=== PATIENT | female | born 1970 | race American Indian/Alaskan Native ===

== ENCOUNTER 2017-11-29 05:04 | Inpatient (IN) | payer BC, OTHER ==
[2017-11-29] MEDS ORDERED: Sodium Chloride 0.9% 1,000 ML IV ONE (05:53)
--- NOTE | 2017-11-29 06:03 | ED PDOC ---
Arrival/HPI - General Historian: Patient - History of Present Illness Time/Duration: 24 hours Symptom Onset: Gradual Symptom Course: Worsening Quality: Stabbing Severity Level: 7 Activities at Onset: Light Context: Sitting <Diogenes Arredondo - Last Filed: 11/29/17 06:59> <Shalom Trcae - Last Filed: 12/01/17 07:25> - General Chief Complaint: Anxiety Time Seen by Provider: 11/29/17 05:16 - History of Present Illness Narrative History of Present Illness (Text): 11/29/17 05:15 CC: Shortness of Breath HPI: Ms. Bello Baca is a 47 year old female with a past medical history of Rheum. arthritis, asthma, and past blood transfusions who presents with a 24 hour history of shortness of breath and chills that awoke the patient from sleep. Patient has been experiencing a cough with sputum production as well. Patient describes right sided chest pain that radiates up into shoulder. Right sided chest Pain is sharp and consistent since yesterday. Patient reports a stressful week of work in [place] which she thinks may have caused her present symptoms along with her racing heart. Patient also admits to poor oral intake and a dry mouth, and has not eaten much in past 2-3 days other than water. Patient describes a 25 pound weight loss in 2.5 months. Patient describes multiple episodes of pneumonia in the past. Patient denies recent international travel. PMHx: Rheum. arthritis, asthma, and past blood transfusions PSHx: Darcy, bilateral wrist fractures with metal placement, gastric bypass surgery All: NKDA Social: denies etoh, substance and tobacco use Fam hx: HTN on both sides Meds: Fe, oxycontin, ibuprofen, protonix, albuterol, Orencia, furosemide 40 mg BID PMD: Dr. Mcmanus Rheum: Dr. Hall ([facility] [place]) (Diogenes Arredondo) Past Medical History - Provider Review Nursing Documentation Reviewed: Yes - Travel History Have you recently traveled outside [place] w/in the past 3 mons?: No - Infectious Disease Hx of Infectious Diseases: None - Tetanus Immunization Tetanus Immunization: Unknown - Cardiac Hx Pacemaker: No - Pulmonary Hx Respiratory Disorders: No - Neurological Hx Neurological Disorder: No - HEENT Hx HEENT Disorder: No - Renal Hx Renal Disorder: No - Endocrine/Metabolic Hx Endocrine Disorders: No - Hematological/Oncological Hx Blood Transfusions: Yes Hx Blood Transfusion Reaction: No - Integumentary Hx Dermatological Disorder: No - Musculoskeletal/Rheumatological Other/Comment: B/L WRIST FX - Gastrointestinal Other/Comment: gastric bypass sx. cholesytectomy - Genitourinary/Gynecological Hx Genitourinary Disorders: No - Psychiatric Hx Emotional Abuse: No Hx Physical Abuse: No Hx Substance Use: No - Surgical History Hx Orthopedic Surgery: Yes (B/L WRIST METAL PLACEMENT) - Anesthesia Hx Anesthesia Reactions: No Hx Malignant Hyperthermia: No - Suicidal Assessment Feels Threatened In Home Enviroment: No <Diogenes Arredondo - Last Filed: 11/29/17 06:59> Family/Social History - Physician Review Nursing Documentation Reviewed: Yes Family/Social History: Unknown Family HX Smoking Status: Never Smoked Hx Alcohol Use: No Hx Substance Use: No Hx Substance Use Treatment: No <Diogenes Arredondo - Last Filed: 11/29/17 06:59> Allergies/Home Meds <Diogenes Arredondo - Last Filed: 11/29/17 06:59> <Trace Rausch DO - Last Filed: 12/01/17 07:25> Allergies/Adverse Reactions: Allergies No Known Allergies Allergy (Verified 04/11/15 19:53) Home Medications: Home Meds Medication Instructions Recorded Confirmed Cholecalciferol [Vitamin D] 50,000 iu PO QWK 11/29/17 11/29/17 Fentanyl 100 mcg TD Q72 11/29/17 11/29/17 Ibuprofen [Motrin Tab] 800 mg PO TID PRN 11/29/17 11/29/17 Omeprazole 40 mg PO DAILY 11/29/17 11/29/17 Oxycodone HCl/Acetaminophen 1 each PO Q6 PRN 11/29/17 11/29/17 [Percocet 10-325 mg Tablet] diaZEpam [Valium] 10 mg PO BID 11/29/17 11/29/17 Review of Systems - Physician Review All systems were reviewed & negative as marked: Yes - Review of Systems Constitutional: Weight Change (25 lb weight loss in 3 months) Eyes: Normal ENT: Normal Respiratory: SOB, Cough, Sputum Cardiovascular: Chest Pain (R sided), Palpitations Gastrointestinal: Normal. absent: Abdominal Pain Genitourinary Female: Normal. absent: Dysuria Musculoskeletal: Normal Skin: Normal Neurological: Headache Endocrine: Normal Hemo/Lymphatic: Normal Psychiatric: Normal, Anxiety <Diogenes Arredondo Last Filed: 11/29/17 06:59> Physical Exam Vital Signs Reviewed: Yes Temperature: Afebrile Blood Pressure: Normal Pulse: Tachycardic Respiratory Rate: Normal Appearance: Positive for: Well-Appearing, Non-Toxic, Uncomfortable (mild) Pain Distress: Mild Mental Status: Positive for: Alert and Oriented X 3 - Systems Exam Head: Present: Atraumatic, Normocephalic Pupils: Present: PERRL Extroacular Muscles: Present: EOMI Conjunctiva: Present: Normal Mouth: Present: Moist Mucous Membranes Neck: Present: Normal Range of Motion Respiratory/Chest: Present: Decreased Breath Sounds, Rhonchi (RLQ>LLQ), Tender to Palpation (R sided TTP midclavicular line T3-T4). No: Clear to Auscultation , Respiratory Distress, Accessory Muscle Use Cardiovascular: Present: Regular Rate and Rhythm, Normal S1, S2, Tachycardic Abdomen: Present: Normal Bowel Sounds. No: Tenderness, Distention, Peritoneal Signs Back: Present: Normal Inspection. No: CVA Tenderness, Midline Tenderness, Paraspinal Tenderness Upper Extremity: Present: Normal Inspection, Tenderness (radiation from R upoper chest pain into R shoulder and back into shoulder blade), Neurovascularly Intact. No: Cyanosis, Edema Lower Extremity: Present: Normal Inspection. No: Edema Neurological: Present: GCS=15, CN II-XII Intact, Speech Normal Skin: Present: Warm, Dry, Normal Color. No: Rashes Psychiatric: Present: Alert, Oriented x 3, Normal Insight, Normal Concentration <Diogenes Arredondo Last Filed: 11/29/17 06:59> Vital Signs Temp Pulse Resp BP Pulse Ox 11/29/17 09:22 98.7 F 105 H 20 98/48 L 97 11/29/17 08:03 116 H 25 H 109/37 L 96 11/29/17 07:35 99.2 F 120 H 20 80/40 L 97 11/29/17 05:23 98.2 F 122 H 18 149/88 100 Medical Decision Making <Diogenes Arredondo Last Filed: 11/29/17 06:59> <Trace Rausch DO - Last Filed: 12/01/17 07:25> ED Course and Treatment: 11/29/17 06:11 Impression: 47 year old female with hx of RA, asthma for asthma attack vs PNA vs panic attack vs arrythmia vs Plan: CBC CMP CXR UA, UDS TSH NS @ 250 mL/hr EKG, Trop POC urine preg test Toradol 30 mg IVP 11/29/17 06:34 EKG: sinus tachy @ [address] elevations or T wave changes. 11/29/17 06:44 Ca 8.3 T bili 1.5 Awaiting remainder of labs. 11/29/17 06:59 Leukocytosis 30k CXR shows RUL infiltrate, most likely pneumonia. Call made to medical sales associate for admission to hospitalist team. Started patient on antibiotics Azithromycin 500 mg IVPB. Blood cultures pending. 11/29/17 07:04 Spoke with medical sales associate and patient will be admitted under hospitalist team for pneumonia treatment. (Diogenes Arredondo) - Lab Interpretations Microbiology Results: Microbiology Results 11/29/17 07:20 Blood Blood Culture - Preliminary NO GROWTH AFTER 24 HOURS 11/29/17 06:49 Urine,Clean Catch Urine Culture - Preliminary Gram Positive Cocci Gram Negative Mitch 11/29/17 06:58 Blood Blood Culture - Preliminary NO GROWTH AFTER 24 HOURS Lab Results: 11/29/17 06:10 11/29/17 06:10 Lab Results 11/29/17 14:00: Lactic Acid 4.7 H* 11/29/17 13:20: Urine Opiates Screen Negative, Urine Methadone Screen Negative, Ur Barbiturates Screen Negative, Ur Phencyclidine Scrn Negative, Ur Amphetamines Screen Negative, U Benzodiazepines Scrn Positive H, U Oth Cocaine Metabols Negative, U Cannabinoids Screen Negative 11/29/17 13:20: Ur L.pneumophila Ag Negative 11/29/17 11:41: POC Glucose (mg/dL) 63 L 11/29/17 11:00: Lactic Acid 3.3 H 11/29/17 09:20: Procalcitonin 20.61 H 11/29/17 08:30: Blood Type A POSITIVE, Antibody Screen Negative, BBK History Checked Patient has bt 11/29/17 06:49: Beta HCG, Quant 5.48 11/29/17 06:49: Free T4 1.42, Thyroxine (T4) 5.6, Total T3 0.33 L 11/29/17 06:49: Iron 31 L, TIBC 325, % Saturation 10 L 11/29/17 06:49: Magnesium 1.6 L, Ferritin 106.0 11/29/17 06:49: Urine Color Yellow, Urine Appearance Clear, Urine pH 6.0, Ur Specific [place] 1.015, Urine Protein 30 H, Urine Glucose (UA) Negative, Urine Ketones Negative, Urine Blood Negative, Urine Nitrate Negative, Urine Bilirubin Negative, Urine Urobilinogen 0.2, Ur Leukocyte Esterase Large H, Urine RBC 1 - 3 , Urine WBC 25 - 30, Ur Epithelial Cells 6 - 8, Amorphous Sediment Few, Urine Bacteria Many, Coarse Granular Casts Trace H, Urine Other Uyeast 11/29/17 06:49: Urine Opiates Screen Positive H, Urine Methadone Screen Negative , Ur Barbiturates Screen Negative, Ur Phencyclidine Scrn Negative, Ur Amphetamines Screen Negative, U Benzodiazepines Scrn Positive H, U Oth Cocaine Metabols Negative, U Cannabinoids Screen Negative 11/29/17 06:10: TSH 3rd Generation 0.13 L 11/29/17 06:10: Sodium 140, Potassium 3.6, Chloride 107, Carbon Dioxide 20 L, Anion Gap 16, BUN 18, Creatinine 1.0, Est GFR ( Amer) > 60, Est GFR (Non- Af Amer) 59, Random Glucose 79, Calcium 8.3 L, Total Bilirubin 1.5 H, AST 37 H, ALT 14, Alkaline Phosphatase 107, Total Protein 6.9, Albumin 3.3, Globulin 3.5, Albumin/Globulin Ratio 0.9 L 11/29/17 06:10: WBC 30.3 H* D, RBC 3.51, Hgb 9.9 L, Hct 30.8 L, MCV 87.7, MCH 28.2, MCHC 32.1, RDW 16.6 H, Plt Count 308, MPV 12.3 H, Gran % 94.4 H, Lymph % ( Auto) 1.7 L, [place] % (Auto) 3.9, Eos % (Auto) 0.0 L, Baso % (Auto) 0.0, Gran # 28.61 H, Lymph # (Auto) 0.5 L, [place] # (Auto) 1.2 H, Eos # (Auto) 0.0, Baso # ( Auto) 0.01, Neutrophils % (Manual) 90 H, Band Neutrophils % 4 H, Lymphocytes % ( Manual) 4 L, Monocytes % (Manual) 1, Toxic Granulation Slight, Platelet Evaluation Normal, Plt Clumps, EDTA Present, Hypochromasia 1+, Anisocytosis ( manual) 1+ 11/29/17 05:00: Lactate Dehydrogenase 752 H, Total Creatine Kinase 46, Troponin I 0.01 - RAD Interpretation Radiology Orders: 11/29/17 05:53 CHEST PORTABLE [RAD] Stat 11/29/17 07:48 CHEST W/O CONTRAST [CT] Stat 11/29/17 14:31 ABD & PELVIS IV CONTRAST ONLY [CT] Stat ANGIO CHEST PE PROTOCOL [CT] Stat - Medication Orders Current Medication Orders: Acetaminophen (Tylenol 325mg Tab) 650 mg PO Q6H PRN PRN Reason: Fever >100.4 F OR mild pain Last Admin: 11/29/17 11:05 Dose: 650 mg MAR Pain/Vitals Document 11/29/17 11:05 RA (Rec: 11/29/17 11:05 RA [id number]) Pain Reassessment Is This A Pain ReAssessment? Yes Sleep Is patient sleeping during reassessment? No Presence of Pain Presence of Pain No Re-Assess: MAR Pain/Vitals Document 11/29/17 12:05 RA (Rec: 11/29/17 13:34 RA [id number]) Pain Reassessment Is This A Pain ReAssessment? Yes Sleep Is patient sleeping during reassessment? No Presence of Pain Presence of Pain No Albuterol Sulfate (Albuterol 0.083% Inhal Bharati (2.5 Mg/3 Ml) Ud) 2.5 mg INH [id number] PRN PRN Reason: Shortness of Breath Last Admin: 11/30/17 14:16 Dose: 2.5 mg Enoxaparin Sodium (Lovenox) 40 mg SC DAILY ANNA PRN Reason: Protocol Last Admin: 11/30/17 12:59 Dose: 40 mg Subcutaneous Administrations Document 11/30/17 12:59 JUR (Rec: 11/30/17 12:59 JUR [id number]) Injection Site MAR Injection Site Left Abdomen Charges for Administration # of Subcutaneous Administrations 1 Hydrocortisone Sodium Succinate (Solu-Cortef) 100 mg IVP Q8 [facility] Last Admin: 12/01/17 05:41 Dose: 100 mg IVP Administration Document 12/01/17 05:41 KGD (Rec: 12/01/17 05:41 KGD [facility] [id number]) Charges for Administration # of IVP Administrations 1 Vancomycin HCl (Vancomycin 1gm) 1 gm in 250 mls @ 167 mls/hr IVPB Q12H ANNA PRN Reason: Protocol Last Admin: 11/29/17 15:08 Dose: 167 mls/hr eMAR Start Stop Document 11/29/17 15:08 RA (Rec: 11/29/17 15:08 RA [id number]) Intravenous Solution Start Date 11/29/17 Start Time 15:08 End Date 11/29/17 End time 16:10 Total Infusion Time 62 Azithromycin (Zithromax 500mg In Ns) 500 mg in 250 mls @ 167 mls/hr IVPB DAILY ANNA PRN Reason: Protocol Last Admin: 11/30/17 12:59 Dose: 167 mls/hr eMAR Start Stop Document 11/30/17 12:59 JUR (Rec: 11/30/17 13:00 JUR [id number]) Intravenous Solution Start Date 11/30/17 Start Time 12:59 End Date 11/30/17 End time 14:29 Total Infusion Time 90 Meropenem (Merrem Iv 1 Gm Premix) 50 mls @ 100 mls/hr IVPB Q8 ANNA PRN Reason: Protocol Stop: 12/04/17 06:29 Last Admin: 12/01/17 05:41 Dose: 100 mls/hr eMAR Start Stop Document 12/01/17 05:41 KGD (Rec: 12/01/17 05:41 KGD [facility] [id number]) Intravenous Solution Start Date 12/01/17 Start Time 05:41 Linezolid (Zyvox 600mg/300ml D5w) 600 mg in 300 mls @ 200 mls/hr IVPB Q12 ANNA PRN Reason: Protocol Stop: 12/06/17 22:01 Last Admin: 11/30/17 21:31 Dose: 200 mls/hr eMAR Start Stop Document 11/30/17 21:31 KGD (Rec: 11/30/17 21:31 KGD [facility] [id number]) Intravenous Solution Start Date 11/30/17 Start Time 21:31 Potassium Chloride 20 meq/ (Sodium Chloride) 1,010 mls @ 200 mls/hr IV .Q5H3M ANNA Ketorolac Tromethamine (Toradol) 30 mg IVP Q6 PRN PRN Reason: Pain, severe (8-10) Last Admin: 12/01/17 03:45 Dose: 30 mg MAR Pain Assessment Document 12/01/17 03:45 KGD (Rec: 12/01/17 03:[address]) Pain Reassessment Is this a pain reassessment? No Sleep Is patient sleeping during reassessment? No Presence of Pain Presence of Pain Yes Pain Scale Used Pain Scale Used Numeric Location Pain Location Body Site Back Description Description Intermittent Intensity of Pain at present 6 IVP Administration Document 12/01/17 03:45 KGD (Rec: 12/01/17 03:[address]) Charges for Administration # of IVP Administrations 1 Lorazepam (Ativan) 1 mg IVP Q6H PRN; Protocol PRN Reason: Nausea/Emesis/Anxiety Last Admin: 11/30/17 19:00 Dose: 1 mg IVP Administration Document 11/30/17 19:00 [id number] (Rec: 11/30/17 19:00 [id number] [id number] ) Charges for Administration # of IVP Administrations 1 Behavioural Document 11/30/17 19:00 [id number] (Rec: 11/30/17 19:00 [id number] [facility] [id number] ) Maintenance Maintenance Dose No Nonmedicinal Nonmedicinal Interventions Redirect Behavior Behavior for Medication: Anxiety Re-Assess: Reassess Psych Meds Document 11/30/17 19:30 KGD (Rec: 11/30/17 20:02 KGD [facility] [id number] Reassess Psych Med Effective Midodrine (Proamatine) 10 mg PO Q8 ANNA Last Admin: 12/01/17 05:41 Dose: 10 mg Morphine Sulfate (Morphine) 1 mg IVP Q4H PRN PRN Reason: Pain, moderate (4-7) Last Admin: 12/01/17 04:02 Dose: 1 mg MAR Pain Assessment Document 12/01/17 04:02 KGD (Rec: 12/01/17 04:02 KGD [facility] [id number]) Pain Reassessment Is this a pain reassessment? No Presence of Pain Presence of Pain Yes Pain Scale Used Pain Scale Used Numeric Location Pain Location Body Site Back Description Description Intermittent Intensity of Pain at present 8 IVP Administration Document 12/01/17 04:02 KGD (Rec: 12/01/17 04:02 KGD [facility] [id number]) Charges for Administration # of IVP Administrations 1 Ondansetron HCl (Zofran Inj) 4 mg IVP Q6H PRN PRN Reason: Nausea/Vomiting Last Admin: 11/30/17 13:00 Dose: 4 mg IVP Administration Document 11/30/17 13:00 JUR (Rec: 11/30/17 13:00 JUR [id number]) Charges for Administration # of IVP Administrations 1 Pantoprazole Sodium (Protonix Ec Tab) 40 mg PO 0600 ANNA Last Admin: 12/01/17 05:41 Dose: 40 mg Discontinued Medications Acetylcysteine (Acetylcysteine 20%) 4 ml IH ONCE ONE Stop: 11/29/17 10:01 Last Admin: 11/29/17 10:58 Dose: 4 ml Albuterol/Ipratropium (Duoneb 3 Mg/0.5 Mg (3 Ml) Ud) 3 ml IH ONCE ONE Stop: 11/29/17 10:01 Last Admin: 11/29/17 10:58 Dose: 3 ml Alprazolam (Xanax) 0.25 mg PO ONCE ONE PRN Reason: Protocol Stop: 11/29/17 18:46 Last Admin: 11/29/17 18:53 Dose: 0.25 mg Behavioural Document 11/29/17 18:53 AE (Rec: 11/29/17 18:53 AE [id number]) Maintenance Maintenance Dose No Nonmedicinal Nonmedicinal Interventions See nurse's notes Behavior Behavior for Medication: Anxiety Re-Assess: Reassess Psych Meds Document 11/29/17 19:53 KGD (Rec: 11/29/17 20:51 KGD [facility] [id number]) Reassess Psych Med Effective Dextrose (Dextrose 50% Inj) 50 ml IVP STAT STA Stop: 11/29/17 11:44 Last Admin: 11/29/17 11:49 Dose: 50 ml IVP Administration Document 11/29/17 11:49 RA (Rec: 11/29/17 11:49 RA [id number]) Charges for Administration # of IVP Administrations 1 Sodium Chloride (Sodium Chloride 0.9%) 1,000 mls @ 250 mls/hr IV .Q4H ONE Stop: 11/29/17 09:52 Last Admin: 11/29/17 06:19 Dose: 250 mls/hr eMAR Start Stop Document 11/29/17 06:19 IT (Rec: 11/29/17 06:20 IT [id number]) Intravenous Solution Start Date 11/29/17 Start Time 06:19 Ceftriaxone Sodium (Rocephin 1 Gram Ivpb) 1 gm in 100 mls @ 100 mls/hr IVPB STAT STA PRN Reason: Protocol Stop: 11/29/17 07:54 Last Admin: 11/29/17 07:25 Dose: 100 mls/hr eMAR Start Stop Document 11/29/17 07:25 SRE (Rec: 11/29/17 07:30 SRE [id number]) Intravenous Solution Start Date 11/29/17 Start Time 07:25 End Date 11/29/17 End time 08:25 Total Infusion Time 60 Azithromycin (Zithromax 500mg In Ns) 500 mg in 250 mls @ 167 mls/hr IVPB STAT STA PRN Reason: Protocol Stop: 11/29/17 08:25 Last Admin: 11/29/17 08:48 Dose: 167 mls/hr eMAR Start Stop Document 11/29/17 08:48 SRE (Rec: 11/29/17 08:48 SRE [id number]) Intravenous Solution Start Date 11/29/17 Start Time 08:48 End Date 11/29/17 End time 10:20 Total Infusion Time 92 Sodium Chloride (Sodium Chloride 0.9%) 1,000 mls @ 999 mls/hr IV .Q1H1M STA Stop: 11/29/17 08:51 Last Admin: 11/29/17 08:14 Dose: 999 mls/hr eMAR Start Stop Document 11/29/17 08:14 SRE (Rec: 11/29/17 08:15 SRE [id number]) Intravenous Solution Start Date 11/29/17 Start Time 07:55 End Date 11/29/17 End time 08:55 Total Infusion Time 60 Magnesium 2 gm/50 ml NS (Magnesium Sulfate 2 Gm/50 Ml Ns) 2 gm in 50 mls @ 50 mls/hr IVPB ONCE ONE Stop: 11/29/17 09:38 Last Admin: 11/29/17 09:01 Dose: 50 mls/hr eMAR Start Stop Document 11/29/17 09:01 SRE (Rec: 11/29/17 09:02 SRE [id number]) Intravenous Solution Start Date 11/29/17 Start Time 09:00 End Date 11/29/17 End time 09:30 Total Infusion Time 30 Sodium Chloride (Sodium Chloride 0.9%) 1,000 mls @ 999 mls/hr IV .Q1H1M STA Stop: 11/29/17 09:39 Last Admin: 11/29/17 09:00 Dose: 999 mls/hr eMAR Start Stop Document 11/29/17 09:00 SRE (Rec: 11/29/17 09:01 SRE [id number]) Intravenous Solution Start Date 11/29/17 Start Time 09:00 End Date 11/29/17 End time 10:00 Total Infusion Time 60 Sodium Chloride (Sodium Chloride 0.9%) 1,000 mls @ 999 mls/hr IV .Q1H1M STA Stop: 11/29/17 11:47 Last Admin: 11/29/17 10:58 Dose: 999 mls/hr eMAR Start Stop Document 11/29/17 10:58 RA (Rec: 11/29/17 10:58 RA [id number]) Intravenous Solution Start Date 11/29/17 Start Time 10:58 End Date 11/29/17 End time 12:00 Total Infusion Time 62 Sodium Chloride (Sodium Chloride 0.9%) 1,000 mls @ 250 mls/hr IV .Q4H [facility] Last Admin: 11/29/17 14:17 Dose: 250 mls/hr eMAR Start Stop Document 11/29/17 14:17 RA (Rec: 11/29/17 14:17 RA [id number]) Intravenous Solution Start Date 11/29/17 Start Time 14:17 End Date 11/29/17 End time 18:30 Total Infusion Time 253 Sodium Chloride (Sodium Chloride 0.9%) 1,000 mls @ 999 mls/hr IV .Q1H1M STA Stop: 11/29/17 11:48 Last Admin: 11/29/17 14:14 Dose: 999 mls/hr eMAR Start Stop Document 11/29/17 14:14 RA (Rec: 11/29/17 14:15 RA [id number]) Intravenous Solution Start Date 11/29/17 Start Time 14:15 End Date 11/29/17 End time 15:15 Total Infusion Time 60 Piperacillin Sod/Tazobactam Sod (Zosyn 3.375 In Ns 100ml) 100 mls @ 200 mls/hr IVPB Q6 ANNA PRN Reason: Protocol Stop: 12/06/17 12:01 Last Admin: 11/29/17 14:10 Dose: 200 mls/hr eMAR Start Stop Document 11/29/17 14:10 RA (Rec: 11/29/17 14:10 RA [id number]) Intravenous Solution Start Date 11/29/17 Start Time 14:10 End Date 11/29/17 End time 15:10 Total Infusion Time 60 Meropenem 1,000 mg/ Sodium (Chloride) 50 mls @ 100 mls/hr IVPB Q8 ANNA PRN Reason: Protocol Stop: 12/04/17 06:29 Sodium Chloride (Sodium Chloride 0.9%) 1,000 mls @ 200 mls/hr IV .Q5H ANNA Last Admin: 11/30/17 00:38 Dose: 200 mls/hr eMAR Start Stop Document 11/30/17 00:38 KGD (Rec: 11/30/17 00:38 KGD [id number]) Intravenous Solution Start Date 11/30/17 Start Time 00:38 Potassium Chloride (Potassium Chloride 10 Meq/100 Ml) 10 meq in 100 mls @ 50 mls/hr IVPB Q2H ANNA Stop: 11/30/17 08:14 Last Admin: 11/30/17 10:26 Dose: 50 mls/hr eMAR Start Stop Document 11/30/17 10:26 JUR (Rec: 11/30/17 10:26 JUR [id number]) Intravenous Solution Start Date 11/30/17 Start Time 10:26 End Date 11/30/17 End time 12:26 Total Infusion Time 120 Potassium Chloride (Potassium Chloride 10 Meq/100 Ml) 10 meq in 100 mls @ 50 mls/hr IVPB Q2H ANNA Stop: 11/30/17 14:14 Last Admin: 11/30/17 14:16 Dose: 50 mls/hr eMAR Start Stop Document 11/30/17 14:16 JUR (Rec: 11/30/17 14:17 JUR [id number]) Intravenous Solution Start Date 11/30/17 Start Time 14:17 End Date 11/30/17 End time 16:17 Total Infusion Time 120 Ketorolac Tromethamine (Toradol) 30 mg IVP STAT STA Stop: 11/29/17 05:56 Last Admin: 11/29/17 06:49 Dose: 30 mg MAR Pain Assessment Document 11/29/17 06:49 IT (Rec: 11/29/17 06:49 IT [id number]) Pain Reassessment Is this a pain reassessment? No Sleep Is patient sleeping during reassessment? No Presence of Pain Presence of Pain Yes Pain Scale Used Pain Scale Used Numeric IVP Administration Document 11/29/17 06:49 IT (Rec: 11/29/17 06:49 IT [id number]) Charges for Administration # of IVP Administrations 1 Re-Assess: MAR Pain Assessment Document 11/29/17 07:49 SRE (Rec: 11/29/17 08:15 SRE [id number]) Pain Reassessment Is this a pain reassessment? 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 / has examined the patient and agrees with the treatment plan. <Trace Rausch DO - Last Filed: 12/01/17 07:25> Disposition/Present on Arrival - Present on Arrival Any Indicators Present on Arrival: No History of DVT/PE: No History of Uncontrolled Diabetes: No Urinary Catheter: No History of Decub. Ulcer: No History Surgical Site Infection Following: None - Disposition Have Diagnosis and Disposition been Completed?: Yes Disposition Time: 07:00 Patient Plan: Admission <Diogenes Arredondo - Last Filed: 11/29/17 06:59> <Trace Rausch DO - Last Filed: 12/01/17 07:25> - Disposition Diagnosis: Pneumonia Disposition: HOSPITALIZED Patient Problems: Current Active Problems Problem Status Onset Pneumonia Acute Condition: FAIR
[2017-11-29 06:35] LABS: CALCIUM 8.3 mg/dL (8.4-10.5); GFR NON-AFRICAN AMERICAN 59
[2017-11-29 06:38] LABS: BASO # 0.01 K/mm3 (0.0-2.0); GRAN # 28.61 (1.4-6.5); GRAN % 94.4 % (50.0-68.0); HEMOGLOBIN 9.9 g/dL (12.0-16.0); LYMPH # 0.5 (1.2-3.4); LYMPH % 1.7 % (22.0-35.0); MEAN CELL VOLUME 87.7 fl (80.0-105.0); MEAN CORPUSCULAR HEMOGLOBIN 28.2 pg (25.0-35.0); MEAN CORPUSCULAR HGB CONC 32.1 g/dl (31.0-37.0); MEAN PLATELET VOLUME 12.3 fl (7.0-11.0); MONO # 1.2 (0.1-0.6); MONO % 3.9 % (1.0-6.0); PLATELET COUNT 308 10^3/uL (120.0-450.0); RBC 3.51 10^6/uL (3.5-6.1); RED CELL DISTRIBUTION WIDTH 16.6 % (11.5-14.5)
[2017-11-29 06:44] LABS: ALB/GLOB RATIO 0.9 (1.1-1.8); ALBUMIN 3.3 g/dL (3.0-4.8); ALT/SGPT 14 U/L (7-56); AST/SGOT 37 U/L (14-36); BLOOD UREA NITROGEN 18 mg/dL (7-21)
[2017-11-29 06:52] LABS: WHITE BLOOD COUNT 30.3 10^3/ul (4.5-11.0)
[2017-11-29] MEDS ORDERED: cefTRIAXone 1 gm 1 GM/100 ML BAG IVPB STA (06:55)
[2017-11-29] MEDS ORDERED: Azithromycin 500MG/NS 250ml 500 MG/250 ML BAG IVPB STA (06:56)
[2017-11-29 07:20] LABS: URINE BILIRUBIN NEGATIVE (NEGATIVE); URINE BLOOD NEGATIVE (NEGATIVE); URINE GLUCOSE (UA) NEGATIVE (NEGATIVE); URINE LEUKOCYTE ESTERASE LARGE Leu/uL (NEGATIVE); URINE PROTEIN 30 mg/dL (<30 mg/dL); URINE UROBILINOGEN 0.2 E.U./dL (<1 E.U./dL)
[2017-11-29 07:24] LABS: URINE APPEARANCE CLEAR (CLEAR); URINE COLOR YELLOW (YELLOW)
[2017-11-29 07:34] LABS: URINE BACTERIA MANY (NEG); URINE WBC 25 - 30 /hpf (0-6)
[2017-11-29 07:35] LABS: URINE AMORPHOUS SEDIMENT FEW; URINE COARSE GRANULAR CAST TRACE /hpf (0-2)
[2017-11-29 07:38] LABS: BARBITURATES, UR NEGATIVE (NEGATIVE); BENZODIAZEPINES, UR POSITIVE (NEGATIVE); OPIATES, UR POSITIVE (NEGATIVE); PHENCYCLIDINE, UR NEGATIVE (NEGATIVE)
[2017-11-29 07:44] LABS: NEUTROPHIL 90 % (50.0-70.0)
[2017-11-29 07:45] LABS: ANISOCYTOSIS 1+; BAND 4 % (0-2); HYPOCHROMIA 1+; LYMPHOCYTE 4 % (22.0-35.0); MONOCYTE 1 % (1.0-6.0); PLATELET CLUMPS PRESENT; PLATELET ESTIMATE NORMAL (NORMAL); TOXIC GRANULATION SLIGHT
[2017-11-29] MEDS ORDERED: Sodium Chloride 0.9% 1,000 ML IV STA ×4 (07:51→10:48)
[2017-11-29] MEDS ORDERED: Sodium Chloride 0.9% 1,000 ML IV SCH ×2 (08:00→11:00)
[2017-11-29 08:17] LABS: IRON 31 ug/dL (45-180)
[2017-11-29 08:26] LABS: TOTAL IRON BINDING CAPACITY 325 ug/dL (265-497)
[2017-11-29 08:31] LABS: % IRON SATURATION 10 % (20-55)
[2017-11-29 08:34] LABS: FREE T4 1.42 ng/dL (0.78-2.19); T4 5.6 ug/dL (5.5-11.0)
[2017-11-29] MEDS ORDERED: Magnesium 2 gm/50 ml NS 2 GM/50 ML BAG IVPB ONE (08:39)
[2017-11-29 08:47] LABS: T3 0.33 ng/mL (0.97-1.69)
[2017-11-29] MEDS: Pantoprazole 20 mg EC Tab PO SCH ×2 (08:48→16:53)
[2017-11-29] MEDS ORDERED: Acetylcysteine 20% Inhal Soln (4ml) IH ONE (10:00)
[2017-11-29] MEDS ORDERED: Albuterol-Ipratrop 3 mg / 0.5 (3 ml) UD IH ONE (10:00)
--- NOTE | 2017-11-29 10:31 | RAD ---
Date of service: 11/29/2017 HISTORY: r/o infiltrate COMPARISON: Chest radiographs 04/11/2015 FINDINGS: LUNGS: Interval right upper lobe pneumonia. Remaining lung [place] clear. PLEURA: No significant pleural effusion identified, no pneumothorax apparent. CARDIOVASCULAR: Normal. OSSEOUS STRUCTURES: No significant abnormalities. VISUALIZED UPPER ABDOMEN: Normal. OTHER FINDINGS: None. IMPRESSION: Interval right upper lobe pneumonia.
--- NOTE | 2017-11-29 10:42 | CT ---
Date of service: 11/29/2017 PROCEDURE: CT Chest without contrast HISTORY: shortness of breath, assess for PNA COMPARISON: Chest CT with contrast 04/11/2015. TECHNIQUE: Contiguous axial images were obtained through the chest without intravenous contrast enhancement. Sagittal and coronal reconstructions were performed. Radiation dose (DLP): 626.80 mGy-cm. This CT exam was performed using one or more of the following dose reduction techniques: Automated exposure control, adjustment of the mA and/or kV according to patient size, and/or use of iterative reconstruction technique. FINDINGS: LUNGS: Dense infiltrate right upper lobe with patchy infiltrate right lower lobe and borderline infiltrate left lower lobe versus left lower lobe basilar atelectasis. Central airways appear clear with no mass identified in well aerated segments. MEDIASTINUM: Unremarkable thoracic aorta. No aneurysm. Normal sized heart. Main pulmonary artery unremarkable. No vascular congestion. No lymphadenopathy. PLEURA: No pleural fluid. No pneumothorax. BONES: No fracture. No destructive lesion. UPPER ABDOMEN: Prior gastric surgery and cholecystectomy reiterated. OTHER FINDINGS: None. IMPRESSION: Dense right upper lobe infiltrate with patchy infiltrate right lower lobe, borderline at the left lower lobe.
--- NOTE | 2017-11-29 11:04 | CP.PCM.HP ---
<Josias Nance - Last Filed: 11/29/17 16:14> History of Present Illness - History of Present Illness History of Present Illness: Hospitalist H&P Josias Nance, PGY-3 IM CC: Shortness of Breath This is a 47 yo F with PMH of RA (on monoclonal antibody tx), asthma, SBO 2/2 intra-abdominal scar tissue, and chronic iron-deficiency anemia on monthly IV iron treatments who [place] [facility] with worsening shortness of breath, right chest wall pain, chills, and malaise x24 hours. Pt reports awaking from sleep yesterday with the shortness of breath and R chest pain, thought it was her asthma, used her rescue inhaler and received some relief. Remained at home through the day and reports fatigue/malaise throughout the day, mostly sleeping through the day. Minimal PO intake for last 2-3 days due to stress, but drinking water every day, tolerating well. This AM, awoke short of breath again , no relief from multiple doses of rescue inhaler over 90 minutes, so had family call EMS. Chest pain is right-sided, radiates through to back, worse with coughing and deep breathing, is reproducible on palpation, described as soreness. Has dry cough, feels like she has sputum to bring up but has been unable to. Describes shortness of breath as feeling like she can't catch her breath, but not actively gasping for air, not frankly tachypnic. Denies emesis, diarrhea, melena, dysuria, hematuria. Does have mild abdominal pain (again described as soreness), reports dry mouth and infrequent urination despite regularly drinking water daily. Reports compliance with all home medications. No focal weakness, no exacerbation with mobilization at home. Does report 25lb weight loss over last 2-3 months, but also reports caring for sick family member then, increased stress and irregular/decreased meal intake during this time (reports eating 1-2 meals a day during that time). Reports subjective fevers and chills. All other ROS in 12-system review negative. In the ED, patient obtained a CXR, concerning for R upper/middle lobe infiltrate , and UA concerning for UTI. Labs were concerning for Leukocytosis > 30, and vitals were concerning for tachycardia up to 120's, and SBP 80's-90's. However , patient remained fully awake, alert, and neurologically intact throughout interview and exam, and clinically appears dry. Also reports PRN Lasix use for seasonal LE swelling, last used in September 2017, but denies routine use for fluid overload, never told she needs a diuretic for her heart. Later after admission to floor, patient continued to be hypotensive and tachycardic. Lactate was obtained, found to be 3.3, code sepsis called at 1132 (please see code sepsis note for further details). PMH: as above PSH: Darcy, bilateral wrist fractures with metal placement, gastric bypass surgery, intra-abdominal scar tissue lysis (no resection as per pt) SocHx: denies etoh, substance and tobacco use FamHx: HTN (both parents) Meds: Fe, oxycontin, ibuprofen, protonix, albuterol, Orencia (last in August), furosemide 40 mg daily PRN PMD: Dr. Mcmanus Rheum: [place] [place] Present on Admission - Present on Admission Any Indicators Present on Admission: No History of DVT/PE: No History of Uncontrolled Diabetes: No Urinary Catheter: No Review of Systems - Review of Systems All systems: reviewed and no additional remarkable complaints except (as per HPI ) Past Patient History - Infectious Disease Hx of Infectious Diseases: None - Tetanus Immunizations Tetanus Immunization: Unknown - Past Social History Smoking Status: Never Smoked - CARDIAC Hx Pacemaker: No - PULMONARY Hx Respiratory Disorders: No - NEUROLOGICAL Hx Neurological Disorder: No - HEENT Hx HEENT Problems: No - RENAL Hx Chronic Kidney Disease: No - ENDOCRINE/METABOLIC Hx Endocrine Disorders: No - HEMATOLOGICAL/ONCOLOGICAL Hx Blood Transfusions: Yes Hx Blood Transfusion Reaction: No - INTEGUMENTARY Hx Dermatological Problems: No - MUSCULOSKELETAL/RHEUMATOLOGICAL Other/Comment: B/L WRIST FX - GASTROINTESTINAL Other/Comment: gastric bypass sx. cholesytectomy - GENITOURINARY/GYNECOLOGICAL Hx Genitourinary Disorders: No - PSYCHIATRIC Hx Emotional Abuse: No Hx Physical Abuse: No Hx Substance Use: No - SURGICAL HISTORY Hx Orthopedic Surgery: Yes (B/L WRIST METAL PLACEMENT) - ANESTHESIA Hx Anesthesia Reactions: No Hx Malignant Hyperthermia: No Meds Allergies/Adverse Reactions: Allergies Allergy/AdvReac Type Severity Reaction Status Date / Time No Known Allergies Allergy Verified 04/11/15 19:53 Physical Exam - Constitutional Additional comments: Ill-appearing/fatigued but not acutely in distress, not toxic in appearance Awake and alert throughout entire interview, exam, and on re-examinations x2 - Head Exam Head Exam: ATRAUMATIC, NORMAL INSPECTION, NORMOCEPHALIC - Eye Exam Eye Exam: EOMI, Normal appearance, PERRL. absent: Conjunctival injection, Scleral icterus Pupil Exam: PERRL. absent: Fixed, Irregular - ENT Exam ENT Exam: Mucous Membranes Dry. absent: Mucous Membranes Moist - Neck Exam Neck exam: Positive for: Full Rom, Normal Inspection. Negative for: Lymphadenopathy, Tenderness, Thyromegaly - Respiratory Exam Respiratory Exam: Chest Wall Tenderness (right chest wall, statically sore but worse with palpation or with deep breathing for auscultation, soreness in corresponding position in patient's back), Decreased Breath Sounds (heavily decreased breath sounds in R upper and middle regions, mildly decreased breath sounds in R base, normal breath sounds on L side), NORMAL BREATHING PATTERN ( not frankly tachypnic, not dyspnic with speech). absent: Accessory Muscle Use, Clear to Auscultation Bilateral, Prolonged Expiratory Phase, Rales, Wheezes, Respiratory Distress, Stridor Additional comments: mild ronchi at R upper/middle regions, but primarily only heavily decreased breath sounds in region - Cardiovascular Exam Cardiovascular Exam: Tachycardia, REGULAR RHYTHM, +S1, +S2. absent: Bradycardia , Diastolic murmur, Irregular Rhythm, JVD, RRR, Systolic Murmur Additional comments: Tachy to 120's on initial exam, improved to 110's after first 1L NS bolus, remained at 110's since despite additional boluses - GI/Abdominal Exam GI & Abdominal Exam: Normal Bowel Sounds, Soft, Tenderness (mild diffuse abdominal tenderness to palpation, most prominent at bilateral lower quadrants and at suprapubic region). absent: Diminished Bowel Sounds, Distended, Firm, Hyperactive Bowel Sounds, Hypoactive Bowel Sounds, Rigid - Extremities Exam Extremities exam: Positive for: normal capillary refill, normal inspection, pedal pulses present. Negative for: calf tenderness, pedal edema, tenderness - Back Exam Back exam: absent: CVA tenderness (L), CVA tenderness (R) Additional comments: tenderness in R upper back in region that corresponds to region where R chest wall pain is (thoracic region, T3-T7 region) - Neurological Exam Additional comments: awake and alert on initial and 2x repeat exams, oriented x4 on re-exam (self, location, time, president), neurologically grossly intact, moving all extremities spontaneously and on command, following all commands appropriately, motor and sensory grossly intact and equal bilaterally - Psychiatric Exam Psychiatric exam: Normal Affect, Normal Mood - Skin Skin Exam: Dry, Intact, Normal Color, Warm Results - Vital Signs Recent Vital Signs: Last Vital Signs Temp 98.7 F 11/29/17 09:26 Pulse 105 H 11/29/17 09:26 Resp 20 11/29/17 09:26 BP 94/48 L 11/29/17 09:26 Pulse Ox 97 11/29/17 09:26 - Labs Result Diagrams: 11/29/17 06:10 11/29/17 06:10 Labs: Laboratory Results - last 24 hr 11/29/17 08:30 Blood Type A POSITIVE Antibody Screen Negative BBK History Checked Patient has bt Assessment & Plan - Assessment and Plan (Free Text) Assessment: This is a 47 yo F with PMH of RA (on monoclonal antibody tx), asthma, SBO 2/2 intra-abdominal scar tissue, and chronic iron-deficiency anemia on monthly IV iron treatments who [place] [facility] [place] worsening shortness of breath, right chest wall pain, chills, and malaise x24 hours. She was admitted for PNA vs UTI, likely sepsis. Unfortunately, patient has remained hypotensive and tachycardic despite aggressive fluid resuscitation, suggestive of septic shock. She is being started on stress dose steroids, is on IV abx as per ID, is undergoing TB workup given recent TNF-a inhibitor use, and is pending stress-dose steroids and possible Central Access and Pressors. Family at bedside/in ICU waiting room updated regularly as patient's condition continued to develop, aware and understand the severity of current condition, understand reasoning for transfer to ICU and possible need for Central Access and Pressor support. Plan: 1) Shortness of breath + malaise -ddx: sepsis (PNA vs UTI) vs asthma exacerbation vs PE -CXR in ED highly suspicious for right upper and/or middle lobe PNA; CT chest ordered, read as dense RUL infiltrate -UA notable for large leuk esterase, 25-30 WBCs, many bacteria; but Epi cells 6- 8, so borderline dirty catch -WBCs 30.3, afebrile in ED but tachycardic to 120's, SBP 80's-90's, but awake and alert, appropriate mentation Code sepsis not initially called as patient clinically dry, and HR improved to 110's after initial 1L NS bolus; remains tachy to 110's and SBP 80's s/p 6L NS Strict I's and O's, ordered coker be placed Lactate on floors after 3L NS bolused 3.3, in light of persistent Tachycardia and Hypotension, Code Sepsis then called Repeat Lactate 4.7, given worsening lactate and lack of response to IV fluids , likely septic shock, Stress dose steroids started and ICU consulted -No CAD/Cardiomyopathy/CHF hx, and satting well on 2L NC, so continue aggressive fluid rehydration Currently s/p 6L NS, has already exceeded 30mL/kg goal for sepsis Continue standing NS IV at 250cc/hr -Received Rocephin and Zithromax IV x1 each in ED -Pending CTA to rule out PE given persistent Tachycardia and hypotension, CT abd /pelvis with IV contrast to assess for possible abd source, r/o abscess -ICU consulted for possible septic shock -Case discussed with ID specialist: in light of recent abatacept use and RUL infiltrate, concern for possible TB Airborne isolation precautions, AFBs x3, and Quantiferon ordered IV abx increased to Vanco, Zosyn, Zithromax Blood, Urine, and sputum cx pending Procal pending 2) Chest Pain -reproducible and worse with deep breathing, not associated with exertion, less likely cardiac in etiology -Trop x1 negative in ED, will trend q8 -EKG in ED concerning for QTc 595, repeat ordered Stat, QTc was 430's, so safe for Zithromax; repeat EKG in AM 3) Tachycardia -suspect dehydration component due to poor urine output, high thirst, and reported PO intake x2-3 days as per patient, but in setting of possible sepsis, concern for possible septic shock picture as well -initially improved with 1L NS to HR 110's, but no further improvement despite 6L NS total -avoid Beta/Calcium-channel blockers due to potential to decrease BP 4) Asthma -Duonebs x1 with mucomyst for chronic cough with sensation of needing to produce sputum without actual production -Satting well on 2L NC, so no scheduled tx needed at this time, Asthma nebs q6 prn Dispo: Remote telemetry pending transfer to ICU, likely pending TLC placement and possible Levophed support, continue IV abx as per ID, condition serious FEN: Clear liquids, NS 250cc/hr Access: Peripheral IVs, Coker, pending likely TLC Consults: ID, ICU Ppx: Protonix for GI, SCDs for DVT Code Status (confirmed with family at bedside): Full Patient seen, examined, and discussed with attending, Dr. Jaime. Decision To Admit - Pt Status Changed To: Hospital Disposition Of: Inpatient Admission - Admit Certification Admit to Inpatient:: After my assessment, the patient will require hospitalization for at least two midnights. This is because of the severity of symptoms shown, intensity of services needed, and/or the medical risk in this patient being treated as an outpatient. - . Bed Request Type: Critical Care <Miriam Jaime - Last Filed: 11/30/17 13:33> Results - Vital Signs Recent Vital Signs: Last Vital Signs Temp 97.9 F 11/30/17 00:00 Pulse 81 11/30/17 06:20 Resp 29 H 11/30/17 06:20 BP 100/59 L 11/30/17 06:00 Pulse Ox 100 11/30/17 06:20 - Labs Result Diagrams: 11/30/17 05:00 11/30/17 05:00 Labs: Laboratory Results - last 24 hr 11/29/17 11/29/17 11/29/17 16:47 16:47 23:45 WBC 35.4 H* RBC 3.09 L Hgb 8.7 L Hct 26.8 L MCV 86.7 MCH 28.2 MCHC 32.5 RDW 16.3 H Plt Count 251 MPV 11.3 H Gran % Lymph % (Auto) [place] % (Auto) Eos % (Auto) Baso % (Auto) Gran # Lymph # (Auto) [place] # (Auto) Eos # (Auto) Baso # (Auto) PT INR APTT Sodium Potassium Chloride Carbon Dioxide Anion Gap BUN Creatinine Est GFR ( Amer) Est GFR (Non-Af Amer) Random Glucose Lactic Acid Calcium Phosphorus Magnesium Total Bilirubin AST ALT Alkaline Phosphatase Troponin I < 0.01 < 0.01 Total Protein Albumin Globulin Albumin/Globulin Ratio Free T4 TSH 3rd Generation 11/29/17 11/30/17 11/30/17 23:45 00:45 05:00 WBC RBC Hgb Hct MCV MCH MCHC RDW Plt Count MPV Gran % Lymph % (Auto) [place] % (Auto) Eos % (Auto) Baso % (Auto) Gran # Lymph # (Auto) [place] # (Auto) Eos # (Auto) Baso # (Auto) PT 15.5 H INR 1.34 APTT 28.1 Sodium 141 Potassium 2.9 L* Chloride 113 H Carbon Dioxide 19 L Anion Gap 11 BUN 15 Creatinine 0.8 Est GFR ( Amer) > 60 Est GFR (Non-Af Amer) > 60 Random Glucose 122 H Lactic Acid 1.7 Calcium 8.2 L Phosphorus 2.9 Magnesium 2.2 Total Bilirubin 0.6 AST 16 ALT 18 Alkaline Phosphatase 98 Troponin I Total Protein 5.8 Albumin 2.6 L Globulin 3.2 Albumin/Globulin Ratio 0.8 L Free T4 TSH 3rd Generation 11/30/17 11/30/17 11/30/17 05:00 05:00 12:00 WBC 36.1 H* RBC 3.03 L Hgb 8.5 L Hct 26.1 L MCV 86.1 MCH 28.1 MCHC 32.6 RDW 16.4 H Plt Count 261 MPV 12.3 H Gran % 94.1 H Lymph % (Auto) 2.7 L [place] % (Auto) 3.2 Eos % (Auto) 0.0 L Baso % (Auto) 0.0 Gran # 33.96 H Lymph # (Auto) 1.0 L [place] # (Auto) 1.2 H Eos # (Auto) 0.0 Baso # (Auto) 0.01 PT INR APTT Sodium 141 Potassium 3.5 L Chloride 114 H Carbon Dioxide 20 L Anion Gap 11 BUN 16 Creatinine 0.7 Est GFR ( Amer) > 60 Est GFR (Non-Af Amer) > 60 Random Glucose 116 H Lactic Acid Calcium 8.4 Phosphorus 3.3 Magnesium 2.2 Total Bilirubin 0.5 AST 50 H D ALT 20 Alkaline Phosphatase 140 H D Troponin I Total Protein 5.8 Albumin 2.7 L Globulin 3.2 Albumin/Globulin Ratio 0.8 L Free T4 1.37 TSH 3rd Generation 0.04 L Attending/Attestation - Attestation I have personally seen and examined this patient.: Yes I have fully participated in the care of the patient.: Yes I have reviewed all pertinent clinical information: Yes Notes (Text): 11/30/17 13:29 attending note; Patient seen and examined with resident In ER. Patient's by the bedside. Patient is alert and awake. Able to give history. Patient is a 47 year-old female with PMH of rheumatoid arthritis(on monoclonal antibody tx), asthma, gastric bypass surgery,SBO 2/2 intra-abdominal scar tissue , and chronic iron-deficiency anemia on monthly IV iron treatments who [place] [facility] with worsening shortness of breath, right chest wall pain, chills, and malaise x24 hours. found to have right-sided pneumonia. Patient was tachycardic and mildly hypotensive in the ER. Responded to IV normal saline. Patient was initially admitted to telemetry floor. Found to have persistent hypotension and elevated lactic acid. code sepsis was called. patient was transferred to ICU. Initially treated with IV Rocephin and Zithromax. Started on Zyvox. ID evaluation requested. patient was put on respiratory isolation to rule out tuberculosis due to immunosuppressive therapy. Patient was evaluated by pulmonary attending Dr. reynoso. Monitor in ICU closely. Nausea or vomiting; CT abdomen and pelvis without po contrast negative for any obstruction. CT chest is negative for pulmonary embolus. Continue aggressive IV fluid /antibiotics. Monitor closely in ICU. The diagnosis and treatment option discussed with patient in detail. 11/30/17 13:30
[2017-11-29 11:19] LABS: TROPONIN I 0.01 ng/mL
[2017-11-29] MEDS ORDERED: Dextrose 50% SYRINGE Inj (50 ml) IVP STA (11:43)
[2017-11-29] MEDS ORDERED: Vancomycin 1gm in NS 250ml 1 GM/250 ML BAG IVPB SCH (11:45)
[2017-11-29] MEDS ORDERED: Piperacillin/Tazobact 3.375 gm 100 ML IVPB SCH (12:00)
--- NOTE | 2017-11-29 12:23 | CARD ---
APPROVED REPORT Date of service: 11/29/2017 EKG Measurement Heart [id number] <Conclusion> Sinus tachycardia Low voltage QRS Nonspecific T wave abnormality Abnormal ECG
--- NOTE | 2017-11-29 12:25 | CARD ---
APPROVED REPORT Date of service: 11/29/2017 EKG Measurement Heart [id number] [id number] <Conclusion> Sinus tachycardia with short [place] Low voltage QRS Borderline ECG
--- NOTE | 2017-11-29 12:54 | CP.PCM.CON ---
History of Present Illness - History of Present Illness History of Present Illness: 47 year old female with PMH of rheumatoid arthritis and has been taking anti- TNF inhibitor for the past 2 years (although intermittently), obesity with BMI 37, arthritis, asthma came in to [facility] [place] complaining of fever, chills, feeling weak and tired for the past 3 days, associated with anorexia. The patient initially had dry cough but then it became productive with yellowish sputum. She is also complaining of right sided chest pain and some shortness of breath. She denies recent travel outside of [place] in the past 3 months, denies antibiotic use in the past 3 months, no diarrhea, no abdominal pain, no dysuria, no headache or dizziness, no sore throat. She states that she was tested to TB with PPD about 4 years ago (apparently negative). In the ED, she was noted to have leukocytosis, and CT chest shows right upper lobe consolidation and right lower lobe infiltrates. Infectious diseases consult is requested to further evaluate and manage. Review of Systems - Review of Systems All systems: reviewed and no additional remarkable complaints except (as per HPI ) Past Patient History - Infectious Disease Hx of Infectious Diseases: None - Tetanus Immunizations Tetanus Immunization: Unknown - Past Social History Smoking Status: Never Smoked - CARDIAC Hx Pacemaker: No - PULMONARY Hx Respiratory Disorders: No - NEUROLOGICAL Hx Neurological Disorder: No - HEENT Hx HEENT Problems: No - RENAL Hx Chronic Kidney Disease: No - ENDOCRINE/METABOLIC Hx Endocrine Disorders: No - HEMATOLOGICAL/ONCOLOGICAL Hx Blood Transfusions: Yes Hx Blood Transfusion Reaction: No - INTEGUMENTARY Hx Dermatological Problems: No - MUSCULOSKELETAL/RHEUMATOLOGICAL Other/Comment: B/L WRIST FX - GASTROINTESTINAL Other/Comment: gastric bypass sx. cholesytectomy - GENITOURINARY/GYNECOLOGICAL Hx Genitourinary Disorders: No - PSYCHIATRIC Hx Emotional Abuse: No Hx Physical Abuse: No Hx Substance Use: No - SURGICAL HISTORY Hx Orthopedic Surgery: Yes (B/L WRIST METAL PLACEMENT) - ANESTHESIA Hx Anesthesia Reactions: No Hx Malignant Hyperthermia: No Meds Allergies/Adverse Reactions: Allergies Allergy/AdvReac Type Severity Reaction Status Date / Time No Known Allergies Allergy Verified 04/11/15 19:53 - Medications Medications: Current Medications Acetaminophen (Tylenol 325mg Tab) 650 mg PO Q6H PRN PRN Reason: Fever >100.4 F OR mild pain Last Admin: 11/29/17 11:05 Dose: 650 mg Albuterol Sulfate (Albuterol 0.083% Inhal Bharati (2.5 Mg/3 Ml) Ud) 2.5 mg INH Q2IFTSS PRN PRN Reason: Shortness of Breath Azithromycin 250 mg/ Sodium (Chloride) 250 mls @ 167 mls/hr IVPB DAILY ANNA PRN Reason: Protocol Sodium Chloride (Sodium Chloride 0.9%) 1,000 mls @ 999 mls/hr IV .Q1H1M STA Stop: 11/29/17 11:47 Last Admin: 11/29/17 10:58 Dose: 999 mls/hr Sodium Chloride (Sodium Chloride 0.9%) 1,000 mls @ 250 mls/hr IV .Q4H ANNA Sodium Chloride (Sodium Chloride 0.9%) 1,000 mls @ 999 mls/hr IV .Q1H1M STA Stop: 11/29/17 11:48 Piperacillin Sod/Tazobactam Sod (Zosyn 3.375 In Ns 100ml) 100 mls @ 200 mls/hr IVPB Q6 ANNA PRN Reason: Protocol Stop: 12/06/17 12:01 Vancomycin HCl (Vancomycin 1gm) 1 gm in 250 mls @ 167 mls/hr IVPB Q12H ANNA PRN Reason: Protocol Azithromycin (Zithromax 500mg In Ns) 500 mg in 250 mls @ 167 mls/hr IVPB DAILY ANNA PRN Reason: Protocol Pantoprazole Sodium (Protonix Ec Tab) 20 mg PO 0600,1600 ANNA Last Admin: 11/29/17 08:48 Dose: 20 mg Physical Exam - Constitutional Appears: In Acute Distress (mild), Chronically Ill - Head Exam Head Exam: NORMAL INSPECTION - Respiratory Exam Respiratory Exam: Decreased Breath Sounds - Cardiovascular Exam Cardiovascular Exam: +S1, +S2 - GI/Abdominal Exam GI & Abdominal Exam: Soft. absent: Tenderness Results - Vital Signs Recent Vital Signs: Last Vital Signs Temp 98.7 F 11/29/17 09:26 Pulse 105 H 11/29/17 09:26 Resp 20 11/29/17 09:26 BP 94/48 L 11/29/17 09:26 Pulse Ox 97 11/29/17 09:26 - Labs Result Diagrams: 11/29/17 06:10 11/29/17 06:10 Labs: Laboratory Results - last 24 hr 11/29/17 11/29/17 08:30 11:00 Lactic Acid 3.3 H Blood Type A POSITIVE Antibody Screen Negative BBK History Checked Patient has bt Assessment & Plan - Assessment and Plan (Free Text) Plan: Assessment Severe sepsis with acute hypoxic respiratory failure from severe right upper lobe, right lower lobe community-acquired pneumonia, but need to R/O TB in this patient with Rheumatoid arthritis on anti-TNF inihibitor rheumatoid arthritis and has been taking anti-TNF inhibitor for the past 2 years (although intermittently) obesity with BMI 37 arthritis asthma Plan was started on Rocephin and Zithromax - will change Rocephin to Vancomycin and Zosyn pending blood cx, sputum cx, PCT, urine Legionella Ag will check sputum AFB x 3 and Quantiferon TB test will check HIV test as well will monitor clinically discussed with medical team
--- NOTE | 2017-11-29 13:26 | CON ---
DATE: 11/29/2017 REQUESTING PHYSICIAN: Amaya Macario MD. CHIEF COMPLAINT: The patient presented with shortness of breath. HISTORY OF PRESENT ILLNESS: Ms. Bello Baca is a 47-year-old obese -[place] female with a history of rheumatoid arthritis, asthma and had a gastric bypass in the past as well. The patient states that, over the last 48 hours, she developed shortness of breath, chills and that woke up her from sleep. She had been experiencing cough and sputum as well. 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 The patient has a history of pneumonia in the past, the last time being approximately 2012 and states that she is on no continuous pulmonary medications. At this time, she is awake and alert and is comfortable on O2 via nasal cannula. The patient states that after the nebulizer treatments, her breathing is much better. She had an episode of hypotension since being admitted to the hospital and was given IV fluids where her blood pressure has corrected and is being monitored closely. It is felt that the patient was dehydrated and with the pneumonia and possible bacteremia, she got a little hypotensive. PAST MEDICAL HISTORY: As above. ALLERGIES: SHE HAS NO KNOWN ALLERGIES. CURRENT MEDICATIONS: Can be evaluated as per the nurse's intake form. SOCIAL HISTORY: No history of smoking, EtOH abuse or drug abuse. FAMILY HISTORY: Noncontributory. REVIEW OF SYSTEMS: CONSTITUTIONAL: No present fever. HEENT: Ear, nose and throat seemed to be within normal limits. CARDIOVASCULAR: The patient presented tachycardic. PULMONARY: The patient has some shortness of breath as well as cough. GASTROINTESTINAL: All negative. : All negative. MUSCULOSKELETAL: All negative. NEUROPSYCHIATRIC: All negative. HEMATOLOGIC: All negative. IMMUNOLOGIC: All negative. INTEGRITY: All negative. PHYSICAL EXAMINATION: VITAL SIGNS: Note that her temperature is 98.7, her pulse is 105, respirations of 20 and BP is 94/48. O2 saturation is 97% on room air. HEENT: Head is atraumatic, normocephalic. Eyes reactive to light. Ears, nose and throat seemed to be within normal limits. NECK: Supple. No JVD. No thyroid enlargement. No lymph nodes. HEART: Has a regular rate and rhythm. Normal S1, S2. LUNGS: Reveal mild rhonchi on the right. ABDOMEN: Soft, nontender. Normal bowel sounds. GENITALIA: Deferred. RECTAL: Deferred. MUSCULOSKELETAL: No joint deformities. EXTREMITIES: Reveal trace lower extremity edema. NEUROLOGIC: She seemed to be grossly intact. DATA: As far as her laboratories, her white count is 30.3, hemoglobin is 9.9 and some hematocrit is 30.8 with platelets with platelets of 308,000. . I have noted here her sodium is 140, potassium 3.6, chloride 107, CO2 of 20 with a BUN of 18, creatinine of 1 and a glucose of 79. The patient's CT scan of her chest reveals dense right upper lobe infiltrate with patchy infiltrate at the right lower lobe, borderline at the left lower lobe. IMPRESSION: As far as my impression, this patient has bilateral pneumonia with possible sepsis. She has hypotension and possible dehydration as well. The patient has a history of obesity, asthma, arthritis and is noted to be anemic. PLAN: As far as our plan, ID consult has been called. Note because the patient has upper lobe infiltrate and that she is being treated for her rheumatoid arthritis with certain medications, ID has recommended isolation and rule out tuberculosis. The patient is getting albuterol as a bronchodilator. She is on Protonix and getting IV fluids as well. She is on vancomycin as well as azithromycin and Zosyn. We will continue to follow along with the other consultants and the primary care doctor. Jj Flores MD
[2017-11-29 13:59] LABS: OPIATES, UR NEGATIVE (NEGATIVE)
[2017-11-29 14:11] LABS: BARBITURATES, UR NEGATIVE (NEGATIVE); BENZODIAZEPINES, UR POSITIVE (NEGATIVE); PHENCYCLIDINE, UR NEGATIVE (NEGATIVE)
[2017-11-29 14:45] VITALS: BMI 37.3
--- NOTE | 2017-11-29 15:04 | PCM.SEPTIC ---
Sepsis Progress Note - Reassessment Type Date of Evaluation: 11/29/17 Time of Evaluation: 14:25 Reassessment Type: Non-invasive reassessment - Non Invasive Reassessment Were the most recent vital sign reviewed: Yes Vital Sign (Latest): Temp Pulse Resp BP Pulse Ox 100 F H 111 H 20 85/43 L 97 11/29/17 14:21 11/29/17 14:21 11/29/17 14:21 11/29/17 14:21 11/29/17 09:26 Cardiovascular: Yes: Tachycardia Respiratory: Yes: Normal Breath Sounds. No: Respiratory Distress Capillary Refill: Normal (Less than 2 sec) Pulses: Normal Radial Skin: Normal Color - Invasive Reassessment (complete 2 of 4) Was a Central Venous Pressure Measurement obtained within 6 Hours after the presentation of septic shock: No Was a bedside cardiovascular ultrasound performed within 6 hours after the presentation of septic shock: No
[2017-11-29] MEDS: Azithromycin 500MG/NS 250ml 500 MG/250 ML BAG IVPB SCH (15:09)
[2017-11-29] MEDS ORDERED: Iodixanol 320 MG/ML 100 ML BOTTLE IV ONE (15:45)
--- NOTE | 2017-11-29 16:50 | CT ---
Date of service: 11/29/2017 PROCEDURE: CT Chest with contrast (Pulmonary Angiogram) HISTORY: r/o PE COMPARISON: Noncontrast chest CT 11/29/[address] angiogram chest 04/11/2015. TECHNIQUE: Axial computed tomography images were obtained of the chest in the pulmonary arterial phase of enhancement. Coronal and sagittal reformatted images were created and reviewed. Intravenous contrast dose: Visipaque 320, a approximately 130 cc. Initial injection failed and had to be repeated. Radiation dose: Total exam DLP = 932.48 mGy-cm. This CT exam was performed using one or more of the following dose reduction techniques: Automated exposure control, adjustment of the mA and/or kV according to patient size, and/or use of iterative reconstruction technique. FINDINGS: PULMONARY ARTERIES: Artifacts obscure the lung bases however there is no definite pulmonary embolus identified. AORTA: No acute findings. No thoracic aortic aneurysm. LUNGS: Dense right upper lobe infiltrate reiterated as well as limited right lower lobe infiltrate and atelectasis in the left lower lobe. PLEURAL SPACES: Unremarkable. No effusion or pneumothorax. HEART: Unremarkable. No cardiomegaly. No significant pericardial effusion. LYMPH NODES: No lymphadenopathy. BONES, CHEST WALL: Unremarkable. No fracture or destructive lesion OTHER FINDINGS: Prior cholecystectomy and gastric surgery reiterated. IMPRESSION: [place] pulmonary embolus grossly evident. Artifacts obscure lung bases however. Clinically correlate further. Dense right upper lobe infiltrate and limited right lower lobe infiltrate reiterated and limited left lower lobe atelectasis reiterated.
[2017-11-29 16:56] LABS: HEMOGLOBIN 8.7 g/dL (12.0-16.0); MEAN CELL VOLUME 86.7 fl (80.0-105.0); MEAN CORPUSCULAR HEMOGLOBIN 28.2 pg (25.0-35.0); MEAN CORPUSCULAR HGB CONC 32.5 g/dl (31.0-37.0); MEAN PLATELET VOLUME 11.3 fl (7.0-11.0); RBC 3.09 10^6/uL (3.5-6.1); RED CELL DISTRIBUTION WIDTH 16.3 % (11.5-14.5)
[2017-11-29 17:01] LABS: WHITE BLOOD COUNT 35.4 10^3/ul (4.5-11.0)
--- NOTE | 2017-11-29 17:18 | CT ---
Date of service: 11/29/2017 PROCEDURE: CT Abdomen and Pelvis with contrast HISTORY: increasing abd pain, hypotensive, r/o abscess COMPARISON: Noncontrast abdomen pelvis CT 04/11/2015. TECHNIQUE: Following the intravenous administration of iodinated contrast material, a CT examination of the abdomen and pelvis performed from the domes of the diaphragms to the symphysis pubis with reformatted datasets provided in axial, sagittal and coronal planes. Oral contrast was not administered as per referring physician request. Contrast dose: See chest CT 11/29/2017. Radiation dose: Total exam DLP = see chest CT 11/29/2017. This CT exam was performed using one or more of the following dose reduction techniques: Automated exposure control, adjustment of the mA and/or kV according to patient size, and/or use of iterative reconstruction technique. FINDINGS: LOWER THORAX: Right lower lobe infiltrate reiterated from prior chest CT 11/30/2015 as well as limited atelectasis left lower lobe. LIVER: Unremarkable. No gross lesion or ductal dilatation. GALLBLADDER AND BILE DUCTS: Prior cholecystectomy. PANCREAS: Unremarkable. No gross lesion or ductal dilatation. SPLEEN: Unremarkable. ADRENALS: Unremarkable. No mass. KIDNEYS AND URETERS: No hydronephrosis or perinephric reactive change. No solid parenchymal mass. Normal excretory renal function appreciated due to delays related to technical failure during contrast injection. VASCULATURE: Unremarkable. No aortic aneurysm. BOWEL: Gastric bypass operative changes are reiterated from lung base sections with distal anastomosis identified at the lower abdomen. No bowel obstruction is identified. Overall bowel appearance, particularly in the upper abdomen, is not significantly changed in the interval with no acute findings clearly demonstrated. Evaluation of the gastrointestinal tract is limited due the lack of oral contrast administration. APPENDIX: Normal appendix. PERITONEUM: Unremarkable. No free fluid. No free air. LYMPH NODES: Unremarkable. No enlarged lymph nodes. BLADDER: [place] catheter is identified within the urine in the urinary bladder which is not completely decompressed. Clinically correlate. REPRODUCTIVE: Unremarkable. BONES: No acute fracture. OTHER FINDINGS: None. IMPRESSION: Lack of oral contrast limits evaluation the gastrointestinal tract. Post gastric by pass operative changes are identified with no bowel obstruction appreciable or gross local bowel mesenteric reaction. No ascites or free air. Prior cholecystectomy.
[2017-11-29] MEDS: Sodium Chloride 0.9% 1,000 ML IV SCH (20:41)
[2017-11-29] MEDS: Meropenem IV 1 gm in NS 50 ML IVPB SCH (21:22)
[2017-11-29] MEDS: Linezolid 600 mg in D5W 300 ml 600 MG/300 ML BAG IVPB SCH (22:26)
[2017-11-30 00:09] LABS: ALB/GLOB RATIO 0.8 (1.1-1.8); ALBUMIN 2.6 g/dL (3.0-4.8); ALT/SGPT 18 U/L (7-56); AST/SGOT 16 U/L (14-36); BLOOD UREA NITROGEN 15 mg/dL (7-21); CALCIUM 8.2 mg/dL (8.4-10.5); GFR NON-AFRICAN AMERICAN > 60
[2017-11-30] MEDS ORDERED: Potassium Chloride 20 mEq ER Tab PO STA ×2 (00:10→10:09)
[2017-11-30] MEDS: Sodium Chloride 0.9% 1,000 ML IV SCH (00:38)
[2017-11-30] MEDS: Pantoprazole 20 mg EC Tab PO SCH (05:14)
[2017-11-30] MEDS: Meropenem IV 1 gm in NS 50 ML IVPB SCH ×3 (05:21→21:31)
[2017-11-30 06:14] LABS: INR 1.34; PARTIAL THROMBOPLASTIN TIME 28.1 Seconds (25.1-36.5); PROTHROMBIN TIME 15.5 SECONDS (9.4-12.5)
[2017-11-30 06:16] LABS: BASO # 0.01 K/mm3 (0.0-2.0); GRAN # 33.96 (1.4-6.5); GRAN % 94.1 % (50.0-68.0); HEMOGLOBIN 8.5 g/dL (12.0-16.0); LYMPH % 2.7 % (22.0-35.0); MEAN CELL VOLUME 86.1 fl (80.0-105.0); MEAN CORPUSCULAR HEMOGLOBIN 28.1 pg (25.0-35.0); MEAN CORPUSCULAR HGB CONC 32.6 g/dl (31.0-37.0); MEAN PLATELET VOLUME 12.3 fl (7.0-11.0); MONO # 1.2 (0.1-0.6); MONO % 3.2 % (1.0-6.0); RBC 3.03 10^6/uL (3.5-6.1); RED CELL DISTRIBUTION WIDTH 16.4 % (11.5-14.5)
[2017-11-30 06:32] LABS: WHITE BLOOD COUNT 36.1 10^3/ul (4.5-11.0)
[2017-11-30 06:50] LABS: ALB/GLOB RATIO 0.8 (1.1-1.8); ALBUMIN 2.7 g/dL (3.0-4.8); ALT/SGPT 20 U/L (7-56); AST/SGOT 50 U/L (14-36); BLOOD UREA NITROGEN 16 mg/dL (7-21); CALCIUM 8.4 mg/dL (8.4-10.5); GFR NON-AFRICAN AMERICAN > 60
--- NOTE | 2017-11-30 08:25 | PN ---
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 No complaints of increased pain. No increased shortness of breath, cough, wheezing, chest congestion. No fever, chills, nausea or vomiting this morning. Her blood pressure is stabilizing and she is continuing to get IV fluids. PHYSICAL EXAMINATION: VITAL SIGNS: Note that her temperature is 97.9, pulse is 81, respirations are 29 and her BP is 100/59. O2 saturation is 100%. HEENT: Head is atraumatic, normocephalic. Eyes are reactive to light. Ears, nose and throat seemed to be within normal limits. NECK: Supple. No JVD. No thyroid enlargement. No lymph nodes. HEART: Has regular rate and rhythm. Normal S1, S2. LUNGS: Reveal mild rhonchi on the right. ABDOMEN: Soft. Decreased bowel sounds. GENITALIA: Deferred. RECTAL: Deferred. MUSCULOSKELETAL: No joint deformities. EXTREMITIES: Reveal trace lower extremity edema. NEUROLOGICAL: She seemed to be grossly intact. DATA: As far as her laboratories are concerned, her white count is 36.1, hemoglobin is 8.5, hematocrit 26.1 with platelets of 361,000. Sodium is 141, potassium 3.5, chloride 114, CO2 of 20 with a BUN of 16, creatinine of 0.7 and a glucose of 116. Chest x-ray reveals bilateral infiltrates, that is an unofficial reading. IMPRESSION: As far as my impression, this patient has bilateral pneumonia with septic shock resulting in hypotension. She has hypotension and some possible dehydration. The patient has a history of obesity, asthma, arthritis and anemia. PLAN: As far as our plan, we will continue to follow closely with ID and continue with the albuterol for bronchodilator. The patient is on meropenem. She is on midodrine as well as Protonix and continues with the sodium chloride. She continues with azithromycin as well. We will continue to treat aggressively along with the other consultants and the primary care doctor. Jj Flores MD
--- NOTE | 2017-11-30 08:27 | RAD ---
Date of service: 11/30/2017 HISTORY: r/o fluid overload COMPARISON: Frontal tree radiographs 11/29/2017. FINDINGS: LUNGS: No interval change in dense infiltrate right upper lobe. Limited patchy density is developing at the inferior right lung zone and is minimal at the mid to inferior left lung zones. PLEURA: No significant pleural effusion identified, no pneumothorax apparent. CARDIOVASCULAR: Normal. OSSEOUS STRUCTURES: No significant abnormalities. VISUALIZED UPPER ABDOMEN: Normal. OTHER FINDINGS: None. IMPRESSION: Mild interval worsening of infiltrates at the right and left bases and mid left lung zone as well. Dense infiltrate unchanged right upper lobe.
--- NOTE | 2017-11-30 09:15 | CP.PCM.PN ---
Subjective - Date & Time of Evaluation Date of Evaluation: 11/30/17 Time of Evaluation: 08:30 - Subjective Subjective: Noted events overnight - patient continued to be hypotensive and patient was brought to the ICU - responded to fluid resuscitation. Had low grade temperatures overnight. No increased shortness of breath, still having difficulty bringing up phlegm. Objective - Vital Signs/Intake and Output Vital Signs (last 24 hours): Temp Pulse Resp BP Pulse Ox 98.7 F 105 H 20 94/48 L 97 11/29/17 09:26 11/29/17 09:26 11/29/17 09:26 11/29/17 09:26 11/29/17 09:26 - Medications Medications: Current Medications Acetaminophen (Tylenol 325mg Tab) 650 mg PO Q6H PRN PRN Reason: Fever >100.4 F OR mild pain Last Admin: 11/29/17 11:05 Dose: 650 mg Albuterol Sulfate (Albuterol 0.083% Inhal Bharati (2.5 Mg/3 Ml) Ud) 2.5 mg INH [id number] PRN PRN Reason: Shortness of Breath Sodium Chloride (Sodium Chloride 0.9%) 1,000 mls @ 250 mls/hr IV .Q4H ANNA Piperacillin Sod/Tazobactam Sod (Zosyn 3.375 In Ns 100ml) 100 mls @ 200 mls/hr IVPB Q6 ANNA PRN Reason: Protocol Stop: 12/06/17 12:01 Vancomycin HCl (Vancomycin 1gm) 1 gm in 250 mls @ 167 mls/hr IVPB Q12H ANNA PRN Reason: Protocol Azithromycin (Zithromax 500mg In Ns) 500 mg in 250 mls @ 167 mls/hr IVPB DAILY ANNA PRN Reason: Protocol Pantoprazole Sodium (Protonix Ec Tab) 20 mg PO 0600,1600 ANNA Last Admin: 11/29/17 08:48 Dose: 20 mg - Constitutional Appears: Chronically Ill, Other (mildly tachypneic) - Head Exam Head Exam: NORMAL INSPECTION - ENT Exam ENT Exam: Mucous Membranes Moist - Neck Exam Neck Exam: absent: Meningismus - Respiratory Exam Respiratory Exam: Decreased Breath Sounds - Cardiovascular Exam Cardiovascular Exam: +S1, +S2 - GI/Abdominal Exam GI & Abdominal Exam: Soft. absent: Tenderness Assessment and Plan - Assessment and Plan (Free Text) Plan: Assessment Severe sepsis with acute hypoxic respiratory failure from severe right upper lobe, right lower lobe community-acquired pneumonia, but need to R/O TB in this patient with Rheumatoid arthritis on anti-TNF inihibitor rheumatoid arthritis and has been taking anti-TNF inhibitor for the past 2 years (although intermittently) obesity with BMI 37 arthritis asthma Plan changed Vancomycin to Zyvox due to reaction and changed Zosyn to Merrem because of persistent hypotension pending blood cx, sputum cx; PCT is elevated at 20.61 - will trend; urine Legionella Ag is negative will check sputum AFB x 3 and Quantiferon TB test will check HIV test as well will continue to monitor clinically discussed with medical team
[2017-11-30] MEDS ORDERED: cefTRIAXone 1 gm 1 GM/100 ML BAG IVPB SCH (10:00)
[2017-11-30] MEDS ORDERED: Azithromycin 250 MG in Sodium Chloride 0.9% 250 ML IVPB SCH (10:00)
--- NOTE | 2017-11-30 10:11 | CP.PCM.PN ---
<Regan King - Last Filed: 11/30/17 12:03> Subjective - Date & Time of Evaluation Date of Evaluation: 11/30/17 Time of Evaluation: 08:11 - Subjective Subjective: Regan King PGY2 IM Progress Note for Dr. Jaime Patient was seen and examined at bedside in ICU. The patient is complaining of back pain and pleuritic chest pain mainly over the right chest wall. She is denying a productive cough and denying any congestion. She denies any abdominal pain, shortness of breath, leg swelling, n/v/d, fevers/chills, headache. Objective - Vital Signs/Intake and Output Vital Signs (last 24 hours): Temp Pulse Resp BP Pulse Ox 97.9 F 81 29 H 100/59 L 100 11/30/17 00:00 11/30/17 06:20 11/30/17 06:20 11/30/17 06:00 11/30/17 06:20 Intake and Output: 11/30/17 11/30/17 06:59 18:59 Intake Total 2860 Output Total 1300 Balance 1560 - Medications Medications: Current Medications Acetaminophen (Tylenol 325mg Tab) 650 mg PO Q6H PRN PRN Reason: Fever >100.4 F OR mild pain Last Admin: 11/29/17 11:05 Dose: 650 mg Albuterol Sulfate (Albuterol 0.083% Inhal Bharati (2.5 Mg/3 Ml) Ud) 2.5 mg INH [id number] PRN PRN Reason: Shortness of Breath Hydrocortisone Sodium Succinate (Solu-Cortef) 100 mg IVP Q8 SILVANO Last Admin: 11/30/17 05:14 Dose: 100 mg Vancomycin HCl (Vancomycin 1gm) 1 gm in 250 mls @ 167 mls/hr IVPB Q12H SILVANO PRN Reason: Protocol Last Admin: 11/29/17 15:08 Dose: 167 mls/hr Azithromycin (Zithromax 500mg In Ns) 500 mg in 250 mls @ 167 mls/hr IVPB DAILY SILVANO PRN Reason: Protocol Last Admin: 11/29/17 15:09 Dose: 167 mls/hr Meropenem (Merrem Iv 1 Gm Premix) 50 mls @ 100 mls/hr IVPB Q8 SILVANO PRN Reason: Protocol Stop: 12/04/17 06:29 Last Admin: 11/30/17 05:21 Dose: 100 mls/hr Sodium Chloride (Sodium Chloride 0.9%) 1,000 mls @ 200 mls/hr IV .Q5H [facility] Last Admin: 11/30/17 00:38 Dose: 200 mls/hr Linezolid (Zyvox 600mg/300ml D5w) 600 mg in 300 mls @ 200 mls/hr IVPB Q12 SILVANO PRN Reason: Protocol Stop: 12/06/17 22:01 Last Admin: 11/29/17 22:26 Dose: 200 mls/hr Potassium Chloride (Potassium Chloride 10 Meq/100 Ml) 10 meq in 100 mls @ 50 mls/hr IVPB Q2H SILVANO Stop: 11/30/17 14:14 Ketorolac Tromethamine (Toradol) 30 mg IVP Q6 PRN PRN Reason: Pain, severe (8-10) Last Admin: 11/30/17 08:50 Dose: 30 mg Midodrine (Proamatine) 10 mg PO Q8 [facility] Last Admin: 11/30/17 05:14 Dose: 10 mg Ondansetron HCl (Zofran Inj) 4 mg IVP Q6H PRN PRN Reason: Nausea/Vomiting Pantoprazole Sodium (Protonix Ec Tab) 20 mg PO 0600,1600 [facility] Last Admin: 11/30/17 05:14 Dose: 20 mg Potassium Chloride (K-Dur 20 Meq Er Tab) 20 meq PO STAT STA Stop: 11/30/17 10:10 - Labs Labs: 11/30/17 05:00 11/30/17 05:00 PT 15.5 SECONDS (9.4-12.5) H 11/30/17 05:00 INR 1.34 11/30/17 05:00 APTT 28.1 Seconds (25.1-36.5) 11/30/17 05:00 - Constitutional Appears: No Acute Distress - Head Exam Head Exam: NORMAL INSPECTION - Eye Exam Eye Exam: EOMI, Normal appearance, PERRL - ENT Exam ENT Exam: Mucous Membranes Moist - Neck Exam Neck Exam: Full ROM, Normal Inspection. absent: Lymphadenopathy, Tenderness - Respiratory Exam Respiratory Exam: Rhonchi, NORMAL BREATHING PATTERN. absent: Rales, Wheezes, Respiratory Distress Additional comments: on RA - Cardiovascular Exam Cardiovascular Exam: RRR, +S1, +S2. absent: Murmur - GI/Abdominal Exam GI & Abdominal Exam: Soft, Normal Bowel Sounds. absent: Distended, Tenderness - Extremities Exam Extremities Exam: Full ROM. 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 She is admitted for severe sepsis 2/2 pnemonia (dense RUL infiltrate w/ patchy infiltrates RLL and LLL on CT, negative for PE) and UTI (gram positive cocci and gram negative rods on urine cx). Patient was transferred to ICU due to weak response to fluid resuscitation, however, MAP has maintained above 65 and patient has not required pressors. She is improving clinically, but due to her history of monoclonal antibody rx, she is on contact precautions and requiring ID work-up to rule out opportunistic infections. Plan: 1. Severe sepsis 2/2 pneumonia and UTI - cont Meropenem, Zyvox and Zithromax - on Midodrine q8 silvano for BP maintenance, not requiring pressors at this time - cont Toradol PRN pain - cont stress-dosed steroids - cont albuterol prn sob - cont tylenol prn fevers - cont zofran prn n/v - blood cx's negative x24hrs - sputum cx pending - Quantiferon and TB cultures (x3) pending, patient is not producing sputum, respiratory therapist required to induce - cont TB airborne precautions until cleared by ID - HIV pending - Leukocytosis is worsening, on steroids, will obtain peripheral smear to be reviewed by pathologist - ID consulted, recs appreciated - maintain MAP > 65 - cont NS @ 200 2. Hx RA - hx of anti-TNF alpha rx - currently asymptomatic 3. Hypokalemia - repleting 4. Hx STEW - monitor H/H - monitor for signs of bleeding - maintain Hgb > 7 5. Possible hyperthyroidism - TSH was noted to be low, so TSH/T4 (free) will be ordered 6. PPX - PTX for GI ppx - Lovenox/SCDs for DVT ppx - diet advanced to D as tolerated Case was reviewed and discussed with attending, Dr. Jaime <Miriam Jaime - Last Filed: 11/30/17 13:39> Objective - Vital Signs/Intake and Output Vital Signs (last 24 hours): Temp Pulse Resp BP Pulse Ox 97.9 F 81 29 H 100/59 L 100 11/30/17 00:00 11/30/17 06:20 11/30/17 06:20 11/30/17 06:00 11/30/17 06:20 Intake and Output: 11/30/17 11/30/17 06:59 18:59 Intake Total 2860 Output Total 1300 Balance 1560 - Medications Medications: Current Medications Acetaminophen (Tylenol 325mg Tab) 650 mg PO Q6H PRN PRN Reason: Fever >100.4 F OR mild pain Last Admin: 11/29/17 11:05 Dose: 650 mg Albuterol Sulfate (Albuterol 0.083% Inhal Bharati (2.5 Mg/3 Ml) Ud) 2.5 mg INH [id number] PRN PRN Reason: Shortness of Breath Enoxaparin Sodium (Lovenox) 40 mg SC DAILY SILVANO PRN Reason: Protocol Last Admin: 11/30/17 12:59 Dose: 40 mg Hydrocortisone Sodium Succinate (Solu-Cortef) 100 mg IVP Q8 SILVANO Last Admin: 11/30/17 05:14 Dose: 100 mg Vancomycin HCl (Vancomycin 1gm) 1 gm in 250 mls @ 167 mls/hr IVPB Q12H SILVANO PRN Reason: Protocol Last Admin: 11/29/17 15:08 Dose: 167 mls/hr Azithromycin (Zithromax 500mg In Ns) 500 mg in 250 mls @ 167 mls/hr IVPB DAILY SILVANO PRN Reason: Protocol Last Admin: 11/30/17 12:59 Dose: 167 mls/hr Meropenem (Merrem Iv 1 Gm Premix) 50 mls @ 100 mls/hr IVPB Q8 SILVANO PRN Reason: Protocol Stop: 12/04/17 06:29 Last Admin: 11/30/17 05:21 Dose: 100 mls/hr Sodium Chloride (Sodium Chloride 0.9%) 1,000 mls @ 200 mls/hr IV .Q5H SILVANO Last Admin: 11/30/17 00:38 Dose: 200 mls/hr Linezolid (Zyvox 600mg/300ml D5w) 600 mg in 300 mls @ 200 mls/hr IVPB Q12 SILVANO PRN Reason: Protocol Stop: 12/06/17 22:01 Last Admin: 11/30/17 10:21 Dose: 200 mls/hr Potassium Chloride (Potassium Chloride 10 Meq/100 Ml) 10 meq in 100 mls @ 50 mls/hr IVPB Q2H SILVANO Stop: 11/30/17 14:14 Ketorolac Tromethamine (Toradol) 30 mg IVP Q6 PRN PRN Reason: Pain, severe (8-10) Last Admin: 11/30/17 08:50 Dose: 30 mg Midodrine (Proamatine) 10 mg PO Q8 SILVANO Last Admin: 11/30/17 05:14 Dose: 10 mg Ondansetron HCl (Zofran Inj) 4 mg IVP Q6H PRN PRN Reason: Nausea/Vomiting Last Admin: 11/30/17 13:00 Dose: 4 mg Pantoprazole Sodium (Protonix Ec Tab) 40 mg PO 0600 [facility] - Labs Labs: 11/30/17 05:00 11/30/17 05:00 PT 15.5 SECONDS (9.4-12.5) H 11/30/17 05:00 INR 1.34 11/30/17 05:00 APTT 28.1 Seconds (25.1-36.5) 11/30/17 05:00 Attending/Attestation - Attestation I have personally seen and examined this patient.: Yes I have fully participated in the care of the patient.: Yes I have reviewed all pertinent clinical information, including history, physical exam and plan: Yes Notes (Text): 11/30/17 13:34 attending note; Patient seen and examined with resident In ICU. Patient's by the bedside. Patient is alert and awake. Able to give history. complaining of mild shortness of breath. Complaining of pleuritic chest pain mostly in the right side. 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 septic shock is resolving. tachycardia resolved. lactic acidosis resolved. Hypotension Improved. On stress dose of steroids. Right-sided pnumonia; continue treatment with IV Zyvox, meropenem and azithromycin. ID evaluation appreciated. patient was put on respiratory isolation to rule out tuberculosis due to immunosuppressive therapy. patient has no sputum production. Advised to induce sputum by respiratory therapist. CT chest is negative for pulmonary embolus. Nausea or vomiting; CT abdomen and pelvis without po contrast negative for any obstruction. continue Zofran. GI evaluation requested. Continue aggressive IV fluid /antibiotics. Monitor closely in ICU. The diagnosis and treatment option discussed with patient in detail.
[2017-11-30] MEDS: Linezolid 600 mg in D5W 300 ml 600 MG/300 ML BAG IVPB SCH ×2 (10:21→21:31)
--- NOTE | 2017-11-30 12:29 | CARD ---
APPROVED REPORT Date of service: 11/30/2017 EKG Measurement Heart [id number] 170P22 [id number] <Conclusion> Normal sinus rhythm Low voltage QRS Borderline ECG
[2017-11-30 12:51] LABS: FREE T4 1.37 ng/dL (0.78-2.19)
[2017-11-30] MEDS: Enoxaparin 40 mg Syringe SC SCH (12:59)
[2017-11-30] MEDS: Azithromycin 500MG/NS 250ml 500 MG/250 ML BAG IVPB SCH (12:59)
[2017-11-30] MEDS: Albuterol 0.083% Inhal Sol (2.5 mg/3 mL) UD INH PRN (14:16)
[2017-11-30] MEDS: Sodium Chloride 3% for Inhalation 4 ML VIAL.NEB IH PRN (14:23)
[2017-11-30] MEDS: Morphine 2 mg/ml ISec IVP PRN ×2 (18:17→22:00)
[2017-11-30 19:06] LABS: ALBUMIN 2.8 g/dL (3.0-4.8); CALCIUM 8.9 mg/dL (8.4-10.5)
[2017-12-01] MEDS: Morphine 2 mg/ml ISec IVP PRN (04:02)
[2017-12-01] MEDS: Pantoprazole 40 mg EC Tab PO SCH (05:41)
[2017-12-01] MEDS: Meropenem IV 1 gm in NS 50 ML IVPB SCH ×3 (05:41→21:16)
--- NOTE | 2017-12-01 06:14 | CP.PCM.PN ---
<Myranda Enrique - Last Filed: 12/01/17 15:18> Subjective - Date & Time of Evaluation Date of Evaluation: 12/01/17 Time of Evaluation: 07:00 - Subjective Subjective: PGY-1 Myranda Enrique D.O. Medicine progress note for Dr. Shelton's service: Patient was seen and examined this morning. No events reported over night. Patient is on isolation for TB work-up. Patient denies active cough, but she is attempting to produce sputum- able to provide one sample thus far. Denies any chest pain. Complains of chronic back pain; frequently requests pain medications. Patient endorses fatigue. She is tolerating a regular diet but does not have a good appetite. She denies current SOB. Denies dysuria. She is asking if she can get out of bed to walk around. Objective - Vital Signs/Intake and Output Vital Signs (last 24 hours): Temp Pulse Resp BP Pulse Ox 98.2 F 45 L 105 H 119/60 68 L 11/30/17 16:00 11/30/17 22:00 11/30/17 17:30 11/30/17 17:00 11/30/17 17:30 Intake and Output: 11/30/17 12/01/17 18:59 06:59 Intake Total 2530 Output Total 400 Balance 2130 - Medications Medications: Current Medications Acetaminophen (Tylenol 325mg Tab) 650 mg PO Q6H PRN PRN Reason: Fever >100.4 F OR mild pain Last Admin: 11/29/17 11:05 Dose: 650 mg Albuterol Sulfate (Albuterol 0.083% Inhal Bharati (2.5 Mg/3 Ml) Ud) 2.5 mg INH [id number] PRN PRN Reason: Shortness of Breath Last Admin: 11/30/17 14:16 Dose: 2.5 mg Enoxaparin Sodium (Lovenox) 40 mg SC DAILY ANNA PRN Reason: Protocol Last Admin: 11/30/17 12:59 Dose: 40 mg Hydrocortisone Sodium Succinate (Solu-Cortef) 100 mg IVP Q8 ANNA Last Admin: 12/01/17 05:41 Dose: 100 mg Vancomycin HCl (Vancomycin 1gm) 1 gm in 250 mls @ 167 mls/hr IVPB Q12H ANNA PRN Reason: Protocol Last Admin: 11/29/17 15:08 Dose: 167 mls/hr Azithromycin (Zithromax 500mg In Ns) 500 mg in 250 mls @ 167 mls/hr IVPB DAILY [facility] PRN Reason: Protocol Last Admin: 11/30/17 12:59 Dose: 167 mls/hr Meropenem (Merrem Iv 1 Gm Premix) 50 mls @ 100 mls/hr IVPB Q8 ANNA PRN Reason: Protocol Stop: 12/04/17 06:29 Last Admin: 12/01/17 05:41 Dose: 100 mls/hr Linezolid (Zyvox 600mg/300ml D5w) 600 mg in 300 mls @ 200 mls/hr IVPB Q12 ANNA PRN Reason: Protocol Stop: 12/06/17 22:01 Last Admin: 11/30/17 21:31 Dose: 200 mls/hr Potassium Chloride 20 meq/ (Sodium Chloride) 1,010 mls @ 200 mls/hr IV .Q5H3M [facility] Ketorolac Tromethamine (Toradol) 30 mg IVP Q6 PRN PRN Reason: Pain, severe (8-10) Last Admin: 12/01/17 03:45 Dose: 30 mg Lorazepam (Ativan) 1 mg IVP Q6H PRN; Protocol PRN Reason: Nausea/Emesis/Anxiety Last Admin: 11/30/17 19:00 Dose: 1 mg Midodrine (Proamatine) 10 mg PO Q8 [facility] Last Admin: 12/01/17 05:41 Dose: 10 mg Morphine Sulfate (Morphine) 1 mg IVP Q4H PRN PRN Reason: Pain, moderate (4-7) Last Admin: 12/01/17 04:02 Dose: 1 mg Ondansetron HCl (Zofran Inj) 4 mg IVP Q6H PRN PRN Reason: Nausea/Vomiting Last Admin: 11/30/17 13:00 Dose: 4 mg Pantoprazole Sodium (Protonix Ec Tab) 40 mg PO 0600 [facility] Last Admin: 12/01/17 05:41 Dose: 40 mg - Labs Labs: 11/30/17 05:00 11/30/17 18:40 PT 15.5 SECONDS (9.4-12.5) H 11/30/17 05:00 INR 1.34 11/30/17 05:00 APTT 28.1 Seconds (25.1-36.5) 11/30/17 05:00 - Constitutional Appears: Non-toxic, No Acute Distress - Head Exam Head Exam: ATRAUMATIC, NORMAL INSPECTION, NORMOCEPHALIC - Eye Exam Eye Exam: EOMI, Normal appearance - ENT Exam ENT Exam: Mucous Membranes Moist, Normal Exam - Neck Exam Neck Exam: Normal Inspection. absent: Lymphadenopathy, Thyromegaly - Respiratory Exam Respiratory Exam: Decreased Breath Sounds (bases), NORMAL BREATHING PATTERN. absent: Wheezes - Cardiovascular Exam Cardiovascular Exam: Bradycardia (~40), REGULAR RHYTHM, +S1, +S2 - GI/Abdominal Exam GI & Abdominal Exam: Soft. absent: Tenderness - Rectal Exam Rectal Exam: Deferred - Extremities Exam Extremities Exam: Normal Capillary Refill, Normal Inspection. absent: Pedal Edema - Neurological Exam Neurological Exam: Alert, Awake, CN II-XII Intact, Oriented x3 Neuro motor strength exam: Left Upper Extremity: 5, Right Upper Extremity: 5, Left Lower Extremity: 5, Right Lower Extremity: 5 - Psychiatric Exam Psychiatric exam: Flat Affect, Normal Mood - Skin Skin Exam: Dry, Normal Color, Warm Assessment and Plan - Assessment and Plan (Free Text) Assessment: Patient is a 47 yo AA female with a history of RA on monoclonal Ab, asthma/COPD , gastric bypass with subsequent SBO, and iron deficiency anemia who presented with SOB, R chest wall pain, significant fatigue, and subjective fevers and chills. She was found to have significant leukocytosis. Imaging demonstrated RUL , RLL infiltrates and d/l atelectasis. UA is consistent with UTI. Patient was hypotensive with weak response to IVF, and was transferred to the ICU. She has not required pressors thus far. Patient was placed on isolation for concern of opportunistic infections 2/2 immunosuppression from monoclonal Ab use. Plan: Septic shock 2/2 PNA and UTI, improving- h/o asthma/COPD - CT chest: Dense right upper lobe infiltrate with patchy infiltrate right lower lobe, borderline at the left lower lobe - CTA chest: No evidence of PE - CXR 11/30: Mild interval worsening of infiltrates at the right and left bases and mid left lung zone as well. Dense infiltrate unchanged right upper lobe. - Isolation precautions (TB) - Afebrile- Tmax 100 on 11/29 - Tylenol 650 mg PO q6hrs PRN fever - Lactate 3.3 - Procalcintonin 20.61 - WBC 33.3, stable - SBP range 72-119, maintain MAP >65 - Minodrine 10 mg PO q8hrs - NS @ 200 mL/hr - Pressors if necessary- pt has not required - Blood Cx negative >48 hrs - Urine Cx- Strep anginosus (>100,000) sensitive to vanco and PCN, GNR (<10, 000), yeast - Sputum Cx, AFB x3 - Urine L. pneumophila Ag negative - HIV nonreactive - Discontinue Azithromycin due to potential of bradycardia and QTc prolongation - Meropenem 1 g IV q8hrs (started 11/29) - Linezolid 600 mg IV q12hrs (started 11/29) - Start Doxycycline 100 mg IV q12hrs (started 12/01) - Albuterol 2.5 mg INH q6hrs PRN SOB - Toradol 30 mg IV q6hrs PRN pain - Morphine 1 mg q4hrs PRN pain - Discontinue Hydrocortisone - F/u peripheral smear - F/u quantiferon - F/u LE Dopplers - ICU consulted (Mark) - ID consulted (Damián)- suspect CAP but need to r/o TB, trend procal, changed Vancomycin to Zyvox due to reaction and changed Zosyn to Merrem because of persistent hypotension Bradycardia (HR 30s-40s) - EKG 12/01: marked sinus bradycardia, low voltage QRS - F/u echo - F/u lupus panel - Cardiology consulted (Edilberto) H/o SBO s/p gastric bypass in 2001- pt had one episode of vomiting yesterday, intermittent nausea and abdominal pain - CT A/P: Post gastric by pass operative changes are identified with no bowel obstruction appreciable or gross local bowel mesenteric reaction. No ascites or free air. Prior cholecystectomy. - Zofran 4 mg IV q6hrs PRN - Ativan 1 mg IV q6hrs PRN N/V/anxiety - F/u hepatitis panel - GI consulted (Lorrie)- suspect N/V 2/2 sepsis vs medication intolerance Iron deficiency anemia- current Hgb 8.4, no signs of active bleed - Iron low (31), TIBC wnl (325), % sat low (10), ferritin wnl (106) - Monitor daily - Maintain Hgb >7, transfusion if necessary Low TSH (0.04) - Free T4 wnl (5.6) - T3 low (0.33) Hypokalemia, resolved - Repleted - Monitor daily Rheumatoid Arthritis- currently asymptomatic - Hold anti-TNF alpha - Work-up for opportunistic infections IVF: NS @ 200 GI ppx: Protonix 40 mg PO daily VTE ppx: Lovenox 40 mg SC, SCDs Diet: heart healthy Code status: full code Case was discussed with attending, Dr. Shelton. <Arelis Shelton R - Last Filed: 12/02/17 19:00> Objective - Vital Signs/Intake and Output Vital Signs (last 24 hours): Temp Pulse Resp BP Pulse Ox 98.6 F 40 L 20 108/85 100 12/02/17 18:00 12/02/17 18:00 12/02/17 18:00 12/02/17 18:00 12/02/17 18:00 Intake and Output: 12/02/17 12/02/17 06:59 18:59 Intake Total 700 850 Output Total 700 550 Balance 0 300 - Medications Medications: Current Medications Acetaminophen (Tylenol 325mg Tab) 650 mg PO Q6H PRN PRN Reason: Fever >100.4 F OR mild pain Last Admin: 12/02/17 10:51 Dose: 650 mg Albuterol Sulfate (Albuterol 0.083% Inhal Bharati (2.5 Mg/3 Ml) Ud) 2.5 mg INH [id number] PRN PRN Reason: Shortness of Breath Last Admin: 12/02/17 16:20 Dose: 2.5 mg Enoxaparin Sodium (Lovenox) 40 mg SC DAILY ANNA PRN Reason: Protocol Last Admin: 12/02/17 10:53 Dose: 40 mg Meropenem (Merrem Iv 1 Gm Premix) 50 mls @ 100 mls/hr IVPB Q8 ANNA PRN Reason: Protocol Stop: 12/04/17 06:29 Last Admin: 12/02/17 14:36 Dose: 100 mls/hr Linezolid (Zyvox 600mg/300ml D5w) 600 mg in 300 mls @ 200 mls/hr IVPB Q12 ANNA PRN Reason: Protocol Stop: 12/06/17 22:01 Last Admin: 12/02/17 10:50 Dose: 200 mls/hr Doxycycline Hyclate 100 mg/ (Sodium Chloride) 100 mls @ 100 mls/hr IVPB Q12 ANNA PRN Reason: Protocol Last Admin: 12/02/17 10:50 Dose: 100 mls/hr Lactobacillus Acidophilus (Bacid Acidophilus) 1 cap PO BID ANNA Last Admin: 12/02/17 18:14 Dose: 1 cap Midodrine (Proamatine) 5 mg PO TID ANNA Morphine Sulfate (Morphine) 1 mg IVP Q4H PRN PRN Reason: Pain, moderate (4-7) Last Admin: 12/02/17 12:59 Dose: 1 mg Ondansetron HCl (Zofran Inj) 4 mg IVP Q6H PRN PRN Reason: Nausea/Vomiting Last Admin: 11/30/17 13:00 Dose: 4 mg Pantoprazole Sodium (Protonix Ec Tab) 40 mg PO 0600 ANNA Last Admin: 12/02/17 06:28 Dose: 40 mg - Labs Labs: 12/02/17 06:10 12/02/17 06:10 PT 15.5 SECONDS (9.4-12.5) H 11/30/17 05:00 INR 1.34 11/30/17 05:00 APTT 28.1 Seconds (25.1-36.5) 11/30/17 05:00 Attending/Attestation - Attestation I have personally seen and examined this patient.: Yes I have fully participated in the care of the patient.: Yes I have reviewed all pertinent clinical information, including history, physical exam and plan: Yes Notes (Text): Patient seen and examined by me at 10:55AM on 12/01/17 with resident. Case including HPI, physical exam, and assessment and plan discussed with resident. Agree with above with following additions/corrections. 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 Patient states that she is feeling ok. States she has some nausea. Patient states she has a loss of appetite. Complains of some abdominal "soreness." Patient is having bowel movements. No fevers or chills. No headaches or dizziness. No chest pain or shortness of breath. No dysuria. Physical exam: General: Awake and alert lying in bed in no acute distress HEENT: Normocephalic atraumatic. Extraocular muscles intact. Pupils equal reactive. No scleral icterus. Oropharynx is pink and moist. No pharyngeal erythema or exudate appreciated. Neck is supple. Cardiovascular: Normal rhythm. Normal S1, S2. No murmurs, rubs, or gallops appreciated Pulmonary: Normal respiratory effort. No rhonchi, rales or wheezing appreciated. Gastrointestinal: Soft, nondistended. Positive tenderness lower abdomen and suprapubic area. Positive bowel sounds all 4 quadrants, no guarding. Musculoskeletal: Moves all extremities, no calf tenderness, no edema appreciated. Central nervous system: AAO x 3. CN 2-12 grossly intact. Dermatologic: Skin warm and dry. 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 1. Severe sepsis. Improving. Secondary to UTI and pneumonia. ID following, recommendations appreciated. Urine culture positive for streptococcus anginosus. Blood culture with no growth. Rule out TB. Quantiferon and sputum for AFB pending. Chest CT per radiologist shows dense right upper lobe infiltrate with patchy infiltrate right lower lobe, boderline at left lower lobe. CTA chest per radiologist showed no pulmonary embolus, artifacts obscure long bases however; dense right upper lobe infiltrate and limited right lower lobe infiltrate reiterated and limited left lower lobe atelectasis reiterated. Chest xray 11/30/17 per radiologist showed mild interval worsening of infiltrates at the right and left bases and mid left lung zone as well, dense infiltrate unchanged right upper lobe. Continue Zyvox, doxycycline, and meropenem. Lactic acid improved to 1.7. Procalcitonin was 20.61. Leukocytosis improved. Patient is afebrile. 2. Abdominal pain. Nausea and vomiting. Improved. CT abd/pelvis per radiologist showed post gastric bypass operative changes are identified with no bowel obstruction appreciable or gross local bowel mesenteric reaction; no ascites or free air; prior cholecystectomy. Continue Zofran. GI following, recommendations appreciated. Hepatitis panel negative. 3. Bradycardia. Unclear etiology. Cardiology following, recommendations appreciated. 2D echo pending. Lupus panel pending. Continue to monitor on telemetry. 4. Iron deficiency anemia. Patient get IV iron infusions as an outpatient. Continue to monitor CBC. 5. Abnormal TSH. Patient will need repeat thyroid studies. Free T4 within normal limits. 6. Hypokalemia. Resolved. Continue to monitor. 7. Rheumatoid Arthritis. Home medications held for now secondary to acute infection. 8. GI/DVT prophylaxis. Protonix and Lovenox. Case was discussed in detail with the patient regarding current diagnosis and treatment plan.
[2017-12-01] MEDS: Sodium Chloride 3% for Inhalation 4 ML VIAL.NEB IH PRN (06:15)
[2017-12-01 06:16] LABS: GRAN # 30.95 (1.4-6.5); HEMOGLOBIN 8.4 g/dL (12.0-16.0); LYMPH # 1.3 (1.2-3.4); MEAN CELL VOLUME 86.3 fl (80.0-105.0); MEAN CORPUSCULAR HEMOGLOBIN 28.1 pg (25.0-35.0); MEAN CORPUSCULAR HGB CONC 32.6 g/dl (31.0-37.0); MEAN PLATELET VOLUME 12.6 fl (7.0-11.0); RBC 2.99 10^6/uL (3.5-6.1); RED CELL DISTRIBUTION WIDTH 16.4 % (11.5-14.5)
[2017-12-01 06:26] LABS: WHITE BLOOD COUNT 33.3 10^3/ul (4.5-11.0)
[2017-12-01 06:40] LABS: ALB/GLOB RATIO 0.9 (1.1-1.8); ALBUMIN 2.8 g/dL (3.0-4.8); ALT/SGPT 20 U/L (7-56); AST/SGOT 22 U/L (14-36); BLOOD UREA NITROGEN 21 mg/dL (7-21); CALCIUM 8.5 mg/dL (8.4-10.5); GFR NON-AFRICAN AMERICAN > 60
[2017-12-01] MEDS: Azithromycin 500MG/NS 250ml 500 MG/250 ML BAG IVPB SCH (09:22)
[2017-12-01] MEDS: Enoxaparin 40 mg Syringe SC SCH (09:22)
[2017-12-01] MEDS: Linezolid 600 mg in D5W 300 ml 600 MG/300 ML BAG IVPB SCH ×2 (09:23→21:17)
--- NOTE | 2017-12-01 10:16 | CARD ---
APPROVED REPORT Date of service: 12/01/2017 EKG Measurement Heart [id number] <Conclusion> Marked sinus bradycardia Low voltage QRS Cannot rule out Anterior infarct, age undetermined Abnormal ECG
--- NOTE | 2017-12-01 11:52 | CP.PCM.PN ---
Subjective - Date & Time of Evaluation Date of Evaluation: 12/01/17 Time of Evaluation: 09:05 - Subjective Subjective: Comfortable in bed, no chest pain, shortness of breath is somewhat improved, no abdominal pain. Objective - Vital Signs/Intake and Output Vital Signs (last 24 hours): Temp Pulse Resp BP Pulse Ox 97.9 F 81 29 H 100/59 L 100 11/30/17 00:00 11/30/17 06:20 11/30/17 06:20 11/30/17 06:00 11/30/17 06:20 Intake and Output: 11/30/17 11/30/17 06:59 18:59 Intake Total 2860 Output Total 1300 Balance 1560 - Medications Medications: Current Medications Acetaminophen (Tylenol 325mg Tab) 650 mg PO Q6H PRN PRN Reason: Fever >100.4 F OR mild pain Last Admin: 11/29/17 11:05 Dose: 650 mg Albuterol Sulfate (Albuterol 0.083% Inhal Bharati (2.5 Mg/3 Ml) Ud) 2.5 mg INH [id number] PRN PRN Reason: Shortness of Breath Hydrocortisone Sodium Succinate (Solu-Cortef) 100 mg IVP Q8 ANNA Last Admin: 11/30/17 05:14 Dose: 100 mg Vancomycin HCl (Vancomycin 1gm) 1 gm in 250 mls @ 167 mls/hr IVPB Q12H ANNA PRN Reason: Protocol Last Admin: 11/29/17 15:08 Dose: 167 mls/hr Azithromycin (Zithromax 500mg In Ns) 500 mg in 250 mls @ 167 mls/hr IVPB DAILY ANNA PRN Reason: Protocol Last Admin: 11/29/17 15:09 Dose: 167 mls/hr Meropenem (Merrem Iv 1 Gm Premix) 50 mls @ 100 mls/hr IVPB Q8 ANNA PRN Reason: Protocol Stop: 12/04/17 06:29 Last Admin: 11/30/17 05:21 Dose: 100 mls/hr Sodium Chloride (Sodium Chloride 0.9%) 1,000 mls @ 200 mls/hr IV .Q5H ANNA Last Admin: 11/30/17 00:38 Dose: 200 mls/hr Linezolid (Zyvox 600mg/300ml D5w) 600 mg in 300 mls @ 200 mls/hr IVPB Q12 ANNA PRN Reason: Protocol Stop: 12/06/17 22:01 Last Admin: 11/29/17 22:26 Dose: 200 mls/hr Ketorolac Tromethamine (Toradol) 30 mg IVP Q6 PRN PRN Reason: Pain, severe (8-10) Last Admin: 11/30/17 08:50 Dose: 30 mg Midodrine (Proamatine) 10 mg PO Q8 ANNA Last Admin: 11/30/17 05:14 Dose: 10 mg Pantoprazole Sodium (Protonix Ec Tab) 20 mg PO 0600,1600 ANNA Last Admin: 11/30/17 05:14 Dose: 20 mg - Labs Labs: 11/30/17 05:00 11/30/17 05:00 PT 15.5 SECONDS (9.4-12.5) H 11/30/17 05:00 INR 1.34 11/30/17 05:00 APTT 28.1 Seconds (25.1-36.5) 11/30/17 05:00 - Constitutional Appears: Chronically Ill - Head Exam Head Exam: NORMAL INSPECTION - ENT Exam ENT Exam: Mucous Membranes Moist - Neck Exam Neck Exam: absent: Meningismus - Respiratory Exam Respiratory Exam: Decreased Breath Sounds, Rales (scattered) - Cardiovascular Exam Cardiovascular Exam: +S1, +S2 - GI/Abdominal Exam GI & Abdominal Exam: Soft. absent: Tenderness Assessment and Plan - Assessment and Plan (Free Text) Plan: Assessment Severe sepsis with acute hypoxic respiratory failure from severe right upper lobe, right lower lobe community-acquired pneumonia, but need to R/O TB in this patient with Rheumatoid arthritis on anti-TNF inihibitor bradycardia, etiology to be determined rheumatoid arthritis and has been taking anti-TNF inhibitor for the past 2 years (although intermittently) obesity with BMI 37 arthritis asthma Plan continue Zyvox, Merrem day 3 because of persistent hypotension and changed Zithromax to Doxycycline because of bradycardia and somewhat prolonged QT on EKGpending blood cx, sputum cx; PCT is elevated at 20.61 - will trend; urine Legionella Ag is negative will check sputum AFB x 3 and Quantiferon TB test follow up HIV test will continue to monitor clinically follow up Cardiology work up for the bradycardia
--- NOTE | 2017-12-01 12:17 | CP.CCUPN ---
<Shelton,Enrique - Last Filed: 12/01/17 12:12> CCU Subjective - Physician Review Subjective (Free Text): 12/01/17 12:12 Patient was seen and examined at bedside this morning No acute events reported overnight Patient denies any fever, chest pain, sob, cough, abd pain, n/v/d/c, urinary discomfort Remainder of 12 system ROS is negative at this time CCU Objective - Vital Signs / Intake & Output Vital Signs (Last 4 hours): Vital Signs Pulse 12/01/17 09:47 38 L Intake and Output (Last 8hrs): Intake & Output 11/30/17 12/01/17 12/01/17 22:59 06:59 14:59 Intake Total 2530 3200 Output Total 400 550 Balance 2130 2650 Intake: IV 2050 2800 Left Forearm 2050 2800 Oral 480 400 Output: Urine 400 550 Urethral ([place]) 400 550 Other: # Bowel Movements 1 - Physical Exam Head: Positive for: Atraumatic, Normocephalic Pupils: Positive for: PERRL Extroacular Muscles: Positive for: EOMI Conjunctiva: Positive for: Normal Mouth: Positive for: Moist Mucous Membranes Neck: Positive for: Normal Range of Motion Respiratory/Chest: Positive for: Decreased Breath Sounds (RUL diminished relative to other lobes ), Other (No wheezing, ronchi, crackles appreciated ). Negative for: Clear to Auscultation, Respiratory Distress, Accessory Muscle Use Cardiovascular: Positive for: Regular Rate and Rhythm, Normal S1, S2, Tachycardic Abdomen: Positive for: Normal Bowel Sounds. Negative for: Tenderness, Distention, Peritoneal Signs Back: Positive for: Normal Inspection. Negative for: CVA Tenderness, Midline Tenderness, Paraspinal Tenderness Upper Extremity: Positive for: Normal Inspection. Negative for: Cyanosis, Edema Lower Extremity: Positive for: Normal Inspection. Negative for: Edema Neurological: Positive for: GCS=15, CN II-XII Intact, Speech Normal Skin: Positive for: Warm, Dry, Normal Color. Negative for: Rashes Psychiatric: Positive for: Alert, Oriented x 3, Normal Insight, Normal Concentration - Medications Active Medications: Active Medications Generic Name Dose Route Start Last Admin Trade Name Freq PRN Reason Stop Dose Admin Acetaminophen 650 mg 11/29/17 08:12 11/29/17 11:05 Tylenol 325mg Tab PO 650 mg Q6H PRN Administration Fever >100.4 F OR mild pain Albuterol Sulfate 2.5 mg 11/29/17 08:13 11/30/17 14:16 Albuterol 0.083% Inhal Bharati (2.5 Mg/3 Ml) Ud INH 2.5 mg [id number] PRN Administration Shortness of Breath Enoxaparin Sodium 40 mg 11/30/17 11:45 12/01/17 09:22 Lovenox SC 40 mg DAILY ANNA Administration Protocol Meropenem 50 mls @ 100 mls/hr 11/29/17 16:57 12/01/17 05:41 Merrem Iv 1 Gm Premix IVPB 12/04/17 06:29 100 mls/hr Q8 ANNA Administration Protocol Linezolid 600 mg in 300 mls @ 200 mls/hr 11/29/17 22:00 12/01/17 09:23 Zyvox 600mg/300ml D5w IVPB 12/06/17 22:01 200 mls/hr Q12 ANNA Administration Protocol Doxycycline Hyclate 100 mg/ 100 mls @ 100 mls/hr 12/01/17 22:00 Sodium Chloride IVPB Q12 ANNA Protocol Ketorolac Tromethamine 30 mg 11/29/17 19:56 12/01/17 11:29 Toradol IVP 30 mg Q6 PRN Administration Pain, severe (8-10) Lorazepam 1 mg 11/30/17 17:38 11/30/17 19:00 Ativan IVP 1 mg Q6H PRN Administration Nausea/Emesis/Anxiety Protocol Midodrine 10 mg 12/01/17 14:00 Proamatine PO TID [facility] Morphine Sulfate 1 mg 11/30/17 17:38 12/01/17 04:02 Morphine IVP 1 mg Q4H PRN Administration Pain, moderate (4-7) Ondansetron HCl 4 mg 11/30/17 09:17 11/30/17 13:00 Zofran Inj IVP 4 mg Q6H PRN Administration Nausea/Vomiting Pantoprazole Sodium 40 mg 12/01/17 06:00 12/01/17 05:41 Protonix Ec Tab PO 40 mg 0600 ANNA Administration - Patient Studies Lab Studies: Microbiology Studies 11/29/17 16:30 MRSA Culture (Admit) - Final Naris MRSA NOT DETECTED Lab Studies 12/01/17 12/01/17 12/01/17 Range/Units 10:30 05:50 05:50 WBC 33.3 H* (4.5-11.0) 10^3/ul RBC 2.99 L (3.5-6.1) 10^6/uL Hgb 8.4 L (12.0-16.0) g/dL Hct 25.8 L (36.0-48.0) % MCV 86.3 (80.0-105.0) fl MCH 28.1 (25.0-35.0) pg MCHC 32.6 (31.0-37.0) g/dl RDW 16.4 H (11.5-14.5) % Plt Count 260 (120.0-450.0) 10^3/uL MPV 12.6 H (7.0-11.0) fl Gran % 93.0 H (50.0-68.0) % Lymph % (Auto) 4.0 L (22.0-35.0) % Wayne % (Auto) 3.0 (1.0-6.0) % Eos % (Auto) 0.0 L (1.5-5.0) % Baso % (Auto) 0.0 (0.0-3.0) % Gran # 30.95 H (1.4-6.5) Lymph # (Auto) 1.3 (1.2-3.4) Wayne # (Auto) 1.0 H (0.1-0.6) Eos # (Auto) 0.0 (0.0-0.7) Baso # (Auto) 0.00 (0.0-2.0) K/mm3 Sodium 144 (132-148) mmol/L Potassium 4.3 (3.6-5.0) mmol/L Chloride 119 H (98-107) mmol/L Carbon Dioxide 18 L (21-33) mmol/L Anion Gap 11 (10-20) BUN 21 (7-21) mg/dL Creatinine 0.8 (0.7-1.2) mg/dl Est GFR ( Amer) > 60 Est GFR (Non-Af Amer) > 60 Random Glucose 114 H (70-110) mg/dL Hemoglobin A1c (4.2-6.5) % Calcium 8.5 (8.4-10.5) mg/dL Phosphorus 3.5 (2.5-4.5) mg/dL Magnesium 2.4 H (1.7-2.2) mg/dL Total Bilirubin 0.4 (0.2-1.3) mg/dL AST 22 (14-36) U/L ALT 20 (7-56) U/L Alkaline Phosphatase 105 (38-126) U/L Troponin I < 0.01 ng/mL Total Protein 5.9 (5.8-8.3) g/dL Albumin 2.8 L (3.0-4.8) g/dL Globulin 3.1 gm/dL Albumin/Globulin Ratio 0.9 L (1.1-1.8) Free T4 (0.78-2.19) ng/dL TSH 3rd Generation (0.46-4.68) mIU/mL 12/01/17 11/30/17 11/30/17 Range/Units 02:10 18:40 12:00 WBC (4.5-11.0) 10^3/ul RBC (3.5-6.1) 10^6/uL Hgb (12.0-16.0) g/dL Hct (36.0-48.0) % MCV (80.0-105.0) fl MCH (25.0-35.0) pg MCHC (31.0-37.0) g/dl RDW (11.5-14.5) % Plt Count (120.0-450.0) 10^3/uL MPV (7.0-11.0) fl Gran % (50.0-68.0) % Lymph % (Auto) (22.0-35.0) % Wayne % (Auto) (1.0-6.0) % Eos % (Auto) (1.5-5.0) % Baso % (Auto) (0.0-3.0) % Gran # (1.4-6.5) Lymph # (Auto) (1.2-3.4) Wayne # (Auto) (0.1-0.6) Eos # (Auto) (0.0-0.7) Baso # (Auto) (0.0-2.0) K/mm3 Sodium (132-148) mmol/L Potassium 3.9 (3.6-5.0) mmol/L Chloride (98-107) mmol/L Carbon Dioxide (21-33) mmol/L Anion Gap (10-20) BUN (7-21) mg/dL Creatinine (0.7-1.2) mg/dl Est GFR ( Amer) Est GFR (Non-Af Amer) Random Glucose (70-110) mg/dL Hemoglobin A1c (4.2-6.5) % Calcium 8.9 (8.4-10.5) mg/dL Phosphorus 3.3 (2.5-4.5) mg/dL Magnesium 2.3 H (1.7-2.2) mg/dL Total Bilirubin (0.2-1.3) mg/dL AST (14-36) U/L ALT (7-56) U/L Alkaline Phosphatase (38-126) U/L Troponin I < 0.01 ng/mL Total Protein (5.8-8.3) g/dL Albumin 2.8 L (3.0-4.8) g/dL Globulin gm/dL Albumin/Globulin Ratio (1.1-1.8) Free T4 1.37 (0.78-2.19) ng/dL TSH 3rd Generation 0.04 L (0.46-4.68) mIU/mL 11/30/17 Range/Units 12:00 WBC (4.5-11.0) 10^3/ul RBC (3.5-6.1) 10^6/uL Hgb (12.0-16.0) g/dL Hct (36.0-48.0) % MCV (80.0-105.0) fl MCH (25.0-35.0) pg MCHC (31.0-37.0) g/dl RDW (11.5-14.5) % Plt Count (120.0-450.0) 10^3/uL MPV (7.0-11.0) fl Gran % (50.0-68.0) % Lymph % (Auto) (22.0-35.0) % Wayne % (Auto) (1.0-6.0) % Eos % (Auto) (1.5-5.0) % Baso % (Auto) (0.0-3.0) % Gran # (1.4-6.5) Lymph # (Auto) (1.2-3.4) Wayne # (Auto) (0.1-0.6) Eos # (Auto) (0.0-0.7) Baso # (Auto) (0.0-2.0) K/mm3 Sodium (132-148) mmol/L Potassium (3.6-5.0) mmol/L Chloride (98-107) mmol/L Carbon Dioxide (21-33) mmol/L Anion Gap (10-20) BUN (7-21) mg/dL Creatinine (0.7-1.2) mg/dl Est GFR ( Amer) Est GFR (Non-Af Amer) Random Glucose (70-110) mg/dL Hemoglobin A1c 4.7 (4.2-6.5) % Calcium (8.4-10.5) mg/dL Phosphorus (2.5-4.5) mg/dL Magnesium (1.7-2.2) mg/dL Total Bilirubin (0.2-1.3) mg/dL AST (14-36) U/L ALT (7-56) U/L Alkaline Phosphatase (38-126) U/L Troponin I ng/mL Total Protein (5.8-8.3) g/dL Albumin (3.0-4.8) g/dL Globulin gm/dL Albumin/Globulin Ratio (1.1-1.8) Free T4 (0.78-2.19) ng/dL TSH 3rd Generation (0.46-4.68) mIU/mL Laboratory Results - last 24 hr 11/30/17 11/30/17 11/30/17 12:00 12:00 18:40 WBC RBC Hgb Hct MCV MCH MCHC RDW Plt Count MPV Gran % Lymph % (Auto) Wayne % (Auto) Eos % (Auto) Baso % (Auto) Gran # Lymph # (Auto) Wayne # (Auto) Eos # (Auto) Baso # (Auto) Sodium Potassium 3.9 Chloride Carbon Dioxide Anion Gap BUN Creatinine Est GFR ( Amer) Est GFR (Non-Af Amer) Random Glucose Hemoglobin A1c 4.7 Calcium 8.9 Phosphorus 3.3 Magnesium 2.3 H Total Bilirubin AST ALT Alkaline Phosphatase Troponin I Total Protein Albumin 2.8 L Globulin Albumin/Globulin Ratio Free T4 1.37 TSH 3rd Generation 0.04 L 12/01/17 12/01/17 12/01/17 02:10 05:50 05:50 WBC 33.3 H* RBC 2.99 L Hgb 8.4 L Hct 25.8 L MCV 86.3 MCH 28.1 MCHC 32.6 RDW 16.4 H Plt Count 260 MPV 12.6 H Gran % 93.0 H Lymph % (Auto) 4.0 L Wayne % (Auto) 3.0 Eos % (Auto) 0.0 L Baso % (Auto) 0.0 Gran # 30.95 H Lymph # (Auto) 1.3 Wayne # (Auto) 1.0 H Eos # (Auto) 0.0 Baso # (Auto) 0.00 Sodium 144 Potassium 4.3 Chloride 119 H Carbon Dioxide 18 L Anion Gap 11 BUN 21 Creatinine 0.8 Est GFR ( Amer) > 60 Est GFR (Non-Af Amer) > 60 Random Glucose 114 H Hemoglobin A1c Calcium 8.5 Phosphorus 3.5 Magnesium 2.4 H Total Bilirubin 0.4 AST 22 ALT 20 Alkaline Phosphatase 105 Troponin I < 0.01 Total Protein 5.9 Albumin 2.8 L Globulin 3.1 Albumin/Globulin Ratio 0.9 L Free T4 TSH 3rd Generation 12/01/17 10:30 WBC RBC Hgb Hct MCV MCH MCHC RDW Plt Count MPV Gran % Lymph % (Auto) Wayne % (Auto) Eos % (Auto) Baso % (Auto) Gran # Lymph # (Auto) Wayne # (Auto) Eos # (Auto) Baso # (Auto) Sodium Potassium Chloride Carbon Dioxide Anion Gap BUN Creatinine Est GFR ( Amer) Est GFR (Non-Af Amer) Random Glucose Hemoglobin A1c Calcium Phosphorus Magnesium Total Bilirubin AST ALT Alkaline Phosphatase Troponin I < 0.01 Total Protein Albumin Globulin Albumin/Globulin Ratio Free T4 TSH 3rd Generation EKG/Cardiology Studies: Cardiology / EKG Studies 11/30/17 17:38 ELECTROCARDIOGRAM Stat Comment: Reason For Exam: interminent bradycardia to 40's, assess intervals 12/01/17 00:02 EKG [ELECTROCARDIOGRAM] Urgent Comment: Reason For Exam: bradycardia 12/01/17 10:08 EKG [ELECTROCARDIOGRAM] Stat Comment: Reason For Exam: bradycardia, junctional rythym Review of Systems - Review of Systems All systems: reviewed and no additional remarkable complaints except Review of Systems: as per HPI Critical Care Progress Note - Nutrition Nutrition: Nutrition Category Date Time Status Heart Healthy Diet [DIET] Diets 11/30/17 Lunch Active Assessment/Plan - Assessment and Plan (Free Text) Assessment: 47F admitted to ICU for sepsis 2/2 PNA vs UTI Neuro: AAO3 No FND Reorient as necessary Cardio: Initially Hypotensive + Tachycardic Still having mild hypotension overnight Will DC fluid and DC stress dose steroids C/w Midodrine 10 Q8 Monitor pressures Maintain MAP >65 Newonset Junctional rhythm yesterday r/o ischemic causes; Troponin negative on adm; repeat negative today Repeat EKG w/ no new ischemic changes Pulm: Will obtain LE Duplex r/o DVT Satting well on room air CT Chest - RUL infiltrate; no definite evidence of PE R/o TB - AFB Smear - 2/3 sputum sample sent Sputum Cx Received; results pending Satting well on room air Reports her SOB is significantly improved Hx asthma - c/w duoneb PRN GI: Moving bowels well Tolerating diet well Nephro/: BUN/Cr - 21/0.8 Good urine output Strict IO Heme: Leukocytosis -infection vs stress dose steroid Will DC steroids today; Continue to monitor H/H Stable in setting of chronic anemia No s/s of HD compromise ID: Sepsis - PNA vs UTI Currently on Merem, Zyvox, Azithromycin Sputum Cx pending sens UCx- G+ Cocci, GNR ;GNR sensitivities reported; Will deescalate ABX therapy as per ID discretion Patient was seen, examined, and discussed w/ attending physician Dr. Eda Shelotn DO PGY1 - Internal [employer] - Pager [phone] - Date & Time Date: 12/01/17 Time: 13:06 <Tu Veras - Last Filed: 12/01/17 15:30> CCU Objective - Vital Signs / Intake & Output Intake and Output (Last 8hrs): Intake & Output 12/01/17 12/01/17 12/01/17 06:59 14:59 22:59 Intake Total 3200 Output Total 550 Balance 2650 Intake: IV 2800 Left Forearm 2800 Oral 400 Output: Urine 550 Urethral ([place]) 550 Other: # Bowel Movements 1 - Medications Active Medications: Active Medications Generic Name Dose Route Start Last Admin Trade Name Freq PRN Reason Stop Dose Admin Acetaminophen 650 mg 11/29/17 08:12 11/29/17 11:05 Tylenol 325mg Tab PO 650 mg Q6H PRN Administration Fever >100.4 F OR mild pain Albuterol Sulfate 2.5 mg 11/29/17 08:13 11/30/17 14:16 Albuterol 0.083% Inhal Bharati (2.5 Mg/3 Ml) Ud INH 2.5 mg [id number] PRN Administration Shortness of Breath Enoxaparin Sodium 40 mg 11/30/17 11:45 12/01/17 09:22 Lovenox SC 40 mg DAILY ANNA Administration Protocol Meropenem 50 mls @ 100 mls/hr 11/29/17 16:57 12/01/17 13:59 Merrem Iv 1 Gm Premix IVPB 12/04/17 06:29 100 mls/hr Q8 ANNA Administration Protocol Linezolid 600 mg in 300 mls @ 200 mls/hr 11/29/17 22:00 12/01/17 09:23 Zyvox 600mg/300ml D5w IVPB 12/06/17 22:01 200 mls/hr Q12 ANNA Administration Protocol Doxycycline Hyclate 100 mg/ 100 mls @ 100 mls/hr 12/01/17 22:00 Sodium Chloride IVPB Q12 ANNA Protocol Ketorolac Tromethamine 30 mg 11/29/17 19:56 12/01/17 11:29 Toradol IVP 30 mg Q6 PRN Administration Pain, severe (8-10) Lorazepam 1 mg 11/30/17 17:38 11/30/17 19:00 Ativan IVP 1 mg Q6H PRN Administration Nausea/Emesis/Anxiety Protocol Midodrine 10 mg 12/01/17 14:00 12/01/17 14:00 Proamatine PO 10 mg TID ANNA Administration Morphine Sulfate 1 mg 11/30/17 17:38 12/01/17 04:02 Morphine IVP 1 mg Q4H PRN Administration Pain, moderate (4-7) Ondansetron HCl 4 mg 11/30/17 09:17 11/30/17 13:00 Zofran Inj IVP 4 mg Q6H PRN Administration Nausea/Vomiting Pantoprazole Sodium 40 mg 12/01/17 06:00 12/01/17 05:41 Protonix Ec Tab PO 40 mg 0600 ANNA Administration - Patient Studies Lab Studies: Microbiology Studies 11/29/17 16:30 MRSA Culture (Admit) - Final Naris MRSA NOT DETECTED Lab Studies 12/01/17 12/01/17 12/01/17 Range/Units 10:30 05:50 05:50 WBC 33.3 H* (4.5-11.0) 10^3/ul RBC 2.99 L (3.5-6.1) 10^6/uL Hgb 8.4 L (12.0-16.0) g/dL Hct 25.8 L (36.0-48.0) % MCV 86.3 (80.0-105.0) fl MCH 28.1 (25.0-35.0) pg MCHC 32.6 (31.0-37.0) g/dl RDW 16.4 H (11.5-14.5) % Plt Count 260 (120.0-450.0) 10^3/uL MPV 12.6 H (7.0-11.0) fl Gran % 93.0 H (50.0-68.0) % Lymph % (Auto) 4.0 L (22.0-35.0) % Wayne % (Auto) 3.0 (1.0-6.0) % Eos % (Auto) 0.0 L (1.5-5.0) % Baso % (Auto) 0.0 (0.0-3.0) % Gran # 30.95 H (1.4-6.5) Lymph # (Auto) 1.3 (1.2-3.4) Wayne # (Auto) 1.0 H (0.1-0.6) Eos # (Auto) 0.0 (0.0-0.7) Baso # (Auto) 0.00 (0.0-2.0) K/mm3 Sodium 144 (132-148) mmol/L Potassium 4.3 (3.6-5.0) mmol/L Chloride 119 H (98-107) mmol/L Carbon Dioxide 18 L (21-33) mmol/L Anion Gap 11 (10-20) BUN 21 (7-21) mg/dL Creatinine 0.8 (0.7-1.2) mg/dl Est GFR ( Amer) > 60 Est GFR (Non-Af Amer) > 60 Random Glucose 114 H (70-110) mg/dL Hemoglobin A1c (4.2-6.5) % Calcium 8.5 (8.4-10.5) mg/dL Phosphorus 3.5 (2.5-4.5) mg/dL Magnesium 2.4 H (1.7-2.2) mg/dL Total Bilirubin 0.4 (0.2-1.3) mg/dL AST 22 (14-36) U/L ALT 20 (7-56) U/L Alkaline Phosphatase 105 (38-126) U/L Troponin I < 0.01 ng/mL Total Protein 5.9 (5.8-8.3) g/dL Albumin 2.8 L (3.0-4.8) g/dL Globulin 3.1 gm/dL Albumin/Globulin Ratio 0.9 L (1.1-1.8) 12/01/17 11/30/17 11/30/17 Range/Units 02:10 18:40 12:00 WBC (4.5-11.0) 10^3/ul RBC (3.5-6.1) 10^6/uL Hgb (12.0-16.0) g/dL Hct (36.0-48.0) % MCV (80.0-105.0) fl MCH (25.0-35.0) pg MCHC (31.0-37.0) g/dl RDW (11.5-14.5) % Plt Count (120.0-450.0) 10^3/uL MPV (7.0-11.0) fl Gran % (50.0-68.0) % Lymph % (Auto) (22.0-35.0) % Wayne % (Auto) (1.0-6.0) % Eos % (Auto) (1.5-5.0) % Baso % (Auto) (0.0-3.0) % Gran # (1.4-6.5) Lymph # (Auto) (1.2-3.4) Wayne # (Auto) (0.1-0.6) Eos # (Auto) (0.0-0.7) Baso # (Auto) (0.0-2.0) K/mm3 Sodium (132-148) mmol/L Potassium 3.9 (3.6-5.0) mmol/L Chloride (98-107) mmol/L Carbon Dioxide (21-33) mmol/L Anion Gap (10-20) BUN (7-21) mg/dL Creatinine (0.7-1.2) mg/dl Est GFR ( Amer) Est GFR (Non-Af Amer) Random Glucose (70-110) mg/dL Hemoglobin A1c 4.7 (4.2-6.5) % Calcium 8.9 (8.4-10.5) mg/dL Phosphorus 3.3 (2.5-4.5) mg/dL Magnesium 2.3 H (1.7-2.2) mg/dL Total Bilirubin (0.2-1.3) mg/dL AST (14-36) U/L ALT (7-56) U/L Alkaline Phosphatase (38-126) U/L Troponin I < 0.01 ng/mL Total Protein (5.8-8.3) g/dL Albumin 2.8 L (3.0-4.8) g/dL Globulin gm/dL Albumin/Globulin Ratio (1.1-1.8) Laboratory Results - last 24 hr 11/30/17 11/30/17 12/01/17 12:00 18:40 02:10 WBC RBC Hgb Hct MCV MCH MCHC RDW Plt Count MPV Gran % Lymph % (Auto) Wayne % (Auto) Eos % (Auto) Baso % (Auto) Gran # Lymph # (Auto) Wayne # (Auto) Eos # (Auto) Baso # (Auto) Sodium Potassium 3.9 Chloride Carbon Dioxide Anion Gap BUN Creatinine Est GFR ( Amer) Est GFR (Non-Af Amer) Random Glucose Hemoglobin A1c 4.7 Calcium 8.9 Phosphorus 3.3 Magnesium 2.3 H Total Bilirubin AST ALT Alkaline Phosphatase Troponin I < 0.01 Total Protein Albumin 2.8 L Globulin Albumin/Globulin Ratio 12/01/17 12/01/17 12/01/17 05:50 05:50 10:30 WBC 33.3 H* RBC 2.99 L Hgb 8.4 L Hct 25.8 L MCV 86.3 MCH 28.1 MCHC 32.6 RDW 16.4 H Plt Count 260 MPV 12.6 H Gran % 93.0 H Lymph % (Auto) 4.0 L Wayne % (Auto) 3.0 Eos % (Auto) 0.0 L Baso % (Auto) 0.0 Gran # 30.95 H Lymph # (Auto) 1.3 Wayne # (Auto) 1.0 H Eos # (Auto) 0.0 Baso # (Auto) 0.00 Sodium 144 Potassium 4.3 Chloride 119 H Carbon Dioxide 18 L Anion Gap 11 BUN 21 Creatinine 0.8 Est GFR ( Amer) > 60 Est GFR (Non-Af Amer) > 60 Random Glucose 114 H Hemoglobin A1c Calcium 8.5 Phosphorus 3.5 Magnesium 2.4 H Total Bilirubin 0.4 AST 22 ALT 20 Alkaline Phosphatase 105 Troponin I < 0.01 Total Protein 5.9 Albumin 2.8 L Globulin 3.1 Albumin/Globulin Ratio 0.9 L EKG/Cardiology Studies: Cardiology / EKG Studies 12/01/17 00:02 EKG [ELECTROCARDIOGRAM] Urgent Comment: Reason For Exam: bradycardia 12/01/17 10:08 EKG [ELECTROCARDIOGRAM] Stat Comment: Reason For Exam: bradycardia, junctional rythym Critical Care Progress Note - Nutrition Nutrition: Nutrition Category Date Time Status Heart Healthy Diet [DIET] Diets 11/30/17 Lunch Active Addendum Addendum: 12/01/17 15:30 ICU Attending Addendum: Patient seen and examined. Case reviewed on round with housestaff. Agree with resident note above with the following additions/exceptions: 47 F with a hx of RA, asthma, SBO (from adhesions), chronic STEW (on IV iron q- month) admitted to the ICU with severe sepsis. CT chest shows right consolidation PNA currently on merrep, zyvox and azithro. She was on abatacept (Orencia) recently but I do not see records showing she was taking it upon admission. ID had placed her on resp isolation to r/o TB. Awaiting 3 induced sputum smears. Cont empiric abx and Cont nebs PRN for her asthma. Currently on room air. Steroids can be stopped and stress dose has been given. She is no longer hypotensive. Stop IV Fluids since she has received more than 30cc/kg. Will cont midodrine for now as we monitor her BP off fluids and steroids. If she remains normotensive, will d/c midodrine as well. Urine growing GPC and GNR, await spec of bug. trend CBC daily as WBC very elevated. She is bradycardic and unclear why. Cardio consulted. No hx of BB use. F/u TNI as well. Cont diet PO OOB to chair hep SQ for DVT ppx Dispo: cont to monitor in ICU as we observe her BP off fluids and steoids. In addition, her bradycardia warrants close monitoring for now. Rest of care as noted above. Tu Veras MD [employer] Critical Care Time: 35mins
--- NOTE | 2017-12-01 13:41 | CP.PCM.CON ---
<Danny Del Toro - Last Filed: 12/01/17 13:15> History of Present Illness - History of Present Illness History of Present Illness: GI Consult Note for Dr. Andrew's Service - [place] PGY2 Reason for Consult: Mrs. 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 GI was consulted for N/V and sepsis in the setting of history of gastric bypass surgery. Patient reports that yesterday she began to feel nauseous without any inciting cause and that this was later led to one episode of NBNB emesis. Patient reports intermittent abdominal pain associated with this episode but notes that it was only during that episode. She denies any further episodes of vomiting. She denies any recent illness, sick contacts, changes in diet, fevers, chills, headache, C/D, hematemesis, melena, hematochezia, changes in urine output, or skin changes. Of note, CT Abdomen/Pelvis was done and showed no signs of SBO or acute processes but was noted to be a limited study. PMH: As stated above PSH: Cholecystectomy, B/L Wrist Fracture repairs with metal, gastric bypass ( 2001), intra-abdominal scar tissue lysis Family History: HTN (Mother/Father) Social History: Denies any tobacco, alcohol or illicit drug use Allergies: NKDA Home Medications: As per MAY PMD: Dr. Mcmanus Rheum: Dr. Hall ([facility] [place]) Review of Systems - Review of Systems All systems: reviewed and no additional remarkable complaints except Review of Systems: As stated in HPI, otherwise negative Past Patient History - Infectious Disease Hx of Infectious Diseases: None - Tetanus Immunizations Tetanus Immunization: Unknown - Past Social History Smoking Status: Never Smoked - CARDIAC Hx Pacemaker: No - PULMONARY Hx Respiratory Disorders: No - NEUROLOGICAL Hx Neurological Disorder: No - HEENT Hx HEENT Problems: No - RENAL Hx Chronic Kidney Disease: No - ENDOCRINE/METABOLIC Hx Endocrine Disorders: No - HEMATOLOGICAL/ONCOLOGICAL Hx Blood Transfusions: Yes Hx Blood Transfusion Reaction: No - INTEGUMENTARY Hx Dermatological Problems: No - MUSCULOSKELETAL/RHEUMATOLOGICAL Other/Comment: B/L WRIST FX - GASTROINTESTINAL Other/Comment: gastric bypass sx. cholesytectomy - GENITOURINARY/GYNECOLOGICAL Hx Genitourinary Disorders: No - PSYCHIATRIC Hx Emotional Abuse: No Hx Physical Abuse: No Hx Substance Use: No - SURGICAL HISTORY Hx Orthopedic Surgery: Yes (B/L WRIST METAL PLACEMENT) - ANESTHESIA Hx Anesthesia Reactions: No Hx Malignant Hyperthermia: No Meds Allergies/Adverse Reactions: Allergies Allergy/AdvReac Type Severity Reaction Status Date / Time No Known Allergies Allergy Verified 04/11/15 19:53 - Medications Medications: Current Medications Acetaminophen (Tylenol 325mg Tab) 650 mg PO Q6H PRN PRN Reason: Fever >100.4 F OR mild pain Last Admin: 11/29/17 11:05 Dose: 650 mg Albuterol Sulfate (Albuterol 0.083% Inhal Bharati (2.5 Mg/3 Ml) Ud) 2.5 mg INH [id number] PRN PRN Reason: Shortness of Breath Last Admin: 11/30/17 14:16 Dose: 2.5 mg Enoxaparin Sodium (Lovenox) 40 mg SC DAILY ANNA PRN Reason: Protocol Last Admin: 12/01/17 09:22 Dose: 40 mg Meropenem (Merrem Iv 1 Gm Premix) 50 mls @ 100 mls/hr IVPB Q8 ANNA PRN Reason: Protocol Stop: 12/04/17 06:29 Last Admin: 12/01/17 05:41 Dose: 100 mls/hr Linezolid (Zyvox 600mg/300ml D5w) 600 mg in 300 mls @ 200 mls/hr IVPB Q12 ANNA PRN Reason: Protocol Stop: 12/06/17 22:01 Last Admin: 12/01/17 09:23 Dose: 200 mls/hr Doxycycline Hyclate 100 mg/ (Sodium Chloride) 100 mls @ 100 mls/hr IVPB Q12 ANNA PRN Reason: Protocol Ketorolac Tromethamine (Toradol) 30 mg IVP Q6 PRN PRN Reason: Pain, severe (8-10) Last Admin: 12/01/17 11:29 Dose: 30 mg Lorazepam (Ativan) 1 mg IVP Q6H PRN; Protocol PRN Reason: Nausea/Emesis/Anxiety Last Admin: 11/30/17 19:00 Dose: 1 mg Midodrine (Proamatine) 10 mg PO TID [facility] Morphine Sulfate (Morphine) 1 mg IVP Q4H PRN PRN Reason: Pain, moderate (4-7) Last Admin: 12/01/17 04:02 Dose: 1 mg Ondansetron HCl (Zofran Inj) 4 mg IVP Q6H PRN PRN Reason: Nausea/Vomiting Last Admin: 11/30/17 13:00 Dose: 4 mg Pantoprazole Sodium (Protonix Ec Tab) 40 mg PO 0600 [facility] Last Admin: 12/01/17 05:41 Dose: 40 mg Physical Exam - Constitutional Appears: Non-toxic, No Acute Distress - Head Exam Head Exam: ATRAUMATIC - Eye Exam Eye Exam: EOMI - Neck Exam Neck exam: Positive for: Full Rom - Respiratory Exam Respiratory Exam: NORMAL BREATHING PATTERN. absent: Accessory Muscle Use, Respiratory Distress - Cardiovascular Exam Cardiovascular Exam: Bradycardia, REGULAR RHYTHM, +S1, +S2 - GI/Abdominal Exam GI & Abdominal Exam: Normal Bowel Sounds, Soft. absent: Bruit, Diminished Bowel Sounds, Distended, Firm, Guarding, Hernia, Hyperactive Bowel Sounds, Hypoactive Bowel Sounds, Mass, Organomegaly, Pulsatile Mass, Rebound, Rigid, Tenderness - Rectal Exam Rectal Exam: Deferred - Extremities Exam Extremities exam: Negative for: calf tenderness - Neurological Exam Neurological exam: Alert, Oriented x3 - Psychiatric Exam Psychiatric exam: Normal Affect, Normal Mood - Skin Skin Exam: Dry, Intact, Normal Color, Warm Results - Vital Signs Recent Vital Signs: Last Vital Signs Temp 98.2 F 12/01/17 08:00 Pulse 38 L 12/01/17 09:47 Resp 105 H 11/30/17 17:30 BP 119/60 11/30/17 17:00 Pulse Ox 68 L 11/30/17 17:30 - Labs Result Diagrams: 12/01/17 05:50 12/01/17 05:50 Labs: Laboratory Results - last 24 hr 11/30/17 11/30/17 12/01/17 12:00 18:40 02:10 WBC RBC Hgb Hct MCV MCH MCHC RDW Plt Count MPV Gran % Lymph % (Auto) Russell % (Auto) Eos % (Auto) Baso % (Auto) Gran # Lymph # (Auto) Russell # (Auto) Eos # (Auto) Baso # (Auto) Sodium Potassium 3.9 Chloride Carbon Dioxide Anion Gap BUN Creatinine Est GFR ( Amer) Est GFR (Non-Af Amer) Random Glucose Hemoglobin A1c 4.7 Calcium 8.9 Phosphorus 3.3 Magnesium 2.3 H Total Bilirubin AST ALT Alkaline Phosphatase Troponin I < 0.01 Total Protein Albumin 2.8 L Globulin Albumin/Globulin Ratio 12/01/17 12/01/17 12/01/17 05:50 05:50 10:30 WBC 33.3 H* RBC 2.99 L Hgb 8.4 L Hct 25.8 L MCV 86.3 MCH 28.1 MCHC 32.6 RDW 16.4 H Plt Count 260 MPV 12.6 H Gran % 93.0 H Lymph % (Auto) 4.0 L Russell % (Auto) 3.0 Eos % (Auto) 0.0 L Baso % (Auto) 0.0 Gran # 30.95 H Lymph # (Auto) 1.3 Russell # (Auto) 1.0 H Eos # (Auto) 0.0 Baso # (Auto) 0.00 Sodium 144 Potassium 4.3 Chloride 119 H Carbon Dioxide 18 L Anion Gap 11 BUN 21 Creatinine 0.8 Est GFR ( Amer) > 60 Est GFR (Non-Af Amer) > 60 Random Glucose 114 H Hemoglobin A1c Calcium 8.5 Phosphorus 3.5 Magnesium 2.4 H Total Bilirubin 0.4 AST 22 ALT 20 Alkaline Phosphatase 105 Troponin I < 0.01 Total Protein 5.9 Albumin 2.8 L Globulin 3.1 Albumin/Globulin Ratio 0.9 L Assessment & Plan - Assessment and Plan (Free Text) Assessment: 47 year old female with a past medical history significant for RA, asthma, 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 GI was consulted for N/V and sepsis in the setting of history of gastric bypass surgery. Plan: -CT Abdomen/Pelvis reviewed and discussed with patient -No further episodes of N/V -Vomiting not due to obstruction; Likely secondary to either medication side effect or ongoing sepsis -Continue Zofran -Heart Healthy Diet -Continue PPI daily -Noted to have history of chronic anemia; Will obtain occult blood and B12/ Folate -Will also obtain hepatitis panel as patient has had elevated LFT's during this admission Patient seen and case discussed with attending, Dr. Andrew. - Date & Time Date: 12/01/17 Time: 13:15 <Brittney Andrew V - Last Filed: 12/01/17 23:22> Meds - Medications Medications: Current Medications Acetaminophen (Tylenol 325mg Tab) 650 mg PO Q6H PRN PRN Reason: Fever >100.4 F OR mild pain Last Admin: 11/29/17 11:05 Dose: 650 mg Albuterol Sulfate (Albuterol 0.083% Inhal Bharati (2.5 Mg/3 Ml) Ud) 2.5 mg INH [id number] PRN PRN Reason: Shortness of Breath Last Admin: 11/30/17 14:16 Dose: 2.5 mg Enoxaparin Sodium (Lovenox) 40 mg SC DAILY ANNA PRN Reason: Protocol Last Admin: 12/01/17 09:22 Dose: 40 mg Meropenem (Merrem Iv 1 Gm Premix) 50 mls @ 100 mls/hr IVPB Q8 ANNA PRN Reason: Protocol Stop: 12/04/17 06:29 Last Admin: 12/01/17 21:16 Dose: 100 mls/hr Linezolid (Zyvox 600mg/300ml D5w) 600 mg in 300 mls @ 200 mls/hr IVPB Q12 ANNA PRN Reason: Protocol Stop: 12/06/17 22:01 Last Admin: 12/01/17 21:17 Dose: 200 mls/hr Doxycycline Hyclate 100 mg/ (Sodium Chloride) 100 mls @ 100 mls/hr IVPB Q12 ANNA PRN Reason: Protocol Last Admin: 12/01/17 21:18 Dose: 100 mls/hr Ketorolac Tromethamine (Toradol) 30 mg IVP Q6 PRN PRN Reason: Pain, severe (8-10) Last Admin: 12/01/17 20:39 Dose: 30 mg Lorazepam (Ativan) 1 mg IVP Q6H PRN; Protocol PRN Reason: Nausea/Emesis/Anxiety Last Admin: 11/30/17 19:00 Dose: 1 mg Midodrine (Proamatine) 10 mg PO TID ANNA Last Admin: 12/01/17 14:00 Dose: 10 mg Morphine Sulfate (Morphine) 1 mg IVP Q4H PRN PRN Reason: Pain, moderate (4-7) Last Admin: 12/01/17 04:02 Dose: 1 mg Ondansetron HCl (Zofran Inj) 4 mg IVP Q6H PRN PRN Reason: Nausea/Vomiting Last Admin: 11/30/17 13:00 Dose: 4 mg Pantoprazole Sodium (Protonix Ec Tab) 40 mg PO 0600 ANNA Last Admin: 12/01/17 05:41 Dose: 40 mg Results - Vital Signs Recent Vital Signs: Last Vital Signs Temp 98.1 F 12/01/17 16:00 Pulse 63 12/01/17 17:58 Resp 21 12/01/17 16:50 BP 132/70 12/01/17 16:01 Pulse Ox 98 12/01/17 16:50 - Labs Result Diagrams: 12/01/17 05:50 12/01/17 05:50 Labs: Laboratory Results - last 24 hr 11/30/17 12/01/17 12/01/17 12:00 02:10 05:50 WBC 33.3 H* RBC 2.99 L Hgb 8.4 L Hct 25.8 L MCV 86.3 MCH 28.1 MCHC 32.6 RDW 16.4 H Plt Count 260 MPV 12.6 H Gran % 93.0 H Lymph % (Auto) 4.0 L Russell % (Auto) 3.0 Eos % (Auto) 0.0 L Baso % (Auto) 0.0 Gran # 30.95 H Lymph # (Auto) 1.3 Russell # (Auto) 1.0 H Eos # (Auto) 0.0 Baso # (Auto) 0.00 Sodium Potassium Chloride Carbon Dioxide Anion Gap BUN Creatinine Est GFR ( Amer) Est GFR (Non-Af Amer) Random Glucose Hemoglobin A1c 4.7 Calcium Phosphorus Magnesium Total Bilirubin AST ALT Alkaline Phosphatase Troponin I < 0.01 Total Protein Albumin Globulin Albumin/Globulin Ratio Vitamin B12 Folate Hepatitis A IgM Ab Hep Bs Antigen Hep B Core IgM Ab Hepatitis C Antibody 12/01/17 12/01/17 12/01/17 05:50 10:30 10:48 WBC RBC Hgb Hct MCV MCH MCHC RDW Plt Count MPV Gran % Lymph % (Auto) Russell % (Auto) Eos % (Auto) Baso % (Auto) Gran # Lymph # (Auto) Russell # (Auto) Eos # (Auto) Baso # (Auto) Sodium 144 Potassium 4.3 Chloride 119 H Carbon Dioxide 18 L Anion Gap 11 BUN 21 Creatinine 0.8 Est GFR ( Amer) > 60 Est GFR (Non-Af Amer) > 60 Random Glucose 114 H Hemoglobin A1c Calcium 8.5 Phosphorus 3.5 Magnesium 2.4 H Total Bilirubin 0.4 AST 22 ALT 20 Alkaline Phosphatase 105 Troponin I < 0.01 Total Protein 5.9 Albumin 2.8 L Globulin 3.1 Albumin/Globulin Ratio 0.9 L Vitamin B12 Folate Hepatitis A IgM Ab Negative Hep Bs Antigen Negative Hep B Core IgM Ab Negative Hepatitis C Antibody Negative 12/01/17 10:48 WBC RBC Hgb Hct MCV MCH MCHC RDW Plt Count MPV Gran % Lymph % (Auto) Russell % (Auto) Eos % (Auto) Baso % (Auto) Gran # Lymph # (Auto) Russell # (Auto) Eos # (Auto) Baso # (Auto) Sodium Potassium Chloride Carbon Dioxide Anion Gap BUN Creatinine Est GFR ( Amer) Est GFR (Non-Af Amer) Random Glucose Hemoglobin A1c Calcium Phosphorus Magnesium Total Bilirubin AST ALT Alkaline Phosphatase Troponin I Total Protein Albumin Globulin Albumin/Globulin Ratio Vitamin B12 > 1000 H Folate 4.1 Hepatitis A IgM Ab Hep Bs Antigen Hep B Core IgM Ab Hepatitis C Antibody Attending/Attestation - Attestation I have personally seen and examined this patient.: Yes I have fully participated in the care of the patient.: Yes I have reviewed all pertinent clinical information: Yes Notes (Text): This is an addendum to GI consult report dictated by the Sole Leather Cutting Machine Operator.The patient was seen and evaluated earlier. Medical records, lab studies, imagings were reviewed. Last 24 hours events reviewed. Agreed with the above treatment plan as outlined in [employer] Cutting Machine Operator 's notes with the addition of the following Patient was on Orencia before for rheumatoid arthritis History of anemia Last EGD done in 2015 was reviewed Patient mentioned that she had a colonoscopy in [facility] Status post gastric bypass Admitted with a sepsis and pneumonia Elevated LFTs On admission now improved Would request a hepatitis profile Follow-up hemoglobin GI workup electively once her respiratory Status/sepsis improves 12/01/17 23:22
[2017-12-01 17:07] LABS: HEPATITIS B SURFACE AG Negative (NEGATIVE)
[2017-12-01 17:12] LABS: HEPATITIS A IGM NEGATIVE (NEGATIVE); HEPATITIS B CORE AB NEGATIVE (NEGATIVE)
[2017-12-01 17:24] LABS: HEPATITIS C ANTIBODY NEGATIVE (NEGATIVE)
[2017-12-01 17:45] LABS: FOLATE 4.1 ng/mL
--- NOTE | 2017-12-01 18:56 | US ---
HISTORY: Lower extremity venous ultrasound PHYSICIAN(S): Edwin Brooks MD. TECHNIQUE: Duplex sonography and color-flow Doppler with graded compression were used to evaluate the deep venous systems of both lower extremities. The exam is somewhat limited by edema FINDINGS: The visualized deep venous systems of both lower extremities are sonographically normal and compressible. Normal wave forms and augmentation are seen. There is no sonographic evidence for deep venous thrombosis in the visualized segments of both lower extremities. IMPRESSION: No sonographic evidence for deep venous thrombosis in the visualized segments of both lower extremities.
--- NOTE | 2017-12-01 21:07 | CON ---
DATE: 12/01/2017 CARDIOLOGY CONSULTATION REASON FOR CONSULTATION: Shortness of breath and sinus bradycardia. HISTORY OF PRESENT ILLNESS: The patient is morbidly obese 47-year-old female who has a history of rheumatoid arthritis, history of bronchial asthma, presented because of shortness of breath and cough. 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 The patient denies any hemoptysis, night fever, or night chills. The patient was on immune suppressive agent for rheumatoid arthritis, but she was not taking it on regular basis and was placed intermittently on steroids for her rheumatoid arthritis. The patient denies any history of DVT in the past. SOCIAL HISTORY: Nonsmoker. 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 PAST MEDICAL HISTORY: Gastric bypass surgery, bilateral wrist fracture with open reduction and internal fixation according to the emergency room documentation. MEDICATIONS: The patient is on albuterol inhaler every 6 hours, Ativan 1 mg intravenously every 6 hours, doxycycline 100 mg intravenously every 12 hours, Lovenox 40 mg subcutaneously daily, meropenem at 1 g intravenously every 8 hours, morphine sulfate 1 mg intravenously every 4 hours p.r.n., ProAmatine 10 mg p.o. t.i.d., Toradol 30 mg intravenously every 6 hours p.r.n. for severe pain, Protonix 40 mg p.o. once a day, Zofran 4 mg intravenously every 6 hours p.r.n. for nausea or vomiting, Zyvox 600 intravenously every 12 hours. PHYSICAL EXAMINATION: GENERAL: The patient is a morbidly obese middle-aged female who does not appear to be in acute distress. VITAL SIGNS: Blood pressure 119/60, the most recent heart rate is 38 beats per minute, temperature 98.2, respirations 16 per minute. HEENT: Head is normocephalic. NECK: No JVD. CHEST: Diminished breath sounds over both bases with scattered bilateral rhonchi. HEART: S1 and S2 regular. ABDOMEN: Soft. EXTREMITIES: Trace pitting edema. LABORATORY DATA: Today's hemoglobin and hematocrit 8.4 and 25.8, white count 33.3, and platelet count 260,000. SMA-7 today; sodium 144, potassium 4.3, chloride 119, CO2 of 18, glucose 114, BUN 21, creatinine 0.8. Five sets of troponins are negative. On admission, PT 15.5, PTT 28.1. Urine drug screen on admission was positive for opiates and benzodiazepines which are part for the patient's home medications. Initial EKG reveals sinus tachycardia at a rate of 128 with low voltage QRS complex and today's EKG revealed sinus bradycardia at a rate of 47. Chest x-ray revealed mild worsening of the infiltrate at the right and left bases and mid left lung zone as well, dense infiltrate unchanged in the right upper lobe. Abdomen and pelvis CT scan, lack of oral contrast limits evaluation for gastrointestinal tract, post gastric bypass operative changes are identifying with no bowel obstruction appreciated or gross local mesenteric reaction, no ascites or free air, prior cholecystectomy. Chest CT angio, dense right upper lobe infiltrate and limited right lower lobe infiltrate. It looks like there is typographical error regarding the pulmonary embolus comment. ASSESSMENT: 1. Right upper lobe pneumonia. 2. Sinus bradycardia with periods of junctional escape. 3. Consider underlying sepsis. 4. Anemia. 5. Rheumatoid arthritis. RECOMMENDATIONS: Continue current IV Zyvox 600 mg every 12 hours, IV meropenem at 1 g intravenously every 8 hours, subcutaneous Lovenox at 40 mg daily, IV doxycycline at 100 mg every 12 hours, ProAmatine 10 mg t.i.d. Obtain an echocardiogram. Atropine 0.5 mg IV push for heart rate below 30. Obtain venous Doppler of the lower extremities. The case was discussed with the medical team and the official report of the CT angio of the chest will be clarified with a radiologist. Andres Casanova MD
--- NOTE | 2017-12-02 05:45 | CP.PCM.PN ---
<Myranda Enrique - Last Filed: 12/02/17 18:57> Subjective - Date & Time of Evaluation Date of Evaluation: 12/02/17 Time of Evaluation: 07:00 - Subjective Subjective: PGY-1 Myranda Enrique D.O. Medicine progress note for Dr. Shelton's service: Patient was seen and examined this morning. No events reported over night. Patient is on isolation for TB work-up. She states she is feeling better and would like to be able to walk. Explained to patient concern with bradycardia, and she understood. Her abdominal pain is resolved. She still does not have an appetite but denies N/V. She is having diarrhea. Her R back pain persists and is radiating to her lower back. She denies SOB or productive cough. Objective - Vital Signs/Intake and Output Vital Signs (last 24 hours): Temp Pulse Resp BP Pulse Ox 98.1 F 44 L 25 H 122/66 100 12/02/17 04:00 12/02/17 04:20 12/02/17 04:20 12/02/17 04:01 12/02/17 04:20 Intake and Output: 12/01/17 12/02/17 18:59 06:59 Intake Total 1400 Output Total 200 Balance 1200 - Medications Medications: Current Medications Acetaminophen (Tylenol 325mg Tab) 650 mg PO Q6H PRN PRN Reason: Fever >100.4 F OR mild pain Last Admin: 11/29/17 11:05 Dose: 650 mg Albuterol Sulfate (Albuterol 0.083% Inhal Bharati (2.5 Mg/3 Ml) Ud) 2.5 mg INH [id number] PRN PRN Reason: Shortness of Breath Last Admin: 11/30/17 14:16 Dose: 2.5 mg Enoxaparin Sodium (Lovenox) 40 mg SC DAILY ANNA PRN Reason: Protocol Last Admin: 12/01/17 09:22 Dose: 40 mg Meropenem (Merrem Iv 1 Gm Premix) 50 mls @ 100 mls/hr IVPB Q8 ANNA PRN Reason: Protocol Stop: 12/04/17 06:29 Last Admin: 12/01/17 21:16 Dose: 100 mls/hr Linezolid (Zyvox 600mg/300ml D5w) 600 mg in 300 mls @ 200 mls/hr IVPB Q12 ANNA PRN Reason: Protocol Stop: 12/06/17 22:01 Last Admin: 12/01/17 21:17 Dose: 200 mls/hr Doxycycline Hyclate 100 mg/ (Sodium Chloride) 100 mls @ 100 mls/hr IVPB Q12 ANNA PRN Reason: Protocol Last Admin: 12/01/17 21:18 Dose: 100 mls/hr Ketorolac Tromethamine (Toradol) 30 mg IVP Q6 PRN PRN Reason: Pain, severe (8-10) Last Admin: 12/01/17 20:39 Dose: 30 mg Lorazepam (Ativan) 1 mg IVP Q6H PRN; Protocol PRN Reason: Nausea/Emesis/Anxiety Last Admin: 12/02/17 00:01 Dose: 1 mg Midodrine (Proamatine) 10 mg PO TID [facility] Last Admin: 12/01/17 14:00 Dose: 10 mg Morphine Sulfate (Morphine) 1 mg IVP Q4H PRN PRN Reason: Pain, moderate (4-7) Last Admin: 12/01/17 04:02 Dose: 1 mg Ondansetron HCl (Zofran Inj) 4 mg IVP Q6H PRN PRN Reason: Nausea/Vomiting Last Admin: 11/30/17 13:00 Dose: 4 mg Pantoprazole Sodium (Protonix Ec Tab) 40 mg PO 0600 [facility] Last Admin: 12/01/17 05:41 Dose: 40 mg - Labs Labs: 12/01/17 05:50 12/01/17 05:50 PT 15.5 SECONDS (9.4-12.5) H 11/30/17 05:00 INR 1.34 11/30/17 05:00 APTT 28.1 Seconds (25.1-36.5) 11/30/17 05:00 - Constitutional Appears: Non-toxic, No Acute Distress - Head Exam Head Exam: ATRAUMATIC, NORMAL INSPECTION, NORMOCEPHALIC - Eye Exam Eye Exam: EOMI, Normal appearance, PERRL - ENT Exam ENT Exam: Mucous Membranes Moist, Normal Exam - Neck Exam Neck Exam: Normal Inspection - Respiratory Exam Respiratory Exam: Decreased Breath Sounds, Rhonchi (RUL), NORMAL BREATHING PATTERN - Cardiovascular Exam Cardiovascular Exam: REGULAR RHYTHM, +S1, +S2 - GI/Abdominal Exam GI & Abdominal Exam: Soft, Hypoactive Bowel Sounds. absent: Tenderness - Rectal Exam Rectal Exam: Deferred - Extremities Exam Extremities Exam: Normal Inspection. absent: Pedal Edema - Back Exam Back Exam: paraspinal tenderness - Neurological Exam Neurological Exam: Alert, Awake, CN II-XII Intact, Oriented x3, Reflexes Normal. absent: Motor Sensory Deficit Neuro motor strength exam: Left Upper Extremity: 5, Right Upper Extremity: 5, Left Lower Extremity: 5, Right Lower Extremity: 5 - Psychiatric Exam Psychiatric exam: Normal Affect, Normal Mood - Skin Skin Exam: Dry, Intact, Normal Color, Warm Assessment and Plan - Assessment and Plan (Free Text) Assessment: Patient is a 47 yo AA female with a history of RA on monoclonal Ab, asthma/COPD , gastric bypass with subsequent SBO, and iron deficiency anemia who presented with SOB, R chest wall pain, significant fatigue, and subjective fevers and chills. She was found to have significant leukocytosis. Imaging demonstrated RUL , RLL infiltrates and d/l atelectasis. UA is consistent with UTI. Patient was hypotensive with weak response to IVF, and was transferred to the ICU. She has not required pressors thus far. Patient was placed on isolation for concern of opportunistic infections 2/2 immunosuppression from monoclonal Ab use. Plan to transfer to telemetry. Plan: Severe sepsis 2/2 PNA and UTI, improving- h/o asthma/COPD - CT chest: Dense right upper lobe infiltrate with patchy infiltrate right lower lobe, borderline at the left lower lobe - CTA chest: No evidence of PE - CXR 11/30: Mild interval worsening of infiltrates at the right and left bases and mid left lung zone as well. Dense infiltrate unchanged right upper lobe. - Isolation precautions (TB) - Afebrile- Tmax 100 on 11/29 - Tylenol 650 mg PO q6hrs PRN fever - Lactate 3.3 - Procalcintonin 20.61 - Leukocytosis improving (WBC 30s->17.5)- steroids discontinued - SBP 120s, maintain MAP >65 - Minodrine 10 mg PO q8hrs- consider taper/stopping - IVF discontinued - Quantiferon indeterminate - Blood Cx negative >48 hrs - Urine Cx- Strep anginosus (>100,000) sensitive to vanco and PCN, GNR (<10, 000), yeast - Sputum Cx, AFB x3- 1 negative thus far - Urine L. pneumophila Ag negative - HIV nonreactive - Meropenem 1 g IV q8hrs (started 11/29) - Linezolid 600 mg IV q12hrs (started 11/29) - Doxycycline 100 mg IV q12hrs (started 12/01) - Albuterol 2.5 mg INH q6hrs PRN SOB - Toradol 30 mg IV q6hrs PRN pain - Morphine 1 mg q4hrs PRN pain - LE Dopplers: no DVT - ICU consulted (Mark) - ID consulted (Damián)- suspect CAP but need to r/o TB, trend procal, changed Vancomycin to Zyvox due to reaction and changed Zosyn to Merrem because of persistent hypotension Bradycardia (HR 30s-40s) - EKG 12/01: marked sinus bradycardia, low voltage QRS - F/u echo - F/u lupus panel - Cardiology consulted (Edilberto)- atropine 0.5 mg IV if HR <30 H/o SBO s/p gastric bypass in 2001- N/V/abd pain presently resolved - CT A/P: Post gastric by pass operative changes are identified with no bowel obstruction appreciable or gross local bowel mesenteric reaction. No ascites or free air. Prior cholecystectomy. - Zofran 4 mg IV q6hrs PRN - Hepatitis panel negative - GI consulted (Olrrie)- suspect N/V 2/2 sepsis vs medication intolerance Iron deficiency anemia- current Hgb 8.4, no signs of active bleed - Iron low (31), TIBC wnl (325), % sat low (10), ferritin wnl (106) - B12 wnl (>1000), folate wnl (4.1) - FOBT positive - Peripheral smear- RBC microcytic hypochromic, few teardrop, occasional target cells, no schistocytes - Maintain Hgb >7, transfusion if necessary Low TSH (0.04)- repeat after discharge - Free T4 wnl (5.6) - T3 low (0.33) Hypokalemia, resolved - Repleted - Monitor daily Rheumatoid Arthritis- currently asymptomatic - Hold anti-TNF alpha - Work-up for opportunistic infections IVF: not indicated GI ppx: Protonix 40 mg PO daily VTE ppx: Lovenox 40 mg SC, SCDs Diet: heart healthy Code status: full code Case was discussed with attending, Dr. Shelton. <Arelis Shelton R - Last Filed: 12/03/17 17:10> Objective - Vital Signs/Intake and Output Vital Signs (last 24 hours): Temp Pulse Resp BP Pulse Ox 98.6 F 50 L 18 122/41 L 100 12/02/17 18:00 12/03/17 11:50 12/03/17 11:50 12/03/17 11:00 12/02/17 18:00 - Medications Medications: Current Medications Acetaminophen (Tylenol 325mg Tab) 650 mg PO Q6H PRN PRN Reason: Fever >100.4 F OR mild pain Last Admin: 12/02/17 10:51 Dose: 650 mg Albuterol Sulfate (Albuterol 0.083% Inhal Bharati (2.5 Mg/3 Ml) Ud) 2.5 mg INH [id number] PRN PRN Reason: Shortness of Breath Last Admin: 12/02/17 16:20 Dose: 2.5 mg Enoxaparin Sodium (Lovenox) 40 mg SC DAILY ANNA PRN Reason: Protocol Last Admin: 12/03/17 09:39 Dose: 40 mg Meropenem (Merrem Iv 1 Gm Premix) 50 mls @ 100 mls/hr IVPB Q8 ANNA PRN Reason: Protocol Stop: 12/06/17 16:58 Last Admin: 12/03/17 14:46 Dose: 100 mls/hr Linezolid (Zyvox 600mg/300ml D5w) 600 mg in 300 mls @ 200 mls/hr IVPB Q12 ANNA PRN Reason: Protocol Stop: 12/06/17 22:01 Last Admin: 12/03/17 09:40 Dose: 200 mls/hr Doxycycline Hyclate 100 mg/ (Sodium Chloride) 100 mls @ 100 mls/hr IVPB Q12 ANNA PRN Reason: Protocol Last Admin: 12/03/17 09:01 Dose: 100 mls/hr Lactobacillus Acidophilus (Bacid Acidophilus) 1 cap PO BID ANNA Last Admin: 12/03/17 09:40 Dose: 1 cap Midodrine (Proamatine) 5 mg PO TID ANNA Last Admin: 12/03/17 14:46 Dose: 5 mg Morphine Sulfate (Morphine) 1 mg IVP Q4H PRN PRN Reason: Pain, moderate (4-7) Last Admin: 12/03/17 16:47 Dose: 1 mg Ondansetron HCl (Zofran Inj) 4 mg IVP Q6H PRN PRN Reason: Nausea/Vomiting Last Admin: 11/30/17 13:00 Dose: 4 mg Pantoprazole Sodium (Protonix Ec Tab) 40 mg PO 0600 ANNA Last Admin: 12/03/17 05:57 Dose: 40 mg - Labs Labs: 12/03/17 05:30 12/03/17 05:30 PT 15.5 SECONDS (9.4-12.5) H 11/30/17 05:00 INR 1.34 11/30/17 05:00 APTT 28.1 Seconds (25.1-36.5) 11/30/17 05:00 Attending/Attestation - Attestation I have personally seen and examined this patient.: Yes I have fully participated in the care of the patient.: Yes I have reviewed all pertinent clinical information, including history, physical exam and plan: Yes Notes (Text): Patient seen and examined by me at 09:35AM with resident 12/02/17. Case including HPI, physical exam, and assessment and plan discussed with resident. Agree with above with following additions/corrections. 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 Patient states that she is feeling better today. Nausea has improved. Appetite has also improved. Abdominal "soreness" improved. No fevers or chills. No headaches or dizziness. No chest pain or shortness of breath. No dysuria. Patient is having bowel movements. Patient is asking to get out of bed and ambulate. Physical exam: General: Awake and alert lying in bed in no acute distress HEENT: Normocephalic atraumatic. Extraocular muscles intact. Pupils equal reactive. No scleral icterus. Oropharynx is pink and moist. No pharyngeal erythema or exudate appreciated. Neck is supple. Cardiovascular: Normal rhythm. Normal S1, S2. No murmurs, rubs, or gallops appreciated Pulmonary: Normal respiratory effort. No rhonchi, rales or wheezing appreciated. Gastrointestinal: Soft, nondistended. Improved tenderness lower abdomen and suprapubic area. Positive bowel sounds all 4 quadrants, no guarding. Musculoskeletal: Moves all extremities, no calf tenderness, no edema appreciated. Central nervous system: AAO x 3. CN 2-12 grossly intact. Dermatologic: Skin warm and dry. 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 1. Severe sepsis. Resolving. Secondary to UTI and pneumonia. ID following, recommendations appreciated. Urine culture positive for streptococcus anginosus. Blood culture with no growth. Rule out TB. Quantiferon and sputum for AFB pending. Sputum culture pending. Continue Zyvox, doxycycline, and meropenem. Lactic acidosis resolved. Procalcitonin was 20.61. Leukocytosis improving. Patient remains afebrile. Chest CT per radiologist shows dense right upper lobe infiltrate with patchy infiltrate right lower lobe, boderline at left lower lobe. CTA chest per radiologist showed no pulmonary embolus, artifacts obscure long bases however; dense right upper lobe infiltrate and limited right lower lobe infiltrate reiterated and limited left lower lobe atelectasis reiterated. Chest xray 11/30/17 per radiologist showed mild interval worsening of infiltrates at the right and left bases and mid left lung zone as well, dense infiltrate unchanged right upper lobe. 2. Abdominal pain. Nausea and vomiting. Resolving. Continue Zofran. GI following , recommendations appreciated. CT abd/pelvis per radiologist showed post gastric bypass operative changes are identified with no bowel obstruction appreciable or gross local bowel mesenteric reaction; no ascites or free air; prior cholecystectomy. Hepatitis panel negative. 3. Bradycardia. Unclear etiology. Cardiology following, recommendations appreciated. 2D echo pending. Lupus panel pending. Continue to monitor on telemetry. 4. Iron deficiency anemia. Patient get IV iron infusions as an outpatient. Continue to monitor CBC. Stool for occult blood pending. 5. Abnormal TSH. Patient will need repeat thyroid studies. Free T4 within normal limits. 6. Hypokalemia. Resolved. Continue to monitor. 7. Rheumatoid Arthritis. Home medications held for now secondary to acute infection. 8. GI/DVT prophylaxis. Protonix and Lovenox. Case was discussed in detail with the patient regarding current diagnosis and treatment plan.
[2017-12-02] MEDS: Pantoprazole 40 mg EC Tab PO SCH (06:28)
[2017-12-02] MEDS: Meropenem IV 1 gm in NS 50 ML IVPB SCH ×3 (06:29→21:19)
[2017-12-02 07:12] LABS: EOS % 0.1 % (1.5-5.0); GRAN # 13.78 (1.4-6.5); GRAN % 78.5 % (50.0-68.0); HEMOGLOBIN 8.3 g/dL (12.0-16.0); LYMPH # 2.2 (1.2-3.4); LYMPH % 12.3 % (22.0-35.0); MEAN CORPUSCULAR HEMOGLOBIN 28.3 pg (25.0-35.0); MEAN CORPUSCULAR HGB CONC 32.9 g/dl (31.0-37.0); MEAN PLATELET VOLUME 12.9 fl (7.0-11.0); MONO # 1.6 (0.1-0.6); MONO % 9.1 % (1.0-6.0); RBC 2.93 10^6/uL (3.5-6.1); RED CELL DISTRIBUTION WIDTH 16.5 % (11.5-14.5); WHITE BLOOD COUNT 17.5 10^3/ul (4.5-11.0)
[2017-12-02 07:13] LABS: ALB/GLOB RATIO 0.9 (1.1-1.8); ALBUMIN 2.7 g/dL (3.0-4.8); ALT/SGPT 15 U/L (7-56); AST/SGOT 16 U/L (14-36); BLOOD UREA NITROGEN 20 mg/dL (7-21); CALCIUM 8.3 mg/dL (8.4-10.5); GFR NON-AFRICAN AMERICAN > 60
--- NOTE | 2017-12-02 09:05 | CP.PCM.PN ---
<Danny Del Toro - Last Filed: 12/02/17 10:50> Subjective - Date & Time of Evaluation Date of Evaluation: 12/02/17 Time of Evaluation: 09:04 - Subjective Subjective: GI Progress Note for Dr. Andrew's Service- Bryan, PGY2 Patient seen and assessed at bedside in ICU. No acute events overnight noted. Patient reports that her N/V from before has been resolved. She does note that she had two BM's overnight that were normal in color but looser in consistency than her normal BM but that it isn't diarrhea. Patient otherwise currently denies any fevers, chills, chest pain, SOB, abdominal pain, N/V/D/C, changes in urine output or any skin changes. Objective - Vital Signs/Intake and Output Vital Signs (last 24 hours): Temp Pulse Resp BP Pulse Ox 98.1 F 48 L 25 H 122/66 100 12/02/17 04:00 12/02/17 06:00 12/02/17 04:20 12/02/17 04:01 12/02/17 04:20 Intake and Output: 12/02/17 12/02/17 06:59 18:59 Intake Total 700 Output Total 700 Balance 0 - Medications Medications: Current Medications Acetaminophen (Tylenol 325mg Tab) 650 mg PO Q6H PRN PRN Reason: Fever >100.4 F OR mild pain Last Admin: 11/29/17 11:05 Dose: 650 mg Albuterol Sulfate (Albuterol 0.083% Inhal Bharati (2.5 Mg/3 Ml) Ud) 2.5 mg INH [id number] PRN PRN Reason: Shortness of Breath Last Admin: 11/30/17 14:16 Dose: 2.5 mg Enoxaparin Sodium (Lovenox) 40 mg SC DAILY ANNA PRN Reason: Protocol Last Admin: 12/01/17 09:22 Dose: 40 mg Meropenem (Merrem Iv 1 Gm Premix) 50 mls @ 100 mls/hr IVPB Q8 ANNA PRN Reason: Protocol Stop: 12/04/17 06:29 Last Admin: 12/02/17 06:29 Dose: 100 mls/hr Linezolid (Zyvox 600mg/300ml D5w) 600 mg in 300 mls @ 200 mls/hr IVPB Q12 ANNA PRN Reason: Protocol Stop: 12/06/17 22:01 Last Admin: 12/01/17 21:17 Dose: 200 mls/hr Doxycycline Hyclate 100 mg/ (Sodium Chloride) 100 mls @ 100 mls/hr IVPB Q12 ANNA PRN Reason: Protocol Last Admin: 12/01/17 21:18 Dose: 100 mls/hr Ketorolac Tromethamine (Toradol) 30 mg IVP Q6 PRN PRN Reason: Pain, severe (8-10) Last Admin: 12/02/17 08:32 Dose: 30 mg Lorazepam (Ativan) 1 mg IVP Q6H PRN; Protocol PRN Reason: Nausea/Emesis/Anxiety Last Admin: 12/02/17 00:01 Dose: 1 mg Midodrine (Proamatine) 10 mg PO TID [facility] Last Admin: 12/01/17 19:00 Dose: 10 mg Morphine Sulfate (Morphine) 1 mg IVP Q4H PRN PRN Reason: Pain, moderate (4-7) Last Admin: 12/01/17 04:02 Dose: 1 mg Ondansetron HCl (Zofran Inj) 4 mg IVP Q6H PRN PRN Reason: Nausea/Vomiting Last Admin: 11/30/17 13:00 Dose: 4 mg Pantoprazole Sodium (Protonix Ec Tab) 40 mg PO 0600 [facility] Last Admin: 12/02/17 06:28 Dose: 40 mg - Labs Labs: 12/02/17 06:10 12/02/17 06:10 PT 15.5 SECONDS (9.4-12.5) H 11/30/17 05:00 INR 1.34 11/30/17 05:00 APTT 28.1 Seconds (25.1-36.5) 11/30/17 05:00 - Constitutional Appears: Non-toxic, No Acute Distress - Head Exam Head Exam: ATRAUMATIC, NORMOCEPHALIC - Eye Exam Eye Exam: EOMI - ENT Exam ENT Exam: Mucous Membranes Moist - Neck Exam Neck Exam: Full ROM - Respiratory Exam Respiratory Exam: NORMAL BREATHING PATTERN. absent: Accessory Muscle Use, Respiratory Distress - Cardiovascular Exam Cardiovascular Exam: REGULAR RHYTHM, RRR, +S1, +S2 - GI/Abdominal Exam GI & Abdominal Exam: Soft, Normal Bowel Sounds. absent: Distended, Firm, Guarding, Rigid, Tenderness, Diminished Bowel Sounds, Hernia, Hyperactive Bowel Sounds, Hypoactive Bowel Sounds, Mass, Organomegaly, Pulsatile Mass, Rebound - Rectal Exam Rectal Exam: Deferred - Extremities Exam Extremities Exam: absent: Calf Tenderness, Joint Swelling, Pedal Edema, Tenderness - Neurological Exam Neurological Exam: Alert, Awake, Oriented x3 - Psychiatric Exam Psychiatric exam: Normal Affect, Normal Mood - Skin Skin Exam: Dry, Intact, Normal Color, Warm Assessment and Plan - Assessment and Plan (Free Text) Assessment: 47 year old female with a past medical history significant for RA, asthma, 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 GI was consulted for N/V and sepsis in the setting of history of gastric bypass surgery. Plan: -CT Abdomen/Pelvis reviewed and discussed with patient -Continue Zofran PRN for N/V -Heart Healthy Diet -Continue PPI daily -Noted to have history of chronic anemia; B12/Folate within normal limits; FOBT pending -Continue to monitor with serial CBC's -LFT's within normal limits; Hepatitis panel negative -Antibiotics per ID, all recommendations appreciated Patient seen and case discussed with attending, Dr. Andrew. <Brittney Andrew V - Last Filed: 12/03/17 00:32> Objective - Vital Signs/Intake and Output Vital Signs (last 24 hours): Temp Pulse Resp BP Pulse Ox 98.6 F 40 L 20 108/85 100 12/02/17 18:00 12/02/17 18:00 12/02/17 18:00 12/02/17 18:00 12/02/17 18:00 Intake and Output: 12/02/17 12/03/17 18:59 06:59 Intake Total 850 Output Total 550 Balance 300 - Medications Medications: Current Medications Acetaminophen (Tylenol 325mg Tab) 650 mg PO Q6H PRN PRN Reason: Fever >100.4 F OR mild pain Last Admin: 12/02/17 10:51 Dose: 650 mg Albuterol Sulfate (Albuterol 0.083% Inhal Bharati (2.5 Mg/3 Ml) Ud) 2.5 mg INH [id number] PRN PRN Reason: Shortness of Breath Last Admin: 12/02/17 16:20 Dose: 2.5 mg Enoxaparin Sodium (Lovenox) 40 mg SC DAILY ANNA PRN Reason: Protocol Last Admin: 12/02/17 10:53 Dose: 40 mg Meropenem (Merrem Iv 1 Gm Premix) 50 mls @ 100 mls/hr IVPB Q8 ANNA PRN Reason: Protocol Stop: 12/04/17 06:29 Last Admin: 12/02/17 21:19 Dose: 100 mls/hr Linezolid (Zyvox 600mg/300ml D5w) 600 mg in 300 mls @ 200 mls/hr IVPB Q12 ANNA PRN Reason: Protocol Stop: 12/06/17 22:01 Last Admin: 12/02/17 21:19 Dose: 200 mls/hr Doxycycline Hyclate 100 mg/ (Sodium Chloride) 100 mls @ 100 mls/hr IVPB Q12 ANNA PRN Reason: Protocol Last Admin: 12/02/17 21:43 Dose: 100 mls/hr Lactobacillus Acidophilus (Bacid Acidophilus) 1 cap PO BID [facility] Last Admin: 12/02/17 18:14 Dose: 1 cap Midodrine (Proamatine) 5 mg PO TID [facility] Morphine Sulfate (Morphine) 1 mg IVP Q4H PRN PRN Reason: Pain, moderate (4-7) Last Admin: 12/02/17 23:58 Dose: 1 mg Ondansetron HCl (Zofran Inj) 4 mg IVP Q6H PRN PRN Reason: Nausea/Vomiting Last Admin: 11/30/17 13:00 Dose: 4 mg Pantoprazole Sodium (Protonix Ec Tab) 40 mg PO 0600 [facility] Last Admin: 12/02/17 06:28 Dose: 40 mg - Labs Labs: 12/02/17 06:10 12/02/17 06:10 PT 15.5 SECONDS (9.4-12.5) H 11/30/17 05:00 INR 1.34 11/30/17 05:00 APTT 28.1 Seconds (25.1-36.5) 11/30/17 05:00 Attending/Attestation - Attestation I have personally seen and examined this patient.: Yes I have fully participated in the care of the patient.: Yes I have reviewed all pertinent clinical information, including history, physical exam and plan: Yes Notes (Text): This is an addendum to GI followup report dictated by the Home Organizer. The patient was seen and evaluated earlier. Medical records, lab studies, imagings were reviewed. Last 24 hours events reviewed. Agreed with the above treatment plan as outlined in Home Organizer 's notes with the addition of the following Status post a gastric bypass Chronic anemia Iron deficiency Status [facility]opy[facility]. [facility]. Will review the report Follow-up hemoglobin GI workup electively, timing based on clinical course 12/03/17 00:29
--- NOTE | 2017-12-02 09:53 | CARD ---
APPROVED REPORT Date of service: 12/01/2017 EKG Measurement Heart [id number] CT [id number] <Conclusion> Marked sinus bradycardia with short CT Poor R Progression V1-V3.
[2017-12-02] MEDS: Linezolid 600 mg in D5W 300 ml 600 MG/300 ML BAG IVPB SCH ×2 (10:50→21:19)
[2017-12-02] MEDS: Lactobacillus Acidophilus 500 MU Cap PO SCH ×2 (10:50→18:14)
[2017-12-02] MEDS: Enoxaparin 40 mg Syringe SC SCH (10:53)
--- NOTE | 2017-12-02 11:24 | CP.CCUPN ---
<Enrique Shelton - Last Filed: 12/02/17 11:21> CCU Subjective - Physician Review Subjective (Free Text): Enrique Shelton DO PGY1 - Internal medicine [facility] - ICU Progress Note Patient was seen and examined at bedside this AM. Overnight patient complaining of anxiety attack; given xanax. This AM no complaints voiced; reports improvement in SOB/ Cough Remainder of 12 system ROS negative. CCU Objective - Vital Signs / Intake & Output Intake and Output (Last 8hrs): Intake & Output 12/01/17 12/02/17 12/02/17 22:59 06:59 14:59 Intake Total 1400 700 Output Total 200 700 Balance 1200 0 Intake: IV 800 400 Left Forearm 800 400 Oral 600 300 Output: Urine 200 700 Urethral ([place]) 200 700 Other: # Bowel Movements 0 2 - Physical Exam Head: Positive for: Atraumatic, Normocephalic Pupils: Positive for: PERRL Extroacular Muscles: Positive for: EOMI Conjunctiva: Positive for: Normal Mouth: Positive for: Moist Mucous Membranes Neck: Positive for: Normal Range of Motion Respiratory/Chest: Positive for: Decreased Breath Sounds (RUL diminished relative to other lobes ), Other (No wheezing, ronchi, crackles appreciated ). Negative for: Clear to Auscultation, Respiratory Distress, Accessory Muscle Use Cardiovascular: Positive for: Regular Rate and Rhythm, Normal S1, S2, Tachycardic Abdomen: Positive for: Normal Bowel Sounds. Negative for: Tenderness, Distention, Peritoneal Signs Back: Positive for: Normal Inspection. Negative for: CVA Tenderness, Midline Tenderness, Paraspinal Tenderness Upper Extremity: Positive for: Normal Inspection. Negative for: Cyanosis, Edema Lower Extremity: Positive for: Normal Inspection. Negative for: Edema Neurological: Positive for: GCS=15, CN II-XII Intact, Speech Normal Skin: Positive for: Warm, Dry, Normal Color. Negative for: Rashes Psychiatric: Positive for: Alert, Oriented x 3, Normal Insight, Normal Concentration - Medications Active Medications: Active Medications Generic Name Dose Route Start Last Admin Trade Name Freq PRN Reason Stop Dose Admin Acetaminophen 650 mg 11/29/17 08:12 12/02/17 10:51 Tylenol 325mg Tab PO 650 mg Q6H PRN Administration Fever >100.4 F OR mild pain Albuterol Sulfate 2.5 mg 11/29/17 08:13 11/30/17 14:16 Albuterol 0.083% Inhal Bharati (2.5 Mg/3 Ml) Ud INH 2.5 mg [id number] PRN Administration Shortness of Breath Enoxaparin Sodium 40 mg 11/30/17 11:45 12/02/17 10:53 Lovenox SC 40 mg DAILY ANNA Administration Protocol Meropenem 50 mls @ 100 mls/hr 11/29/17 16:57 12/02/17 06:29 Merrem Iv 1 Gm Premix IVPB 12/04/17 06:29 100 mls/hr Q8 ANNA Administration Protocol Linezolid 600 mg in 300 mls @ 200 mls/hr 11/29/17 22:00 12/02/17 10:50 Zyvox 600mg/300ml D5w IVPB 12/06/17 22:01 200 mls/hr Q12 ANNA Administration Protocol Doxycycline Hyclate 100 mg/ 100 mls @ 100 mls/hr 12/01/17 22:00 12/02/17 10: 50 Sodium Chloride IVPB 100 mls/hr Q12 ANNA Administration Protocol Ketorolac Tromethamine 30 mg 11/29/17 19:56 12/02/17 08:32 Toradol IVP 30 mg Q6 PRN Administration Pain, severe (8-10) Lactobacillus Acidophilus 1 cap 12/02/17 10:00 12/02/17 10:50 Bacid Acidophilus PO 1 cap BID ANNA Administration Midodrine 10 mg 12/01/17 14:00 12/02/17 10:53 Proamatine PO 10 mg TID ANNA Administration Morphine Sulfate 1 mg 11/30/17 17:38 12/01/17 04:02 Morphine IVP 1 mg Q4H PRN Administration Pain, moderate (4-7) Ondansetron HCl 4 mg 11/30/17 09:17 11/30/17 13:00 Zofran Inj IVP 4 mg Q6H PRN Administration Nausea/Vomiting Pantoprazole Sodium 40 mg 12/01/17 06:00 12/02/17 06:28 Protonix Ec Tab PO 40 mg 0600 ANNA Administration - Patient Studies Lab Studies: Microbiology Studies 12/01/17 08:14 Gram Stain - Final Sputum Lab Studies 09/11/18 09/11/18 09/10/18 Range/Units 06:10 06:10 10:48 WBC 17.5 H D (4.5-11.0) 10^3/ul RBC 2.93 L (3.5-6.1) 10^6/uL Hgb 8.3 L (12.0-16.0) g/dL Hct 25.2 L (36.0-48.0) % MCV 86.0 (80.0-105.0) fl MCH 28.3 (25.0-35.0) pg MCHC 32.9 (31.0-37.0) g/dl RDW 16.5 H (11.5-14.5) % Plt Count 278 (120.0-450.0) 10^3/uL MPV 12.9 H (7.0-11.0) fl Gran % 78.5 H (50.0-68.0) % Lymph % (Auto) 12.3 L (22.0-35.0) % Miller % (Auto) 9.1 H (1.0-6.0) % Eos % (Auto) 0.1 L (1.5-5.0) % Baso % (Auto) 0.0 (0.0-3.0) % Gran # 13.78 H (1.4-6.5) Lymph # (Auto) 2.2 (1.2-3.4) Miller # (Auto) 1.6 H (0.1-0.6) Eos # (Auto) 0.0 (0.0-0.7) Baso # (Auto) 0.00 (0.0-2.0) K/mm3 Sodium 142 (132-148) mmol/L Potassium 3.6 (3.6-5.0) mmol/L Chloride 116 H (98-107) mmol/L Carbon Dioxide 19 L (21-33) mmol/L Anion Gap 11 (10-20) BUN 20 (7-21) mg/dL Creatinine 0.9 (0.7-1.2) mg/dl Est GFR ( Amer) > 60 Est GFR (Non-Af Amer) > 60 Random Glucose 104 (70-110) mg/dL Calcium 8.3 L (8.4-10.5) mg/dL Phosphorus 3.0 (2.5-4.5) mg/dL Magnesium 2.4 H (1.7-2.2) mg/dL Total Bilirubin 0.5 (0.2-1.3) mg/dL AST 16 (14-36) U/L ALT 15 (7-56) U/L Alkaline Phosphatase 88 (38-126) U/L Total Protein 5.9 (5.8-8.3) g/dL Albumin 2.7 L (3.0-4.8) g/dL Globulin 3.1 gm/dL Albumin/Globulin Ratio 0.9 L (1.1-1.8) Vitamin B12 > 1000 H (239-931) pg/mL Folate 4.1 ng/mL Hepatitis A IgM Ab (NEGATIVE) Hep Bs Antigen (NEGATIVE) Hep B Core IgM Ab (NEGATIVE) Hepatitis C Antibody (NEGATIVE) 12/01/17 Range/Units 10:48 WBC (4.5-11.0) 10^3/ul RBC (3.5-6.1) 10^6/uL Hgb (12.0-16.0) g/dL Hct (36.0-48.0) % MCV (80.0-105.0) fl MCH (25.0-35.0) pg MCHC (31.0-37.0) g/dl RDW (11.5-14.5) % Plt Count (120.0-450.0) 10^3/uL MPV (7.0-11.0) fl Gran % (50.0-68.0) % Lymph % (Auto) (22.0-35.0) % Miller % (Auto) (1.0-6.0) % Eos % (Auto) (1.5-5.0) % Baso % (Auto) (0.0-3.0) % Gran # (1.4-6.5) Lymph # (Auto) (1.2-3.4) Miller # (Auto) (0.1-0.6) Eos # (Auto) (0.0-0.7) Baso # (Auto) (0.0-2.0) K/mm3 Sodium (132-148) mmol/L Potassium (3.6-5.0) mmol/L Chloride (98-107) mmol/L Carbon Dioxide (21-33) mmol/L Anion Gap (10-20) BUN (7-21) mg/dL Creatinine (0.7-1.2) mg/dl Est GFR ( Amer) Est GFR (Non-Af Amer) Random Glucose (70-110) mg/dL Calcium (8.4-10.5) mg/dL Phosphorus (2.5-4.5) mg/dL Magnesium (1.7-2.2) mg/dL Total Bilirubin (0.2-1.3) mg/dL AST (14-36) U/L ALT (7-56) U/L Alkaline Phosphatase (38-126) U/L Total Protein (5.8-8.3) g/dL Albumin (3.0-4.8) g/dL Globulin gm/dL Albumin/Globulin Ratio (1.1-1.8) Vitamin B12 (239-931) pg/mL Folate ng/mL Hepatitis A IgM Ab Negative (NEGATIVE) Hep Bs Antigen Negative (NEGATIVE) Hep B Core IgM Ab Negative (NEGATIVE) Hepatitis C Antibody Negative (NEGATIVE) Laboratory Results - last 24 hr 12/01/17 12/01/17 12/02/17 10:48 10:48 06:10 WBC 17.5 H D RBC 2.93 L Hgb 8.3 L Hct 25.2 L MCV 86.0 MCH 28.3 MCHC 32.9 RDW 16.5 H Plt Count 278 MPV 12.9 H Gran % 78.5 H Lymph % (Auto) 12.3 L Miller % (Auto) 9.1 H Eos % (Auto) 0.1 L Baso % (Auto) 0.0 Gran # 13.78 H Lymph # (Auto) 2.2 Miller # (Auto) 1.6 H Eos # (Auto) 0.0 Baso # (Auto) 0.00 Sodium Potassium Chloride Carbon Dioxide Anion Gap BUN Creatinine Est GFR ( Amer) Est GFR (Non-Af Amer) Random Glucose Calcium Phosphorus Magnesium Total Bilirubin AST ALT Alkaline Phosphatase Total Protein Albumin Globulin Albumin/Globulin Ratio Vitamin B12 > 1000 H Folate 4.1 Hepatitis A IgM Ab Negative Hep Bs Antigen Negative Hep B Core IgM Ab Negative Hepatitis C Antibody Negative 12/02/17 06:10 WBC RBC Hgb Hct MCV MCH MCHC RDW Plt Count MPV Gran % Lymph % (Auto) Miller % (Auto) Eos % (Auto) Baso % (Auto) Gran # Lymph # (Auto) Miller # (Auto) Eos # (Auto) Baso # (Auto) Sodium 142 Potassium 3.6 Chloride 116 H Carbon Dioxide 19 L Anion Gap 11 BUN 20 Creatinine 0.9 Est GFR ( Amer) > 60 Est GFR (Non-Af Amer) > 60 Random Glucose 104 Calcium 8.3 L Phosphorus 3.0 Magnesium 2.4 H Total Bilirubin 0.5 AST 16 ALT 15 Alkaline Phosphatase 88 Total Protein 5.9 Albumin 2.7 L Globulin 3.1 Albumin/Globulin Ratio 0.9 L Vitamin B12 Folate Hepatitis A IgM Ab Hep Bs Antigen Hep B Core IgM Ab Hepatitis C Antibody Review of Systems - Review of Systems All systems: reviewed and no additional remarkable complaints except Review of Systems: As per HPI Critical Care Progress Note - Nutrition Nutrition: Nutrition Category Date Time Status Heart Healthy Diet [DIET] Diets 11/30/17 Lunch Active Assessment/Plan - Assessment and Plan (Free Text) Assessment: 47F admitted to ICU for sepsis 2/2 PNA vs UTI Neuro: AAO3 No FND Reorient as necessary Cardio: Initially Hypotensive + Tachycardic Normotensive throughout day and night yesterday C/w Midodrine 10 Q8 Monitor pressures Maintain MAP >65 New onset Junctional rhythm Troponin + EKG show now evidence of ischemia Cardiac Echo pending for today LE Duplex negative for DVT Pulm: Satting well on room air CT Chest - RUL infiltrate; no definite evidence of PE R/o TB - AFB Smear - 2/3 sputum sample sent; third sample pending as of 12/02 Sputum Cx Received; results pending Satting well on room air Hx asthma - c/w duoneb PRN GI: Moving bowels well Tolerating diet well Nephro/: BUN/Cr - 20/0.9 Good urine output Strict IO Heme: Leukocytosis - improving today Most likely elevated 2/2 steroid use Continue to monitor H/H Stable in setting of chronic anemia No s/s of HD compromise ID: Sepsis - PNA vs UTI C/w Merem, Zyvox Zithromax DC'd yesterday Doxycycline started today Sputum Cx pending UCx- G+ Cocci, GNR ;GNR Pansensitive Will deescalate ABX therapy as per ID discretion Dispo: Patient is stable for downgrade to [facility] at this time. Patient was seen, examined, and discussed w/ attending physician Dr. Eda Shelton DO PGY1 - Internal [facility] - Pager [phone] - Date & Time Date: 12/02/17 Time: 11:31 <Tu Veras - Last Filed: 12/02/17 14:16> CCU Objective - Vital Signs / Intake & Output Intake and Output (Last 8hrs): Intake & Output 12/01/17 12/02/17 12/02/17 22:59 06:59 14:59 Intake Total 1400 700 Output Total 200 700 Balance 1200 0 Intake: IV 800 400 Left Forearm 800 400 Oral 600 300 Output: Urine 200 700 Urethral ([place]) 200 700 Other: # Bowel Movements 0 2 - Medications Active Medications: Active Medications Generic Name Dose Route Start Last Admin Trade Name Freq PRN Reason Stop Dose Admin Acetaminophen 650 mg 11/29/17 08:12 12/02/17 10:51 Tylenol 325mg Tab PO 650 mg Q6H PRN Administration Fever >100.4 F OR mild pain Albuterol Sulfate 2.5 mg 11/29/17 08:13 11/30/17 14:16 Albuterol 0.083% Inhal Bharati (2.5 Mg/3 Ml) Ud INH 2.5 mg [id number] PRN Administration Shortness of Breath Enoxaparin Sodium 40 mg 11/30/17 11:45 12/02/17 10:53 Lovenox SC 40 mg DAILY ANNA Administration Protocol Meropenem 50 mls @ 100 mls/hr 11/29/17 16:57 12/02/17 06:29 Merrem Iv 1 Gm Premix IVPB 12/04/17 06:29 100 mls/hr Q8 ANNA Administration Protocol Linezolid 600 mg in 300 mls @ 200 mls/hr 11/29/17 22:00 12/02/17 10:50 Zyvox 600mg/300ml D5w IVPB 12/06/17 22:01 200 mls/hr Q12 ANNA Administration Protocol Doxycycline Hyclate 100 mg/ 100 mls @ 100 mls/hr 12/01/17 22:00 12/02/17 10: 50 Sodium Chloride IVPB 100 mls/hr Q12 ANNA Administration Protocol Ketorolac Tromethamine 30 mg 11/29/17 19:56 09/11/18 08:32 Toradol IVP 30 mg Q6 PRN Administration Pain, severe (8-10) Lactobacillus Acidophilus 1 cap 12/02/17 10:00 12/02/17 10:50 Bacid Acidophilus PO 1 cap BID ANNA Administration Midodrine 10 mg 12/01/17 14:00 12/02/17 10:53 Proamatine PO 10 mg TID ANNA Administration Morphine Sulfate 1 mg 11/30/17 17:38 12/02/17 12:59 Morphine IVP 1 mg Q4H PRN Administration Pain, moderate (4-7) Ondansetron HCl 4 mg 11/30/17 09:17 11/30/17 13:00 Zofran Inj IVP 4 mg Q6H PRN Administration Nausea/Vomiting Pantoprazole Sodium 40 mg 12/01/17 06:00 12/02/17 06:28 Protonix Ec Tab PO 40 mg 0600 ANNA Administration - Patient Studies Lab Studies: Microbiology Studies 12/01/17 08:14 Gram Stain - Final Sputum Lab Studies 12/02/17 12/02/17 12/02/17 Range/Units 13:10 06:10 06:10 WBC 17.5 H D (4.5-11.0) 10^3/ul RBC 2.93 L (3.5-6.1) 10^6/uL Hgb 8.3 L (12.0-16.0) g/dL Hct 25.2 L (36.0-48.0) % MCV 86.0 (80.0-105.0) fl MCH 28.3 (25.0-35.0) pg MCHC 32.9 (31.0-37.0) g/dl RDW 16.5 H (11.5-14.5) % Plt Count 278 (120.0-450.0) 10^3/uL MPV 12.9 H (7.0-11.0) fl Gran % 78.5 H (50.0-68.0) % Lymph % (Auto) 12.3 L (22.0-35.0) % Miller % (Auto) 9.1 H (1.0-6.0) % Eos % (Auto) 0.1 L (1.5-5.0) % Baso % (Auto) 0.0 (0.0-3.0) % Gran # 13.78 H (1.4-6.5) Lymph # (Auto) 2.2 (1.2-3.4) Miller # (Auto) 1.6 H (0.1-0.6) Eos # (Auto) 0.0 (0.0-0.7) Baso # (Auto) 0.00 (0.0-2.0) K/mm3 Sodium 142 (132-148) mmol/L Potassium 3.6 (3.6-5.0) mmol/L Chloride 116 H (98-107) mmol/L Carbon Dioxide 19 L (21-33) mmol/L Anion Gap 11 (10-20) BUN 20 (7-21) mg/dL Creatinine 0.9 (0.7-1.2) mg/dl Est GFR ( Amer) > 60 Est GFR (Non-Af Amer) > 60 Random Glucose 104 (70-110) mg/dL Calcium 8.3 L (8.4-10.5) mg/dL Phosphorus 3.0 (2.5-4.5) mg/dL Magnesium 2.4 H (1.7-2.2) mg/dL Total Bilirubin 0.5 (0.2-1.3) mg/dL AST 16 (14-36) U/L ALT 15 (7-56) U/L Alkaline Phosphatase 88 (38-126) U/L Total Protein 5.9 (5.8-8.3) g/dL Albumin 2.7 L (3.0-4.8) g/dL Globulin 3.1 gm/dL Albumin/Globulin Ratio 0.9 L (1.1-1.8) Vitamin B12 (239-931) pg/mL Folate ng/mL Stool Occult Blood Positive H (NEGATIVE) Hepatitis A IgM Ab (NEGATIVE) Hep Bs Antigen (NEGATIVE) Hep B Core IgM Ab (NEGATIVE) Hepatitis C Antibody (NEGATIVE) 12/01/17 12/01/17 Range/Units 10:48 10:48 WBC (4.5-11.0) 10^3/ul RBC (3.5-6.1) 10^6/uL Hgb (12.0-16.0) g/dL Hct (36.0-48.0) % MCV (80.0-105.0) fl MCH (25.0-35.0) pg MCHC (31.0-37.0) g/dl RDW (11.5-14.5) % Plt Count (120.0-450.0) 10^3/uL MPV (7.0-11.0) fl Gran % (50.0-68.0) % Lymph % (Auto) (22.0-35.0) % Miller % (Auto) (1.0-6.0) % Eos % (Auto) (1.5-5.0) % Baso % (Auto) (0.0-3.0) % Gran # (1.4-6.5) Lymph # (Auto) (1.2-3.4) Miller # (Auto) (0.1-0.6) Eos # (Auto) (0.0-0.7) Baso # (Auto) (0.0-2.0) K/mm3 Sodium (132-148) mmol/L Potassium (3.6-5.0) mmol/L Chloride (98-107) mmol/L Carbon Dioxide (21-33) mmol/L Anion Gap (10-20) BUN (7-21) mg/dL Creatinine (0.7-1.2) mg/dl Est GFR ( Amer) Est GFR (Non-Af Amer) Random Glucose (70-110) mg/dL Calcium (8.4-10.5) mg/dL Phosphorus (2.5-4.5) mg/dL Magnesium (1.7-2.2) mg/dL Total Bilirubin (0.2-1.3) mg/dL AST (14-36) U/L ALT (7-56) U/L Alkaline Phosphatase (38-126) U/L Total Protein (5.8-8.3) g/dL Albumin (3.0-4.8) g/dL Globulin gm/dL Albumin/Globulin Ratio (1.1-1.8) Vitamin B12 > 1000 H (239-931) pg/mL Folate 4.1 ng/mL Stool Occult Blood (NEGATIVE) Hepatitis A IgM Ab Negative (NEGATIVE) Hep Bs Antigen Negative (NEGATIVE) Hep B Core IgM Ab Negative (NEGATIVE) Hepatitis C Antibody Negative (NEGATIVE) Laboratory Results - last 24 hr 12/01/17 12/01/17 12/02/17 10:48 10:48 06:10 WBC 17.5 H D RBC 2.93 L Hgb 8.3 L Hct 25.2 L MCV 86.0 MCH 28.3 MCHC 32.9 RDW 16.5 H Plt Count 278 MPV 12.9 H Gran % 78.5 H Lymph % (Auto) 12.3 L Miller % (Auto) 9.1 H Eos % (Auto) 0.1 L Baso % (Auto) 0.0 Gran # 13.78 H Lymph # (Auto) 2.2 Miller # (Auto) 1.6 H Eos # (Auto) 0.0 Baso # (Auto) 0.00 Sodium Potassium Chloride Carbon Dioxide Anion Gap BUN Creatinine Est GFR ( Amer) Est GFR (Non-Af Amer) Random Glucose Calcium Phosphorus Magnesium Total Bilirubin AST ALT Alkaline Phosphatase Total Protein Albumin Globulin Albumin/Globulin Ratio Vitamin B12 > 1000 H Folate 4.1 Stool Occult Blood Hepatitis A IgM Ab Negative Hep Bs Antigen Negative Hep B Core IgM Ab Negative Hepatitis C Antibody Negative 12/02/17 12/02/17 06:10 13:10 WBC RBC Hgb Hct MCV MCH MCHC RDW Plt Count MPV Gran % Lymph % (Auto) Miller % (Auto) Eos % (Auto) Baso % (Auto) Gran # Lymph # (Auto) Miller # (Auto) Eos # (Auto) Baso # (Auto) Sodium 142 Potassium 3.6 Chloride 116 H Carbon Dioxide 19 L Anion Gap 11 BUN 20 Creatinine 0.9 Est GFR ( Amer) > 60 Est GFR (Non-Af Amer) > 60 Random Glucose 104 Calcium 8.3 L Phosphorus 3.0 Magnesium 2.4 H Total Bilirubin 0.5 AST 16 ALT 15 Alkaline Phosphatase 88 Total Protein 5.9 Albumin 2.7 L Globulin 3.1 Albumin/Globulin Ratio 0.9 L Vitamin B12 Folate Stool Occult Blood Positive H Hepatitis A IgM Ab Hep Bs Antigen Hep B Core IgM Ab Hepatitis C Antibody Critical Care Progress Note - Nutrition Nutrition: Nutrition Category Date Time Status Heart Healthy Diet [DIET] Diets 11/30/17 Lunch Active Addendum Addendum: 12/02/17 14:12 ICU Attending Addendum: Patient seen and examined. Case reviewed on round with housestaff. Agree with resident note above with the following additions/exceptions: 47 F with a hx of RA, asthma, SBO (from adhesions), chronic STEW (on IV iron q- month) admitted to the ICU with severe sepsis. CT chest shows right consolidation PNA currently on merrep, zyvox and azithro. She was on abatacept (Orencia) recently but I do not see records showing she was taking it upon admission. ID had placed her on resp isolation to r/o TB. Awaiting 3 induced sputum smears. Cont empiric abx as per ID - on doxy now due to bradycardia zyvox and merrem as well Cont nebs PRN for her asthma. Currently on room air. d/c steroids d/c midodrine Urine growing GPC and GNR, await spec of bug. WBC down from 33 to 17 She is bradycardic and unclear why. Cardio consulted. No hx of BB use. asymptomatic bradycardia Cont diet PO OOB to chair hep SQ for DVT ppx Dispo: ok for transfer to tele with (neg pressure TB isolation )to cont to monitor her bradycardia which is currently asymtpomatic with no signs of hypoperfusion Rest of care as noted above. Tu Veras MD [employer] 12/02/17 14:14
[2017-12-02] MEDS: Morphine 2 mg/ml ISec IVP PRN ×3 (12:59→23:58)
--- NOTE | 2017-12-02 14:04 | PN ---
DATE: 12/02/2017 SUBJECTIVE: The patient is still experiencing sharp chest pain while coughing. She is experiencing productive cough of yellowish sputum. She denies retrosternal chest pain. She is still bradycardic, but did not require any atropine. PHYSICAL EXAMINATION: VITAL SIGNS: Blood pressure 122/66, heart rate the lowest was 38, temperature 98.1, respirations 19. HEENT: Pale conjunctivae. CHEST: Absent breath sounds of the right apex. HEART: S1 and S2 regular. ABDOMEN: Soft. EXTREMITIES: No edema. LABORATORY DATA: Today's white count 17.5, hemoglobin and hematocrit 8.3 and 25.2, platelet count 178,000. Today's SMA-7: Sodium 142, potassium 3.6, chloride 116, CO2 of 19, glucose 104, BUN 20, creatinine 0.9. All troponins are negative so far. Hepatitis profile is negative. Urine Legionella antigen is negative. HIV 1 and 2 antigen, antibody are nonreactive. Stool occult blood is positive. Venous Doppler of lower extremities, no evidence of DVT. Urine is positive for Streptococcus anginosus and gram-negative rods. ASSESSMENT: 1. Right upper lobe pneumonia. 2. Sinus bradycardia with junctional escape. 3. Improved hypertension. 4. Anemia and stool positive for occult blood. 5. Obesity. RECOMMENDATIONS: Continue current albuterol inhaler every 6 hours p.r.n. Continue doxycycline at 100 mg intravenously every 12 hours, subcutaneous Lovenox 40 mg subcutaneously once a day, IV meropenem at 1 g daily, ProAmatine 10 mg p.o. t.i.d., Zofran 4 mg intravenously every 6 hours p.r.n., Zyvox 600 mg intravenously every 12 hours. The patient is scheduled to have a bedside echocardiography study. Lupus markers results are still pending. Case was discussed with the medical team. Andres Casanova MD
[2017-12-02] MEDS: Albuterol 0.083% Inhal Sol (2.5 mg/3 mL) UD INH PRN (16:20)
--- NOTE | 2017-12-02 17:24 | PN ---
DATE: 12/02/2017 SUBJECTIVE: The patient is in bed in no acute distress. Seen earlier this morning in room 128, bed 4. PHYSICAL EXAMINATION: VITAL SIGNS: Temperature is 98, blood pressure is 120/60, respiratory rate of 25, heart rate of 44. HEENT: Unremarkable. NECK: Supple. LUNGS: Have decreased breath sounds. HEART: Normal S1, S2. ABDOMINAL: Soft. LABORATORY EXAMINATION: Reveals a white count of 17,500, hemoglobin of 8, platelets of 278. Chemistries reveals a BUN of 20, creatinine of 0.9. Urinalysis is noted. Microbiology reveals the urine cultures are noted. Sputum cultures are pending. Naris MRSA is negative. Blood cultures are negative. Mycobacterial AFB smears, no AFB is seen. The cultures are pending. Review of orders, the patient is on doxycycline, meropenem and Zyvox. ASSESSMENT AND PLAN: A 47-year-old female with severe sepsis with acute hypoxic respiratory failure and severe right upper lobe, right lower lobe community-acquired pneumonia in a patient with rheumatoid arthritis on anti-TNF inhibitor rheumatoid arthritis and has been taking anti-TNF inhibitor past 2 years, although intermittently on day #4 of Zyvox, meropenem and doxycycline and negative acid-fast bacillus stain. The patient continues to be bradycardiac with Streptococcus sanguinis in the urine and Gram-negative tegan in the urine. Negative blood cultures. Naris methicillin-resistant Staphylococcus aureus is not detected. We will check on sputum culture. We will follow with you. Huey Steel MD
[2017-12-03] MEDS: Meropenem IV 1 gm in NS 50 ML IVPB SCH ×3 (05:57→21:24)
[2017-12-03] MEDS: Pantoprazole 40 mg EC Tab PO SCH (05:57)
[2017-12-03 06:12] LABS: BASO # 0.01 K/mm3 (0.0-2.0); BASO % 0.1 % (0.0-3.0); EOS # 0.1 (0.0-0.7); EOS % 0.9 % (1.5-5.0); GRAN # 5.16 (1.4-6.5); GRAN % 59.1 % (50.0-68.0); HEMOGLOBIN 8.2 g/dL (12.0-16.0); LYMPH % 22.5 % (22.0-35.0); MEAN CELL VOLUME 85.8 fl (80.0-105.0); MEAN CORPUSCULAR HEMOGLOBIN 28.4 pg (25.0-35.0); MEAN CORPUSCULAR HGB CONC 33.1 g/dl (31.0-37.0); MEAN PLATELET VOLUME 12.4 fl (7.0-11.0); MONO # 1.5 (0.1-0.6); MONO % 17.4 % (1.0-6.0); RBC 2.89 10^6/uL (3.5-6.1); RED CELL DISTRIBUTION WIDTH 16.3 % (11.5-14.5); WHITE BLOOD COUNT 8.7 10^3/ul (4.5-11.0)
--- NOTE | 2017-12-03 06:26 | CP.PCM.PN ---
<Myranda Enrique - Last Filed: 12/03/17 21:53> Subjective - Date & Time of Evaluation Date of Evaluation: 12/03/17 Time of Evaluation: 07:40 - Subjective Subjective: PGY-1 Myranda Enrique D.O. Medicine progress note for Dr. Shelton's service: Patient was seen and examined this morning. No events reported over night. Patient is on isolation for TB work-up. Patient states she is feeling better. She has an increased appetite. She denies abdominal pain, nausea, and vomiting. She denies SOB, her cough is improving. Objective - Vital Signs/Intake and Output Vital Signs (last 24 hours): Temp Pulse Resp BP Pulse Ox 98.6 F 40 L 20 108/85 100 12/02/17 18:00 12/02/17 18:00 12/02/17 18:00 12/02/17 18:00 12/02/17 18:00 Intake and Output: 12/02/17 12/03/17 18:59 06:59 Intake Total 850 Output Total 550 Balance 300 - Medications Medications: Current Medications Acetaminophen (Tylenol 325mg Tab) 650 mg PO Q6H PRN PRN Reason: Fever >100.4 F OR mild pain Last Admin: 12/02/17 10:51 Dose: 650 mg Albuterol Sulfate (Albuterol 0.083% Inhal Bharati (2.5 Mg/3 Ml) Ud) 2.5 mg INH [id number] PRN PRN Reason: Shortness of Breath Last Admin: 12/02/17 16:20 Dose: 2.5 mg Enoxaparin Sodium (Lovenox) 40 mg SC DAILY ANNA PRN Reason: Protocol Last Admin: 12/02/17 10:53 Dose: 40 mg Meropenem (Merrem Iv 1 Gm Premix) 50 mls @ 100 mls/hr IVPB Q8 ANNA PRN Reason: Protocol Stop: 12/04/17 06:29 Last Admin: 12/03/17 05:57 Dose: 100 mls/hr Linezolid (Zyvox 600mg/300ml D5w) 600 mg in 300 mls @ 200 mls/hr IVPB Q12 ANNA PRN Reason: Protocol Stop: 12/06/17 22:01 Last Admin: 12/02/17 21:19 Dose: 200 mls/hr Doxycycline Hyclate 100 mg/ (Sodium Chloride) 100 mls @ 100 mls/hr IVPB Q12 ANNA PRN Reason: Protocol Last Admin: 12/02/17 21:43 Dose: 100 mls/hr Lactobacillus Acidophilus (Bacid Acidophilus) 1 cap PO BID ANNA Last Admin: 12/02/17 18:14 Dose: 1 cap Midodrine (Proamatine) 5 mg PO TID ANNA Morphine Sulfate (Morphine) 1 mg IVP Q4H PRN PRN Reason: Pain, moderate (4-7) Last Admin: 12/02/17 23:58 Dose: 1 mg Ondansetron HCl (Zofran Inj) 4 mg IVP Q6H PRN PRN Reason: Nausea/Vomiting Last Admin: 11/30/17 13:00 Dose: 4 mg Pantoprazole Sodium (Protonix Ec Tab) 40 mg PO 0600 [facility] Last Admin: 12/03/17 05:57 Dose: 40 mg - Labs Labs: 12/03/17 05:30 12/02/17 06:10 PT 15.5 SECONDS (9.4-12.5) H 11/30/17 05:00 INR 1.34 11/30/17 05:00 APTT 28.1 Seconds (25.1-36.5) 11/30/17 05:00 - Constitutional Appears: Non-toxic, No Acute Distress - Head Exam Head Exam: ATRAUMATIC, NORMAL INSPECTION, NORMOCEPHALIC - Eye Exam Eye Exam: EOMI, Normal appearance - ENT Exam ENT Exam: Mucous Membranes Moist, Normal Exam - Neck Exam Neck Exam: Normal Inspection - Respiratory Exam Respiratory Exam: Clear to Ausculation Bilateral, NORMAL BREATHING PATTERN - Cardiovascular Exam Cardiovascular Exam: Bradycardia (40s), REGULAR RHYTHM - GI/Abdominal Exam GI & Abdominal Exam: Soft, Hypoactive Bowel Sounds. absent: Tenderness - Rectal Exam Rectal Exam: Deferred - Extremities Exam Extremities Exam: Normal Inspection - Neurological Exam Neurological Exam: Alert, Awake, CN II-XII Intact, Oriented x3 Neuro motor strength exam: Left Upper Extremity: 5, Right Upper Extremity: 5, Left Lower Extremity: 5, Right Lower Extremity: 5 - Psychiatric Exam Psychiatric exam: Normal Affect, Normal Mood - Skin Skin Exam: Dry, Intact, Normal Color, Warm Assessment and Plan - Assessment and Plan (Free Text) Assessment: Patient is a 47 yo AA female with a history of RA on monoclonal Ab, asthma/COPD , gastric bypass with subsequent SBO, and iron deficiency anemia who presented with SOB, R chest wall pain, significant fatigue, and subjective fevers and chills. She was found to have significant leukocytosis. Imaging demonstrated RUL , RLL infiltrates and d/l atelectasis. UA is consistent with UTI. Patient was hypotensive with weak response to IVF, and was transferred to the ICU. She has not required pressors thus far. Patient was placed on isolation for concern of opportunistic infections 2/2 immunosuppression from monoclonal Ab use. Plan to transfer to telemetry. Plan: Severe sepsis 2/2 PNA and UTI, improving- h/o asthma/COPD - CT chest: Dense right upper lobe infiltrate with patchy infiltrate right lower lobe, borderline at the left lower lobe - CTA chest: No evidence of PE - CXR 11/30: Mild interval worsening of infiltrates at the right and left bases and mid left lung zone as well. Dense infiltrate unchanged right upper lobe. - Isolation precautions (TB) - Afebrile- Tmax 100 on 11/29 - Tylenol 650 mg PO q6hrs PRN fever - Lactate 3.3 - Procalcintonin 20.61 - Leukocytosis resolved (WBC 30s->17.5->8.7)- steroids discontinued - SBP 120s, maintain MAP >65 - Minodrine 5 mg PO TID- taper - IVF discontinued - Quantiferon indeterminate - Blood Cx negative >4 days - Urine Cx- Strep anginosus (>100,000) sensitive to vanco and PCN, GNR (<10, 000), yeast - Sputum Cx- yeast - AFB x3- 2 negative prelim - Urine L. pneumophila Ag negative - HIV nonreactive - Meropenem 1 g IV q8hrs (started 11/29) - Linezolid 600 mg IV q12hrs (started 11/29) - Doxycycline 100 mg IV q12hrs (started 12/01) - Albuterol 2.5 mg INH q6hrs PRN SOB - Toradol 30 mg IV q6hrs PRN pain - Morphine 1 mg q4hrs PRN pain - LE Dopplers: no DVT - ICU consulted (Mark) - ID consulted (Damián)- suspect CAP but need to r/o TB, trend procal, changed Vancomycin to Zyvox due to reaction and changed Zosyn to Merrem because of persistent hypotension Bradycardia (HR 30s-40s) - EKG 12/01: marked sinus bradycardia, low voltage QRS - Echo: EF 60%, moderate pulm HTN - F/u lupus panel - Cardiology consulted ([facility])- atropine 0.5 mg IV if HR <30 H/o SBO s/p gastric bypass in 2001- N/V/abd pain presently resolved - CT A/P: Post gastric by pass operative changes are identified with no bowel obstruction appreciable or gross local bowel mesenteric reaction. No ascites or free air. Prior cholecystectomy. - Zofran 4 mg IV q6hrs PRN - Hepatitis panel negative - GI consulted (Lorrie)- suspect N/V 2/2 sepsis vs medication intolerance Iron deficiency anemia- current Hgb 8.4, no signs of active bleed - Iron low (31), TIBC wnl (325), % sat low (10), ferritin wnl (106) - B12 wnl (>1000), folate wnl (4.1) - FOBT positive - Peripheral smear- RBC microcytic hypochromic, few teardrop, occasional target cells, no schistocytes - Maintain Hgb >7, transfusion if necessary Low TSH (0.04)- repeat wnl (1.4) - Free T4 wnl (5.6)- repeat low (4) - T3 low (0.33) Hypokalemia, resolved - Repleted - Monitor daily Rheumatoid Arthritis- currently asymptomatic - Hold anti-TNF alpha - Work-up for opportunistic infections IVF: not indicated GI ppx: Protonix 40 mg PO daily VTE ppx: Lovenox 40 mg SC, SCDs Diet: heart healthy Code status: full code Case was discussed with attending, Dr. Shelton. <Arelis Shelton - Last Filed: 12/05/17 08:07> Objective - Vital Signs/Intake and Output Vital Signs (last 24 hours): Temp Pulse Resp BP Pulse Ox 99.6 F 77 18 112/73 99 12/05/17 05:46 12/05/17 05:46 12/05/17 05:46 12/05/17 05:46 12/05/17 05:46 Intake and Output: 12/05/17 12/05/17 06:59 18:59 Intake Total 220 Balance 220 - Medications Medications: Current Medications Acetaminophen (Tylenol 325mg Tab) 650 mg PO Q6H PRN PRN Reason: Fever >100.4 F OR mild pain Last Admin: 12/02/17 10:51 Dose: 650 mg Albuterol Sulfate (Albuterol 0.083% Inhal Bharati (2.5 Mg/3 Ml) Ud) 2.5 mg INH [id number] [facility] Last Admin: 12/05/17 01:05 Dose: 2.5 mg Doxycycline Hyclate (Doryx) 100 mg PO Q12 ANNA PRN Reason: Protocol Stop: 12/11/17 10:01 Last Admin: 12/04/17 21:47 Dose: 100 mg Enoxaparin Sodium (Lovenox) 40 mg SC DAILY [facility] PRN Reason: Protocol Last Admin: 12/04/17 09:36 Dose: 40 mg Guaifenesin (Mucinex La) 600 mg PO BID [facility] Last Admin: 12/04/17 17:42 Dose: 600 mg Meropenem (Merrem Iv 1 Gm Premix) 50 mls @ 100 mls/hr IVPB Q8 ANNA PRN Reason: Protocol Stop: 12/06/17 16:58 Last Admin: 12/05/17 06:37 Dose: 100 mls/hr Lactobacillus Acidophilus (Bacid Acidophilus) 1 cap PO BID [facility] Last Admin: 12/04/17 17:41 Dose: 1 cap Midodrine (Proamatine) 5 mg PO BID [facility] Last Admin: 12/04/17 17:42 Dose: 5 mg Morphine Sulfate (Morphine) 1 mg IVP Q8 PRN PRN Reason: Pain, moderate (4-7) Last Admin: 12/05/17 06:39 Dose: 1 mg Ondansetron HCl (Zofran Inj) 4 mg IVP Q6H PRN PRN Reason: Nausea/Vomiting Last Admin: 11/30/17 13:00 Dose: 4 mg Pantoprazole Sodium (Protonix Ec Tab) 40 mg PO 0600 [facility] Last Admin: 12/05/17 06:38 Dose: 40 mg - Labs Labs: 12/05/17 07:00 12/05/17 06:30 PT 15.5 SECONDS (9.4-12.5) H 11/30/17 05:00 INR 1.34 11/30/17 05:00 APTT 28.1 Seconds (25.1-36.5) 11/30/17 05:00 Attending/Attestation - Attestation I have personally seen and examined this patient.: Yes I have fully participated in the care of the patient.: Yes I have reviewed all pertinent clinical information, including history, physical exam and plan: Yes Notes (Text): Patient seen and examined by me at 09:35AM with resident 12/03/17. Case including HPI, physical exam, and assessment and plan discussed with resident. Agree with above with following additions/corrections. 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 Patient states that she is feeling better. She is sitting up in a chair today. Appetite improved. Abdominal "soreness" resolved. Nausea resolved. No vomiting. No fevers or chills. No headaches or dizziness. No chest pain or shortness of breath. No dysuria. Patient is having bowel movements, no hematochezia or blood in stool. Physical exam: General: Awake and alert sitting up in bed in no acute distress HEENT: Normocephalic atraumatic. Extraocular muscles intact. Pupils equal reactive. No scleral icterus. Oropharynx is pink and moist. No pharyngeal erythema or exudate appreciated. Neck is supple. Cardiovascular: Bradycardic S1, S2. No murmurs, rubs, or gallops appreciated Pulmonary: Normal respiratory effort. No rhonchi, rales or wheezing appreciated. Gastrointestinal: Soft, nondistended. Improved tenderness lower abdomen and suprapubic area. Positive bowel sounds all 4 quadrants, no guarding. Musculoskeletal: Moves all extremities, no calf tenderness, no edema appreciated. Central nervous system: AAO x 3. CN 2-12 grossly intact. Dermatologic: Skin warm and dry. 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 1. Severe sepsis. Resolving. Secondary to UTI and pneumonia. ID following, recommendations appreciated. Resolving. Urine culture positive for streptococcus anginosus. Blood culture with no growth. Rule out TB. Quantiferon indeterminate Sputum for AFB pending. Sputum culture pending. Continue Zyvox, doxycycline, and meropenem. Lactic acidosis resolved. Procalcitonin was 20.61. Leukocytosis resolved. Patient remains afebrile. Chest CT per radiologist shows dense right upper lobe infiltrate with patchy infiltrate right lower lobe, boderline at left lower lobe. CTA chest per radiologist showed no pulmonary embolus, artifacts obscure long bases however; dense right upper lobe infiltrate and limited right lower lobe infiltrate reiterated and limited left lower lobe atelectasis reiterated. Chest xray per radiologist showed mild interval worsening of infiltrates at the right and left bases and mid left lung zone as well, dense infiltrate unchanged right upper lobe. 2. Abdominal pain. Nausea and vomiting. Resolving. Continue Zofran. GI following , recommendations appreciated. CT abd/pelvis per radiologist showed post gastric bypass operative changes are identified with no bowel obstruction appreciable or gross local bowel mesenteric reaction; no ascites or free air; prior cholecystectomy. Hepatitis panel negative. 3. Stool for occult blood positive. H&H stable. GI following, follow up recommendations. 4. Bradycardia. Unclear etiology. Improving. Cardiology following, recommendations appreciated. 2D echo per road design engineer shows left ventricular normal size, normal left ventricular wall thickness, left ventricular function is normal, left ventricular ejection fraction is within normal range, normal LV segmental wall motion, moderate pulmonary hypertension, mild aortic regurgitation. Lupus panel pending. Continue to monitor on telemetry. 5. Iron deficiency anemia. Patient get IV iron infusions as an outpatient. Continue to monitor CBC. Stool for occult blood positive. Follow up GI recommendations. 6. Abnormal TSH. Repeat TSH within normal limits.. 7. Hypokalemia. Resolved. Continue to monitor. 8. Rheumatoid Arthritis. Home medications held for now secondary to acute infection. 9. GI/DVT prophylaxis. Protonix and Lovenox. Case was discussed in detail with the patient regarding current diagnosis and treatment plan.
[2017-12-03 06:54] LABS: ALB/GLOB RATIO 0.9 (1.1-1.8); ALBUMIN 2.7 g/dL (3.0-4.8); ALT/SGPT 23 U/L (7-56); AST/SGOT 12 U/L (14-36); BLOOD UREA NITROGEN 12 mg/dL (7-21); CALCIUM 8.1 mg/dL (8.4-10.5); GFR NON-AFRICAN AMERICAN > 60
--- NOTE | 2017-12-03 07:01 | CP.PCM.PN ---
<Sushil Hoffmann - Last Filed: 12/03/17 10:19> Subjective - Date & Time of Evaluation Date of Evaluation: 12/03/17 Time of Evaluation: 06:58 - Subjective Subjective: GI Fellow PGY4, No acute events overnight. 5pt ROS neg except for above. Objective - Vital Signs/Intake and Output Vital Signs (last 24 hours): Temp Pulse Resp BP Pulse Ox 98.6 F 40 L 20 108/85 100 12/02/17 18:00 12/02/17 18:00 12/02/17 18:00 12/02/17 18:00 12/02/17 18:00 Intake and Output: 12/02/17 12/03/17 18:59 06:59 Intake Total 850 Output Total 550 Balance 300 - Medications Medications: Current Medications Acetaminophen (Tylenol 325mg Tab) 650 mg PO Q6H PRN PRN Reason: Fever >100.4 F OR mild pain Last Admin: 12/02/17 10:51 Dose: 650 mg Albuterol Sulfate (Albuterol 0.083% Inhal Bharati (2.5 Mg/3 Ml) Ud) 2.5 mg INH [id number] PRN PRN Reason: Shortness of Breath Last Admin: 12/02/17 16:20 Dose: 2.5 mg Enoxaparin Sodium (Lovenox) 40 mg SC DAILY ANNA PRN Reason: Protocol Last Admin: 12/02/17 10:53 Dose: 40 mg Meropenem (Merrem Iv 1 Gm Premix) 50 mls @ 100 mls/hr IVPB Q8 ANNA PRN Reason: Protocol Stop: 12/06/17 16:58 Last Admin: 12/03/17 05:57 Dose: 100 mls/hr Linezolid (Zyvox 600mg/300ml D5w) 600 mg in 300 mls @ 200 mls/hr IVPB Q12 ANNA PRN Reason: Protocol Stop: 12/06/17 22:01 Last Admin: 12/02/17 21:19 Dose: 200 mls/hr Doxycycline Hyclate 100 mg/ (Sodium Chloride) 100 mls @ 100 mls/hr IVPB Q12 ANNA PRN Reason: Protocol Last Admin: 12/02/17 21:43 Dose: 100 mls/hr Lactobacillus Acidophilus (Bacid Acidophilus) 1 cap PO BID ANNA Last Admin: 12/02/17 18:14 Dose: 1 cap Midodrine (Proamatine) 5 mg PO TID [facility] Morphine Sulfate (Morphine) 1 mg IVP Q4H PRN PRN Reason: Pain, moderate (4-7) Last Admin: 12/02/17 23:58 Dose: 1 mg Ondansetron HCl (Zofran Inj) 4 mg IVP Q6H PRN PRN Reason: Nausea/Vomiting Last Admin: 11/30/17 13:00 Dose: 4 mg Pantoprazole Sodium (Protonix Ec Tab) 40 mg PO 0600 [facility] Last Admin: 12/03/17 05:57 Dose: 40 mg - Labs Labs: 12/03/17 05:30 12/03/17 05:30 PT 15.5 SECONDS (9.4-12.5) H 11/30/17 05:00 INR 1.34 11/30/17 05:00 APTT 28.1 Seconds (25.1-36.5) 11/30/17 05:00 Assessment and Plan - Assessment and Plan (Free Text) Assessment: 47 year old female with a past medical history significant for RA, asthma, 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 GI was consulted for N/V and sepsis in the setting of history of gastric bypass surgery. #Chronic Iron Def anemia #Sepsis - PNA vs UTI, TB testing currently. Urine with strep species. #RA #Asthma #Hx SBO #Gastric Bypass Plan: -CT Abdomen/Pelvis reviewed and discussed with patient -Continue Zofran PRN for N/V -Heart Healthy Diet -Continue PPI daily -Noted to have history of chronic anemia; B12/Folate within normal limits; - FOBT positive. Previous EGD at [facility] 03/2015. No critical findings. Reported EGD/ CSPY at [facility] [place]. Patient states nothing was found at that time. -Continue to monitor with serial CBC's -LFT's within normal limits; Hepatitis panel negative -Antibiotics per ID, all recommendations appreciated -No endoscopic procedures planned at this time. <Brittney Andrew V - Last Filed: 12/04/17 22:27> Objective - Vital Signs/Intake and Output Vital Signs (last 24 hours): Temp Pulse Resp BP Pulse Ox 98 F 60 18 105/68 95 12/04/17 17:31 12/04/17 18:00 12/04/17 17:31 12/04/17 17:31 12/04/17 06:00 Intake and Output: 12/04/17 12/05/17 18:59 06:59 Intake Total 580 Output Total 600 Balance -20 - Medications Medications: Current Medications Acetaminophen (Tylenol 325mg Tab) 650 mg PO Q6H PRN PRN Reason: Fever >100.4 F OR mild pain Last Admin: 12/02/17 10:51 Dose: 650 mg Albuterol Sulfate (Albuterol 0.083% Inhal Bharati (2.5 Mg/3 Ml) Ud) 2.5 mg INH [id number] [facility] Last Admin: 12/04/17 19:33 Dose: 2.5 mg Doxycycline Hyclate (Doryx) 100 mg PO Q12 ANNA PRN Reason: Protocol Stop: 12/11/17 10:01 Last Admin: 12/04/17 21:47 Dose: 100 mg Enoxaparin Sodium (Lovenox) 40 mg SC DAILY ANNA PRN Reason: Protocol Last Admin: 12/04/17 09:36 Dose: 40 mg Guaifenesin (Mucinex La) 600 mg PO BID [facility] Last Admin: 12/04/17 17:42 Dose: 600 mg Meropenem (Merrem Iv 1 Gm Premix) 50 mls @ 100 mls/hr IVPB Q8 ANNA PRN Reason: Protocol Stop: 12/06/17 16:58 Last Admin: 12/04/17 21:47 Dose: 100 mls/hr Lactobacillus Acidophilus (Bacid Acidophilus) 1 cap PO BID [facility] Last Admin: 12/04/17 17:41 Dose: 1 cap Midodrine (Proamatine) 5 mg PO BID [facility] Last Admin: 12/04/17 17:42 Dose: 5 mg Morphine Sulfate (Morphine) 1 mg IVP Q8 PRN PRN Reason: Pain, moderate (4-7) Last Admin: 12/04/17 20:01 Dose: 1 mg Ondansetron HCl (Zofran Inj) 4 mg IVP Q6H PRN PRN Reason: Nausea/Vomiting Last Admin: 11/30/17 13:00 Dose: 4 mg Pantoprazole Sodium (Protonix Ec Tab) 40 mg PO 0600 ANNA Last Admin: 12/04/17 05:33 Dose: 40 mg - Labs Labs: 12/04/17 06:30 12/04/17 06:30 PT 15.5 SECONDS (9.4-12.5) H 11/30/17 05:00 INR 1.34 11/30/17 05:00 APTT 28.1 Seconds (25.1-36.5) 11/30/17 05:00 Attending/Attestation - Attestation I have personally seen and examined this patient.: Yes I have fully participated in the care of the patient.: Yes I have reviewed all pertinent clinical information, including history, physical exam and plan: Yes Notes (Text): This is an addendum to GI progress report dictated by the GI Fellow.The patient was seen and examined earlier. Medical records, lab studies, imagings were reviewed. Last 24 hours events reviewed. Agreed with the above treatment plan as outlined in GI Fellow 's notes with the addition of the following Patient comfortable no complaints of abdominal pain On examination abdomen soft non tender hemoglobin stable Continue PPI GI workup after optimization 12/04/17 22:25
[2017-12-03] MEDS: Morphine 2 mg/ml ISec IVP PRN ×3 (08:38→21:48)
[2017-12-03] MEDS ORDERED: Potassium Chloride 20 mEq ER Tab PO ONE (09:11)
[2017-12-03] MEDS: Enoxaparin 40 mg Syringe SC SCH (09:39)
[2017-12-03] MEDS: Lactobacillus Acidophilus 500 MU Cap PO SCH ×2 (09:40→17:50)
[2017-12-03] MEDS: Linezolid 600 mg in D5W 300 ml 600 MG/300 ML BAG IVPB SCH ×2 (09:40→21:25)
--- NOTE | 2017-12-03 10:08 | CARD ---
APPROVED REPORT Date of service: 12/02/2017 EXAM: Two-dimensional and M-mode echocardiogram with Doppler and color Doppler. INDICATION PE 2D DIMENSIONS Left Atrium (2D)5.0 (1.6-4.0cm)IVSd1.1 (0.7-1.1cm) LVDd4.6 (3.9-5.9cm)PWd1.1 (0.7-1.1cm) LVDs3.1 (2.5-4.0cm)FS (%) 32.2 % LVEF (%)60.4 (>50%) M-Mode DIMENSIONS Aortic Root3.40 (2.2-3.7cm)Aortic Cusp Exc.2.20 (1.5-2.0cm) Aortic Valve AoV Peak Urezovfe648.0cm/Nory Peak GR.10mmHg Mitral Valve MV E Sqnlwmtc98.3cm/sMV A Wdwbgmeb14.4cm/sE/A ratio1.1 TDI E/Lateral E'0.0E/Medial E'0.0 Pulmonary Valve PV Peak Kmkpajwv17.2cm/sPV Peak Grad.1mmHg Tricuspid Valve TR Peak [id number]/sRAP [id number] Peak Gr.41mmHg [id number] LEFT VENTRICLE The left ventricle is normal size. There is normal left ventricular wall thickness. The left ventricular function is normal. The left ventricular ejection fraction is within the normal range. There is normal LV segmental wall motion. The left ventricular diastolic function is normal. RIGHT VENTRICLE The right ventricle is normal size. There is normal right ventricular wall thickness. The right ventricular systolic function is normal. ATRIA The left atrium is moderately dilated. The right atrium is moderately dilated. AORTIC VALVE The aortic valve is mildly thickened. There is trace to mild aortic regurgitation. There is no aortic valvular stenosis. MITRAL VALVE The mitral valve is normal in structure. There is no mitral valve regurgitation noted. There is no mitral valve stenosis. TRICUSPID VALVE The tricuspid valve is normal in structure. There is mild tricuspid regurgitation. There is moderate pulmonary hypertension. PULMONIC VALVE The pulmonary valve is normal in structure. There is trace pulmonic valvular regurgitation. GREAT VESSELS The aortic root is normal in size. The IVC is normal in size and collapses >50% with inspiration. PERICARDIAL EFFUSION There is no pericardial effusion. <Conclusion> The left ventricle is normal size. There is normal left ventricular wall thickness. The left ventricular function is normal. The left ventricular ejection fraction is within the normal range. There is normal LV segmental wall motion. There is trace to mild aortic regurgitation. There is moderate pulmonary hypertension.
--- NOTE | 2017-12-03 15:16 | CP.PCM.PN ---
Subjective - Date & Time of Evaluation Date of Evaluation: 12/03/17 Time of Evaluation: 09:05 - Subjective Subjective: Feeling better, less cough, breathing better, no nausea or diarrhea. Objective - Vital Signs/Intake and Output Vital Signs (last 24 hours): Temp Pulse Resp BP Pulse Ox 98.6 F 40 L 20 108/85 100 12/02/17 18:00 12/02/17 18:00 12/02/17 18:00 12/02/17 18:00 12/02/17 18:00 Intake and Output: 12/02/17 12/03/17 18:59 06:59 Intake Total 850 Output Total 550 Balance 300 - Medications Medications: Current Medications Acetaminophen (Tylenol 325mg Tab) 650 mg PO Q6H PRN PRN Reason: Fever >100.4 F OR mild pain Last Admin: 12/02/17 10:51 Dose: 650 mg Albuterol Sulfate (Albuterol 0.083% Inhal Bharati (2.5 Mg/3 Ml) Ud) 2.5 mg INH [id number] PRN PRN Reason: Shortness of Breath Last Admin: 12/02/17 16:20 Dose: 2.5 mg Enoxaparin Sodium (Lovenox) 40 mg SC DAILY ANNA PRN Reason: Protocol Last Admin: 12/02/17 10:53 Dose: 40 mg Meropenem (Merrem Iv 1 Gm Premix) 50 mls @ 100 mls/hr IVPB Q8 ANNA PRN Reason: Protocol Stop: 12/06/17 16:58 Last Admin: 12/03/17 05:57 Dose: 100 mls/hr Linezolid (Zyvox 600mg/300ml D5w) 600 mg in 300 mls @ 200 mls/hr IVPB Q12 ANNA PRN Reason: Protocol Stop: 12/06/17 22:01 Last Admin: 12/02/17 21:19 Dose: 200 mls/hr Doxycycline Hyclate 100 mg/ (Sodium Chloride) 100 mls @ 100 mls/hr IVPB Q12 ANNA PRN Reason: Protocol Last Admin: 12/02/17 21:43 Dose: 100 mls/hr Lactobacillus Acidophilus (Bacid Acidophilus) 1 cap PO BID ANNA Last Admin: 12/02/17 18:14 Dose: 1 cap Midodrine (Proamatine) 5 mg PO TID ANNA Morphine Sulfate (Morphine) 1 mg IVP Q4H PRN PRN Reason: Pain, moderate (4-7) Last Admin: 12/02/17 23:58 Dose: 1 mg Ondansetron HCl (Zofran Inj) 4 mg IVP Q6H PRN PRN Reason: Nausea/Vomiting Last Admin: 11/30/17 13:00 Dose: 4 mg Pantoprazole Sodium (Protonix Ec Tab) 40 mg PO 0600 ANNA Last Admin: 12/03/17 05:57 Dose: 40 mg - Labs Labs: 12/03/17 05:30 12/02/17 06:10 PT 15.5 SECONDS (9.4-12.5) H 11/30/17 05:00 INR 1.34 11/30/17 05:00 APTT 28.1 Seconds (25.1-36.5) 11/30/17 05:00 - Constitutional Appears: Chronically Ill - Head Exam Head Exam: NORMAL INSPECTION - ENT Exam ENT Exam: Mucous Membranes Moist - Neck Exam Neck Exam: absent: Meningismus - Respiratory Exam Respiratory Exam: Decreased Breath Sounds - Cardiovascular Exam Cardiovascular Exam: +S1, +S2 - GI/Abdominal Exam GI & Abdominal Exam: Soft. absent: Tenderness Assessment and Plan - Assessment and Plan (Free Text) Plan: Assessment Severe sepsis with acute hypoxic respiratory failure from severe right upper lobe, right lower lobe community-acquired pneumonia, but need to R/O TB in this patient with Rheumatoid arthritis on anti-TNF inihibitor bradycardia, etiology to be determined rheumatoid arthritis and has been taking anti-TNF inhibitor for the past 2 years (although intermittently) obesity with BMI 37 arthritis asthma Plan continue Zyvox, Merrem day 5 and Doxycycline still with bradycardia and somewhat prolonged QT on EKG Legionella Ag is negative will check sputum AFB x 3 (negative x 1) and Quantiferon TB test is indeterminate HIV test is non-reactive will continue to monitor clinically follow up Cardiology work up for the bradycardia
--- NOTE | 2017-12-03 17:27 | PN ---
DATE: 12/03/2017 FOLLOWUP SUBJECTIVE: The patient's shortness of breath has improved. The lowest reported heart rate was 40 and she is currently in the 50s with sinus rhythm on the monitor. The patient is afebrile. PHYSICAL EXAMINATION: VITAL SIGNS: Blood pressure 108/85, heart rate 48, temperature 98.6, respiration 20. HEENT: Pale conjunctivae. CHEST: Absent breath sounds over the right apex. HEART: S1 and S2 regular. ABDOMEN: Soft. EXTREMITIES: No edema. LABORATORY DATA: Today's hemoglobin and hematocrit 8.2 and 24.8, white count 8.7, platelet count 144,000. Today's SMA-7: Sodium 140, potassium 3.4, chloride 115, CO2 of 23, glucose 96, BUN 12, creatinine 0.7. Echocardiography study revealed normal left ventricular size, wall thickness and ejection fraction, trace to mild aortic insufficiency with moderate pulmonary hypertension. ASSESSMENT: 1. Right upper lobe pneumonia. 2. Sinus bradycardia. 3. Hypertension. 4. Moderate pulmonary hypertension. 5. Trace to mild aortic insufficiency. 6. Obesity. 7. Anemia with positive stool occult blood. RECOMMENDATIONS: Continue albuterol inhaler every 6 hours p.r.n. Continue subcutaneous Lovenox at 40 mg once a day. IV meropenem at 1 g every 8 hours, ProAmatine at 5 mg t.i.d., Zyvox a 600 mg intravenously every 12 hours. The patient can be transferred to telemetry. The results of lupus markers are still pending. Andres Casanova MD
[2017-12-04] MEDS: Morphine 2 mg/ml ISec IVP PRN ×3 (02:33→20:01)
[2017-12-04] MEDS: Meropenem IV 1 gm in NS 50 ML IVPB SCH ×3 (05:32→21:47)
[2017-12-04] MEDS: Pantoprazole 40 mg EC Tab PO SCH (05:33)
--- NOTE | 2017-12-04 06:02 | CP.PCM.PN ---
<Myranda Enrique - Last Filed: 12/04/17 17:39> Subjective - Date & Time of Evaluation Date of Evaluation: 12/04/17 Time of Evaluation: 07:00 - Subjective Subjective: PGY-1 Myranda Enrique D.O. Medicine progress note for Dr. Shelton's service: Patient was seen and examined this morning. No events reported over night. Patient is on isolation for TB work-up. Patient is sitting up in a chair. She says she is feeling much better. She is complaining of a persistent dry cough. Her abdominal pain has resolved and her appetite is improving. Objective - Vital Signs/Intake and Output Vital Signs (last 24 hours): Temp Pulse Resp BP Pulse Ox 98.7 F 47 L 23 95/40 L 100 12/04/17 00:00 12/04/17 01:30 12/04/17 01:30 12/04/17 01:01 12/04/17 00:30 Intake and Output: 12/03/17 12/04/17 18:59 06:59 Intake Total 400 670 Output Total 1300 Balance -900 670 - Medications Medications: Current Medications Acetaminophen (Tylenol 325mg Tab) 650 mg PO Q6H PRN PRN Reason: Fever >100.4 F OR mild pain Last Admin: 12/02/17 10:51 Dose: 650 mg Albuterol Sulfate (Albuterol 0.083% Inhal Bharati (2.5 Mg/3 Ml) Ud) 2.5 mg INH [id number] PRN PRN Reason: Shortness of Breath Last Admin: 12/02/17 16:20 Dose: 2.5 mg Enoxaparin Sodium (Lovenox) 40 mg SC DAILY ANNA PRN Reason: Protocol Last Admin: 12/03/17 09:39 Dose: 40 mg Meropenem (Merrem Iv 1 Gm Premix) 50 mls @ 100 mls/hr IVPB Q8 ANNA PRN Reason: Protocol Stop: 12/06/17 16:58 Last Admin: 12/04/17 05:32 Dose: 100 mls/hr Linezolid (Zyvox 600mg/300ml D5w) 600 mg in 300 mls @ 200 mls/hr IVPB Q12 ANNA PRN Reason: Protocol Stop: 12/06/17 22:01 Last Admin: 12/03/17 21:25 Dose: 200 mls/hr Doxycycline Hyclate 100 mg/ (Sodium Chloride) 100 mls @ 100 mls/hr IVPB Q12 ANNA PRN Reason: Protocol Last Admin: 12/03/17 21:26 Dose: 100 mls/hr Lactobacillus Acidophilus (Bacid Acidophilus) 1 cap PO BID [facility] Last Admin: 12/03/17 17:50 Dose: 1 cap Midodrine (Proamatine) 5 mg PO TID [facility] Last Admin: 12/03/17 17:50 Dose: 5 mg Morphine Sulfate (Morphine) 1 mg IVP Q4H PRN PRN Reason: Pain, moderate (4-7) Last Admin: 12/04/17 02:33 Dose: 1 mg Ondansetron HCl (Zofran Inj) 4 mg IVP Q6H PRN PRN Reason: Nausea/Vomiting Last Admin: 11/30/17 13:00 Dose: 4 mg Pantoprazole Sodium (Protonix Ec Tab) 40 mg PO 0600 [facility] Last Admin: 12/04/17 05:33 Dose: 40 mg - Labs Labs: 12/03/17 05:30 12/03/17 05:30 PT 15.5 SECONDS (9.4-12.5) H 11/30/17 05:00 INR 1.34 11/30/17 05:00 APTT 28.1 Seconds (25.1-36.5) 11/30/17 05:00 - Constitutional Appears: Non-toxic, No Acute Distress - Head Exam Head Exam: ATRAUMATIC, NORMAL INSPECTION, NORMOCEPHALIC - Eye Exam Eye Exam: EOMI, Normal appearance, PERRL - ENT Exam ENT Exam: Mucous Membranes Moist, Normal Exam - Neck Exam Neck Exam: Normal Inspection - Respiratory Exam Respiratory Exam: Rhonchi (RUL), NORMAL BREATHING PATTERN - Cardiovascular Exam Cardiovascular Exam: Bradycardia (40s), REGULAR RHYTHM, +S1, +S2 - GI/Abdominal Exam GI & Abdominal Exam: Soft, Normal Bowel Sounds. absent: Tenderness - Rectal Exam Rectal Exam: Deferred - Extremities Exam Extremities Exam: Pedal Edema (1+ b/l) - Back Exam Back Exam: NORMAL INSPECTION - Neurological Exam Neurological Exam: Alert, Awake, CN II-XII Intact, Oriented x3 Neuro motor strength exam: Left Upper Extremity: 5, Right Upper Extremity: 5, Left Lower Extremity: 5, Right Lower Extremity: 5 - Psychiatric Exam Psychiatric exam: Normal Affect, Normal Mood - Skin Skin Exam: Dry, Intact, Normal Color, Warm Assessment and Plan - Assessment and Plan (Free Text) Assessment: Patient is a 47 yo AA female with a history of RA on monoclonal Ab, asthma/COPD , gastric bypass with subsequent SBO, and iron deficiency anemia who presented with SOB, R chest wall pain, significant fatigue, and subjective fevers and chills. She was found to have significant leukocytosis. Imaging demonstrated RUL , RLL infiltrates and d/l atelectasis. UA is consistent with UTI. Patient was hypotensive with weak response to IVF, and was transferred to the ICU. She has not required pressors thus far. Patient was placed on isolation for concern of opportunistic infections 2/2 immunosuppression from monoclonal Ab use. Sputum was negative for AFB, and she is no longer on precautions. Patient is also transferred to telemetry. Plan: Severe sepsis 2/2 PNA and UTI, improving- h/o asthma/COPD - CT chest: Dense right upper lobe infiltrate with patchy infiltrate right lower lobe, borderline at the left lower lobe - CTA chest: No evidence of PE - CXR 11/30: Mild interval worsening of infiltrates at the right and left bases and mid left lung zone as well. Dense infiltrate unchanged right upper lobe. - Isolation precautions (TB) - Afebrile- Tmax 100 on 11/29 - Tylenol 650 mg PO q6hrs PRN fever - Lactate 3.3 - Procalcintonin 20.61->0.76 - Leukocytosis resolved (WBC 30s->17.5->8.7)- steroids discontinued - SBP 120s, maintain MAP >65 - Minodrine 5 mg PO TID- taper - IVF discontinued - Quantiferon indeterminate- f/u repeat - Blood Cx negative >4 days - Urine Cx- Strep anginosus (>100,000) sensitive to vanco and PCN, GNR (<10, 000), yeast - Sputum Cx- yeast - AFB x3 negative - Urine L. pneumophila Ag negative - HIV nonreactive - MRSA negative - Meropenem 1 g IV q8hrs (started 11/29) - Discontinue Linezolid - Change Doxycycline to oral 100 mg PO q12hrs (started 12/01) - Albuterol 2.5 mg INH q6hrs SOB - Mucinex 600 mg PO BID - Toradol 30 mg IV q6hrs PRN pain - Morphine 1 mg q8hrs PRN pain - LE Dopplers: no DVT - ICU consulted (Mark) - ID consulted (Damián)- suspect CAP but need to r/o TB, trend procal Bradycardia (HR 40s-50s), improving - EKG 12/01: marked sinus bradycardia, low voltage QRS - Echo: EF 60%, moderate pulm HTN - F/u lupus panel - Cardiology consulted (Edilberto)- atropine 0.5 mg IV if HR <30 H/o SBO s/p gastric bypass in 2001- N/V/abd pain presently resolved - CT A/P: Post gastric by pass operative changes are identified with no bowel obstruction appreciable or gross local bowel mesenteric reaction. No ascites or free air. Prior cholecystectomy. - Zofran 4 mg IV q6hrs PRN - Hepatitis panel negative - GI consulted (Lorrie)- suspect N/V 2/2 sepsis vs medication intolerance Iron deficiency anemia- current Hgb 8.4, no signs of active bleed - Iron low (31), TIBC wnl (325), % sat low (10), ferritin wnl (106) - B12 wnl (>1000), folate wnl (4.1) - FOBT positive - Peripheral smear- RBC microcytic hypochromic, few teardrop, occasional target cells, no schistocytes - Maintain Hgb >7, transfusion if necessary Low TSH (0.04)- repeat wnl (1.4) - Free T4 wnl (5.6)- repeat low (4) - T3 low (0.33) Hypokalemia - Repleted - Monitor daily Rheumatoid Arthritis- currently asymptomatic - Hold anti-TNF alpha - Work-up for opportunistic infections IVF: not indicated GI ppx: Protonix 40 mg PO daily VTE ppx: Lovenox 40 mg SC, SCDs Diet: heart healthy Code status: full code Case was discussed with attending, Dr. Shelton. <Arelis Shelton - Last Filed: 12/05/17 17:47> Objective - Vital Signs/Intake and Output Vital Signs (last 24 hours): Temp Pulse Resp BP Pulse Ox 99.8 F H 74 18 108/53 L 99 12/05/17 12:00 12/05/17 14:00 12/05/17 12:00 12/05/17 12:00 12/05/17 05:46 Intake and Output: 12/05/17 12/05/17 06:59 18:59 Intake Total 220 Balance 220 - Medications Medications: Current Medications Acetaminophen (Tylenol 325mg Tab) 650 mg PO Q6H PRN PRN Reason: Fever >100.4 F OR mild pain Last Admin: 12/05/17 13:36 Dose: 650 mg Albuterol Sulfate (Albuterol 0.083% Inhal Bharati (2.5 Mg/3 Ml) Ud) 2.5 mg INH [id number] ANNA Last Admin: 12/05/17 13:51 Dose: Not Given Bacitracin (Bacitracin) 1 ea TOP DAILY [facility] Last Admin: 12/05/17 13:25 Dose: 1 ea Doxycycline Hyclate (Doryx) 100 mg PO Q12 ANNA PRN Reason: Protocol Stop: 12/11/17 10:01 Last Admin: 12/05/17 09:46 Dose: 100 mg Enoxaparin Sodium (Lovenox) 40 mg SC DAILY ANNA PRN Reason: Protocol Last Admin: 12/05/17 09:46 Dose: 40 mg Guaifenesin (Mucinex La) 600 mg PO BID [facility] Last Admin: 12/05/17 09:46 Dose: 600 mg Meropenem (Merrem Iv 1 Gm Premix) 50 mls @ 100 mls/hr IVPB Q8 ANNA PRN Reason: Protocol Stop: 12/06/17 16:58 Last Admin: 12/05/17 13:25 Dose: 100 mls/hr Lactobacillus Acidophilus (Bacid Acidophilus) 1 cap PO BID ANNA Last Admin: 12/05/17 09:46 Dose: 1 cap Midodrine (Proamatine) 2.5 mg PO BID ANNA Ondansetron HCl (Zofran Inj) 4 mg IVP Q6H PRN PRN Reason: Nausea/Vomiting Last Admin: 11/30/17 13:00 Dose: 4 mg Pantoprazole Sodium (Protonix Ec Tab) 40 mg PO 0600 ANNA Last Admin: 12/05/17 06:38 Dose: 40 mg Tramadol HCl (Ultram) 50 mg PO Q8 PRN PRN Reason: Pain, moderate (4-7) Last Admin: 12/05/17 16:24 Dose: 50 mg - Labs Labs: 12/05/17 07:00 12/05/17 06:30 PT 15.5 SECONDS (9.4-12.5) H 11/30/17 05:00 INR 1.34 11/30/17 05:00 APTT 28.1 Seconds (25.1-36.5) 11/30/17 05:00 Attending/Attestation - Attestation I have personally seen and examined this patient.: Yes I have fully participated in the care of the patient.: Yes I have reviewed all pertinent clinical information, including history, physical exam and plan: Yes Notes (Text): Patient seen and examined by me at 10:30AM with resident 12/04/17. Case including HPI, physical exam, and assessment and plan discussed with resident. Agree with above with following additions/corrections. 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 Patient states that she is feeling ok. States she is having some shortness of breath. States breathing treatments are helping. Also has a cough. States that she is having right sided back/chest pain from the pneumonia. Paitent states she is eating much better. Abdominal "soreness" resolved. Nausea resolved. No vomiting. No fevers or chills. No headaches or dizziness. No dysuria. Patient is having bowel movements, no hematochezia or blood in stool. Physical exam: General: Awake and alert sitting up in bed in no acute distress HEENT: Normocephalic atraumatic. Extraocular muscles intact. Pupils equal reactive. No scleral icterus. Oropharynx is pink and moist. No pharyngeal erythema or exudate appreciated. Neck is supple. Cardiovascular: Bradycardic S1, S2. No murmurs, rubs, or gallops appreciated Pulmonary: Normal respiratory effort. No rhonchi, rales or wheezing appreciated. Gastrointestinal: Soft, nondistended. Nontender. Positive bowel sounds all 4 quadrants, no guarding. Musculoskeletal: Moves all extremities, no calf tenderness. Mild bilateral lower extremity pitting edema Central nervous system: AAO x 3. CN 2-12 grossly intact. Dermatologic: Skin warm and dry. 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 1. Severe sepsis. Resolving. Secondary to UTI and pneumonia. ID following, recommendations appreciated. Resolving. Urine culture positive for streptococcus anginosus. Blood culture with no growth.Quantiferon indeterminate. Sputum for AFB preliminary reads negative x 3. Patient taken off isolation. Sputum culture positive for yeast. Continue doxycycline and meropenem. Zyvox stopped. Lactic acidosis resolved. Procalcitonin was 20.61. Follow up repeat procalcitonin. Leukocytosis resolved. Patient remains afebrile. Chest CT per radiologist shows dense right upper lobe infiltrate with patchy infiltrate right lower lobe, boderline at left lower lobe. CTA chest per radiologist showed no pulmonary embolus, artifacts obscure long bases however; dense right upper lobe infiltrate and limited right lower lobe infiltrate reiterated and limited left lower lobe atelectasis reiterated. Chest xray 11/30/17 per radiologist showed mild interval worsening of infiltrates at the right and left bases and mid left lung zone as well, dense infiltrate unchanged right upper lobe. 2. Abdominal pain. Nausea and vomiting. Resolved. Continue Zofran. GI following , recommendations appreciated. CT abd/pelvis per radiologist showed post gastric bypass operative changes are identified with no bowel obstruction appreciable or gross local bowel mesenteric reaction; no ascites or free air; prior cholecystectomy. Hepatitis panel negative. 3. Stool for occult blood positive. H&H stable. GI following, recommendations appreciated. No intervention currently. Continue to monitor CBC. 4. Bradycardia. Unclear etiology. Continues to improve. Cardiology following, recommendations appreciated. 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 Lupus panel pending. Continue to monitor on telemetry. Taper midodrine. 5. Iron deficiency anemia. Patient get IV iron infusions as an outpatient. Stool for occult blood positive. H&H stable. Continue to monitor CBC. 6. Abnormal TSH. Repeat TSH within normal limits. Free T4 within normal limits. 7. Hypokalemia. Resolved. Continue to monitor. 8. Rheumatoid Arthritis. Home medications held for now secondary to acute infection. 9. GI/DVT prophylaxis. Protonix and Lovenox. Case was discussed in detail with the patient regarding current diagnosis and treatment plan.
[2017-12-04 07:20] LABS: BASO # 0.01 K/mm3 (0.0-2.0); BASO % 0.1 % (0.0-3.0); EOS # 0.3 (0.0-0.7); EOS % 4.5 % (1.5-5.0); GRAN # 3.32 (1.4-6.5); GRAN % 48.2 % (50.0-68.0); HEMOGLOBIN 8.3 g/dL (12.0-16.0); LYMPH # 1.8 (1.2-3.4); LYMPH % 25.9 % (22.0-35.0); MEAN CELL VOLUME 85.6 fl (80.0-105.0); MEAN CORPUSCULAR HEMOGLOBIN 27.8 pg (25.0-35.0); MEAN CORPUSCULAR HGB CONC 32.4 g/dl (31.0-37.0); MEAN PLATELET VOLUME 12.4 fl (7.0-11.0); MONO # 1.5 (0.1-0.6); MONO % 21.3 % (1.0-6.0); PLATELET COUNT 257 10^3/uL (120.0-450.0); RBC 2.99 10^6/uL (3.5-6.1); WHITE BLOOD COUNT 6.9 10^3/ul (4.5-11.0)
[2017-12-04 07:34] LABS: BLOOD UREA NITROGEN 6 mg/dL (7-21); CALCIUM 8.1 mg/dL (8.4-10.5); GFR NON-AFRICAN AMERICAN > 60
[2017-12-04] MEDS ORDERED: Potassium Chloride 20 mEq ER Tab PO ONE (08:00)
[2017-12-04] MEDS: Linezolid 600 mg in D5W 300 ml 600 MG/300 ML BAG IVPB SCH (09:35)
[2017-12-04] MEDS: Enoxaparin 40 mg Syringe SC SCH (09:36)
[2017-12-04] MEDS: Lactobacillus Acidophilus 500 MU Cap PO SCH ×2 (09:38→17:41)
[2017-12-04 10:06] LABS: EOSINOPHIL 7 % (0.0-3.0); LYMPHOCYTE 22 % (22.0-35.0); MONOCYTE 21 % (1.0-6.0); NEUTROPHIL 50 % (50.0-70.0); NUCLEATED RED BLOOD CELL 2 %
--- NOTE | 2017-12-04 11:32 | CP.PCM.PN ---
<Danny Del Toro - Last Filed: 12/04/17 12:21> Subjective - Date & Time of Evaluation Date of Evaluation: 12/04/17 Time of Evaluation: 11:32 - Subjective Subjective: GI Progress Note for Dr. Andrew's Service- Bryan, PGY2 Patient seen and assessed at bedside. No acute events overnight noted. Patient is no longer on airborne precautions. Patient denies any further abdominal pain or N/V at this time. Patient otherwise currently denies any fevers, chills, chest pain, SOB, abdominal pain, N/V/D/C, changes in urine output or any skin changes. Objective - Vital Signs/Intake and Output Vital Signs (last 24 hours): Temp Pulse Resp BP Pulse Ox 98.9 F 66 20 123/73 95 12/04/17 06:00 12/04/17 06:00 12/04/17 06:00 12/04/17 06:00 12/04/17 06:00 Intake and Output: 12/04/17 12/04/17 06:59 18:59 Intake Total 670 Balance 670 - Medications Medications: Current Medications Acetaminophen (Tylenol 325mg Tab) 650 mg PO Q6H PRN PRN Reason: Fever >100.4 F OR mild pain Last Admin: 12/02/17 10:51 Dose: 650 mg Albuterol Sulfate (Albuterol 0.083% Inhal Bharati (2.5 Mg/3 Ml) Ud) 2.5 mg INH [id number] ANNA Doxycycline Hyclate (Doryx) 100 mg PO Q12 ANNA PRN Reason: Protocol Stop: 12/11/17 10:01 Last Admin: 12/04/17 10:06 Dose: 100 mg Enoxaparin Sodium (Lovenox) 40 mg SC DAILY ANNA PRN Reason: Protocol Last Admin: 12/04/17 09:36 Dose: 40 mg Guaifenesin (Mucinex La) 600 mg PO BID ANNA Meropenem (Merrem Iv 1 Gm Premix) 50 mls @ 100 mls/hr IVPB Q8 ANNA PRN Reason: Protocol Stop: 12/06/17 16:58 Last Admin: 12/04/17 05:32 Dose: 100 mls/hr Lactobacillus Acidophilus (Bacid Acidophilus) 1 cap PO BID ANNA Last Admin: 12/04/17 09:38 Dose: 1 cap Midodrine (Proamatine) 5 mg PO BID [facility] Morphine Sulfate (Morphine) 1 mg IVP Q4H PRN PRN Reason: Pain, moderate (4-7) Last Admin: 12/04/17 02:33 Dose: 1 mg Ondansetron HCl (Zofran Inj) 4 mg IVP Q6H PRN PRN Reason: Nausea/Vomiting Last Admin: 11/30/17 13:00 Dose: 4 mg Pantoprazole Sodium (Protonix Ec Tab) 40 mg PO 0600 ANNA Last Admin: 12/04/17 05:33 Dose: 40 mg - Labs Labs: 12/04/17 06:30 12/04/17 06:30 PT 15.5 SECONDS (9.4-12.5) H 11/30/17 05:00 INR 1.34 11/30/17 05:00 APTT 28.1 Seconds (25.1-36.5) 11/30/17 05:00 - Constitutional Appears: Non-toxic, No Acute Distress - Head Exam Head Exam: ATRAUMATIC, NORMOCEPHALIC - Eye Exam Eye Exam: EOMI - ENT Exam ENT Exam: Mucous Membranes Moist - Neck Exam Neck Exam: Full ROM - Respiratory Exam Respiratory Exam: NORMAL BREATHING PATTERN. absent: Accessory Muscle Use, Respiratory Distress - Cardiovascular Exam Cardiovascular Exam: RRR, +S1, +S2 - GI/Abdominal Exam GI & Abdominal Exam: Soft, Normal Bowel Sounds. 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 GI was consulted for N/V and sepsis in the setting of history of gastric bypass surgery. Plan: -CT Abdomen/Pelvis reviewed and discussed with patient -Continue Zofran PRN for N/V -Heart Healthy Diet -Continue PPI daily -H/H currently stable at patients baseline with noted history of chronic anemia on iron supplementation -FOBT positive without hematochezia -Continue to monitor with daily CBC's -LFT's within normal limits; Hepatitis panel negative -Antibiotics per ID, all recommendations appreciated Patient seen and case discussed with attending, Dr. Andrew. <Brittney Andrew V - Last Filed: 12/04/17 22:23> Objective - Vital Signs/Intake and Output Vital Signs (last 24 hours): Temp Pulse Resp BP Pulse Ox 98 F 60 18 105/68 95 12/04/17 17:31 12/04/17 18:00 12/04/17 17:31 12/04/17 17:31 12/04/17 06:00 Intake and Output: 12/04/17 12/05/17 18:59 06:59 Intake Total 580 Output Total 600 Balance -20 - Medications Medications: Current Medications Acetaminophen (Tylenol 325mg Tab) 650 mg PO Q6H PRN PRN Reason: Fever >100.4 F OR mild pain Last Admin: 12/02/17 10:51 Dose: 650 mg Albuterol Sulfate (Albuterol 0.083% Inhal Bharati (2.5 Mg/3 Ml) Ud) 2.5 mg INH [id number] Last Admin: 12/04/17 19:33 Dose: 2.5 mg Doxycycline Hyclate (Doryx) 100 mg PO Q12 ANNA PRN Reason: Protocol Stop: 12/11/17 10:01 Last Admin: 12/04/17 21:47 Dose: 100 mg Enoxaparin Sodium (Lovenox) 40 mg SC DAILY ANNA PRN Reason: Protocol Last Admin: 12/04/17 09:36 Dose: 40 mg Guaifenesin (Mucinex La) 600 mg PO BID ANNA Last Admin: 12/04/17 17:42 Dose: 600 mg Meropenem (Merrem Iv 1 Gm Premix) 50 mls @ 100 mls/hr IVPB Q8 ANNA PRN Reason: Protocol Stop: 12/06/17 16:58 Last Admin: 12/04/17 21:47 Dose: 100 mls/hr Lactobacillus Acidophilus (Bacid Acidophilus) 1 cap PO BID ANNA Last Admin: 12/04/17 17:41 Dose: 1 cap Midodrine (Proamatine) 5 mg PO BID [facility] Last Admin: 12/04/17 17:42 Dose: 5 mg Morphine Sulfate (Morphine) 1 mg IVP Q8 PRN PRN Reason: Pain, moderate (4-7) Last Admin: 12/04/17 20:01 Dose: 1 mg Ondansetron HCl (Zofran Inj) 4 mg IVP Q6H PRN PRN Reason: Nausea/Vomiting Last Admin: 11/30/17 13:00 Dose: 4 mg Pantoprazole Sodium (Protonix Ec Tab) 40 mg PO 0600 ANNA Last Admin: 12/04/17 05:33 Dose: 40 mg - Labs Labs: 12/04/17 06:30 12/04/17 06:30 PT 15.5 SECONDS (9.4-12.5) H 11/30/17 05:00 INR 1.34 11/30/17 05:00 APTT 28.1 Seconds (25.1-36.5) 11/30/17 05:00 Attending/Attestation - Attestation I have personally seen and examined this patient.: Yes I have fully participated in the care of the patient.: Yes I have reviewed all pertinent clinical information, including history, physical exam and plan: Yes Notes (Text): This is an addendum to GI followup report dictated by the Facility Maintenance Supervisor. The patient was seen and evaluated earlier. Medical records, lab studies, imagings were reviewed. Last 24 hours events reviewed. Agreed with the above treatment plan as outlined in Facility Maintenance Supervisor 's notes with the addition of the following Patient was admitted with pneumonia sepsis CT findings were discussed with the patient On examination abdomen soft non tender hemoglobin stable status post gastric bypass EGD in 2016 reviewed will get the report of colonoscopy from [facility] Continue PPI Would need to repeat GI workup after above workup after optimization of the patient 12/04/17 22:20
[2017-12-04] MEDS: guaiFENesin 600 mg ER Tab PO SCH ×2 (11:40→17:42)
[2017-12-04] MEDS ORDERED: Albuterol 0.083% Inhal Sol (2.5 mg/3 mL) UD INH STA (12:38)
[2017-12-04] MEDS: Albuterol 0.083% Inhal Sol (2.5 mg/3 mL) UD INH SCH ×2 (13:08→19:33)
--- NOTE | 2017-12-04 15:03 | PN ---
DATE: 12/04/2017 SUBJECTIVE: The patient is still experiencing shortness of breath and dry cough. No retrosternal chest pain. PHYSICAL EXAMINATION VITAL SIGNS: Blood pressure 115/57, heart rate 64, temperature 98.4, respiration 18. HEENT: Pale conjunctivae. CHEST: Diffuse bilateral rhonchi. HEART: S1 and S2 regular. ABDOMEN: Soft. EXTREMITIES: No edema. LABORATORY DATA: Today's hemoglobin and hematocrit 8.3 and 25.6, white count 6.9, platelet count 257,000. Today's SMA-7; sodium 141, potassium 3.3, chloride 110, CO2 of 23, glucose 76, BUN 6, creatinine 0.5. ASSESSMENT: 1. Right upper lobe pneumonia. 2. Sinus bradycardia. 3. Hypertension. 4. Moderate pulmonary hypertension. 5. Obesity. 6. Anemia and positive stool occult blood. 7. Trace to mild aortic insufficiency. RECOMMENDATIONS: Continue albuterol inhaler every 6 hours, I requested one dose to be given now. Continue doxycycline 100 mg p.o. twice a day, Lovenox at 40 mg subcutaneously once a day, IV meropenem at 1 g every 8 hours, Mucinex LA 600 mg twice a day, ProAmatine 5 mg p.o. twice a day, Protonix 40 mg p.o. once a day. Lupus markers are still pending. Andres Casanova MD
--- NOTE | 2017-12-04 18:32 | PN ---
DATE: 12/04/2017 SUBJECTIVE: The patient was seen earlier today in 269, bed 2. No fevers and no chills. No nausea. PHYSICAL EXAMINATION VITAL SIGNS: Temperature is 98, blood pressure is 113/50, respiratory rate of 18. HEENT: Unremarkable. NECK: Supple. LUNGS: Decreased breath sounds. HEART: Normal S1 and S2. ABDOMEN: Soft and nontender. LABORATORY DATA: Reveals a white count of 6.9, hemoglobin of 8, and platelets of 257. Chemistries reveal a BUN of 6, creatinine of 0.5. Urinalysis is noted. Microbiology reveals AFBs are negative. ASSESSMENT AND PLAN: A 47-year-old female with severe sepsis, acute hypoxic respiratory failure with severe right upper lobe and right lower lobe community-acquired pneumonia. AFB smears are negative. The patient has never had any exposure to tuberculosis and she was born in [facility] and she has never lived outside of the [facility] and no risk factors for tuberculosis can discontinue the isolation. The patient has rheumatoid arthritis and anti-TNF inhibitor which would have been the only the risk factor. The patient has bradycardia. Etiology of the bradycardia is not clear in a patient with asthma and arthritis. Currently on meropenem. The patient's MRSA screen is negative. We will discontinue Zyvox and change the doxycycline to p.o. Today is day #6, will complete 7 days of antibiotics and QuantiFERON tuberculosis test is reported to be negative. HIV is negative. Case discussed with Dr. Shelton, primary team, and nursing staff. Huey Steel MD
[2017-12-05] MEDS: Albuterol 0.083% Inhal Sol (2.5 mg/3 mL) UD INH SCH ×4 (01:05→19:30)
--- NOTE | 2017-12-05 05:43 | CP.PCM.PN ---
<Myranda Enrique - Last Filed: 12/05/17 17:03> Subjective - Date & Time of Evaluation Date of Evaluation: 12/05/17 Time of Evaluation: 07:00 - Subjective Subjective: PGY-1 Myranda Enrique D.O. Medicine progress note for Dr. Shelton's service: Patient was seen and examined this morning. No events reported over night. Patient is no longer on isolation- ruled out TB. Patient is still complaining of SOB with R upper back pain. Her appetite has improved, and she does not feel weak. Her cough is improving with Mucinex. She does not feel lightheaded or dizzy upon standing and walking around. Objective - Vital Signs/Intake and Output Vital Signs (last 24 hours): Temp Pulse Resp BP Pulse Ox 99.5 F 78 18 101/55 L 93 L 12/05/17 00:01 12/05/17 05:14 12/05/17 00:01 12/05/17 00:01 12/05/17 00:01 Intake and Output: 12/04/17 12/05/17 18:59 06:59 Intake Total 580 Output Total 600 Balance -20 - Medications Medications: Current Medications Acetaminophen (Tylenol 325mg Tab) 650 mg PO Q6H PRN PRN Reason: Fever >100.4 F OR mild pain Last Admin: 12/02/17 10:51 Dose: 650 mg Albuterol Sulfate (Albuterol 0.083% Inhal Bharati (2.5 Mg/3 Ml) Ud) 2.5 mg INH [id number] ANNA Last Admin: 12/05/17 01:05 Dose: 2.5 mg Doxycycline Hyclate (Doryx) 100 mg PO Q12 ANNA PRN Reason: Protocol Stop: 12/11/17 10:01 Last Admin: 12/04/17 21:47 Dose: 100 mg Enoxaparin Sodium (Lovenox) 40 mg SC DAILY ANNA PRN Reason: Protocol Last Admin: 12/04/17 09:36 Dose: 40 mg Guaifenesin (Mucinex La) 600 mg PO BID [facility] Last Admin: 12/04/17 17:42 Dose: 600 mg Meropenem (Merrem Iv 1 Gm Premix) 50 mls @ 100 mls/hr IVPB Q8 ANNA PRN Reason: Protocol Stop: 12/06/17 16:58 Last Admin: 12/04/17 21:47 Dose: 100 mls/hr Lactobacillus Acidophilus (Bacid Acidophilus) 1 cap PO BID [facility] Last Admin: 12/04/17 17:41 Dose: 1 cap Midodrine (Proamatine) 5 mg PO BID [facility] Last Admin: 12/04/17 17:42 Dose: 5 mg Morphine Sulfate (Morphine) 1 mg IVP Q8 PRN PRN Reason: Pain, moderate (4-7) Last Admin: 12/04/17 20:01 Dose: 1 mg Ondansetron HCl (Zofran Inj) 4 mg IVP Q6H PRN PRN Reason: Nausea/Vomiting Last Admin: 11/30/17 13:00 Dose: 4 mg Pantoprazole Sodium (Protonix Ec Tab) 40 mg PO 0600 [facility] Last Admin: 12/04/17 05:33 Dose: 40 mg - Labs Labs: 12/04/17 06:30 12/04/17 06:30 PT 15.5 SECONDS (9.4-12.5) H 11/30/17 05:00 INR 1.34 11/30/17 05:00 APTT 28.1 Seconds (25.1-36.5) 11/30/17 05:00 - Constitutional Appears: Non-toxic, No Acute Distress - Head Exam Head Exam: ATRAUMATIC, NORMAL INSPECTION, NORMOCEPHALIC - Eye Exam Eye Exam: EOMI, Normal appearance, PERRL - ENT Exam ENT Exam: Mucous Membranes Moist, Normal Exam - Neck Exam Neck Exam: Normal Inspection - Respiratory Exam Respiratory Exam: Decreased Breath Sounds, NORMAL BREATHING PATTERN. absent: Rhonchi, Respiratory Distress - Cardiovascular Exam Cardiovascular Exam: REGULAR RHYTHM, +S1, +S2 - GI/Abdominal Exam GI & Abdominal Exam: Soft, Normal Bowel Sounds. absent: Tenderness - Rectal Exam Rectal Exam: Deferred - Extremities Exam Extremities Exam: Normal Inspection, Pedal Edema (1+). absent: Tenderness - Back Exam Back Exam: NORMAL INSPECTION - Neurological Exam Neurological Exam: Alert, Awake, CN II-XII Intact, Oriented x3 Neuro motor strength exam: Left Upper Extremity: 5, Right Upper Extremity: 5, Left Lower Extremity: 5, Right Lower Extremity: 5 - Psychiatric Exam Psychiatric exam: Normal Affect, Normal Mood - Skin Skin Exam: Dry, Intact, Normal Color, Warm Assessment and Plan - Assessment and Plan (Free Text) Assessment: Patient is a 47 yo AA female with a history of RA on monoclonal Ab, asthma/COPD , gastric bypass with subsequent SBO, and iron deficiency anemia who presented with SOB, R chest wall pain, significant fatigue, and subjective fevers and chills. She was found to have significant leukocytosis. Imaging demonstrated RUL , RLL infiltrates and d/l atelectasis. UA is consistent with UTI. Patient was hypotensive with weak response to IVF, and was transferred to the ICU. She has not required pressors thus far. Patient was placed on isolation for concern of opportunistic infections 2/2 immunosuppression from monoclonal Ab use. Sputum was negative for AFB, and she is no longer on precautions. Patient is transferred to telemetry. Plan: Severe sepsis 2/2 Pneumonia and UTI, improving- h/o asthma/COPD - CT chest: Dense right upper lobe infiltrate with patchy infiltrate right lower lobe, borderline at the left lower lobe - CTA chest: No evidence of PE - CXR 11/30: Mild interval worsening of infiltrates at the right and left bases and mid left lung zone as well. Dense infiltrate unchanged right upper lobe. - LE Dopplers: no DVT - Afebrile- Tmax 100 on 11/29 - Tylenol 650 mg PO q6hrs PRN fever - Lactate 3.3 - Procalcintonin 20.61->0.76 - Leukocytosis resolved (WBC 30s->17.5->6.7)- steroids discontinued - SBP 110s, maintain MAP >65 - Minodrine 2.5 mg PO BID- taper - IVF discontinued - Quantiferon indeterminate- f/u repeat - Blood Cx negative - Urine Cx- Strep anginosus (>100,000) sensitive to vanco and PCN, GNR (<10, 000), yeast - F/u repeat UA - Sputum Cx- yeast - AFB x3 negative - Urine L. pneumophila Ag negative - HIV nonreactive - MRSA negative - Meropenem 1 g IV q8hrs x7 days (started 11/29) - Doxycycline 100 mg PO q12hrs x7 days (started 12/01) - Albuterol 2.5 mg INH q6hrs SOB - Mucinex 600 mg PO BID - Toradol 30 mg IV q6hrs PRN pain - ICU consulted ([facility]) - ID consulted ([facility])- suspect CAP but need to r/o TB, trend procal Bradycardia, resolved (HR 70s) - EKG 12/01: marked sinus bradycardia, low voltage QRS - Echo: EF 60%, moderate pulm HTN - F/u lupus panel- negative thus far - [facility] consulted [facility] atropine 0.5 mg IV if HR <30 H/o SBO s/p gastric bypass in 2001- N/V/abd pain resolved - CT A/P: Post gastric by pass operative changes are identified with no bowel obstruction appreciable or gross local bowel mesenteric reaction. No ascites or free air. Prior cholecystectomy. - Zofran 4 mg IV q6hrs PRN nausea - Hepatitis panel negative - GI consulted ([facility])- suspect N/V 2/2 sepsis vs medication intolerance Iron deficiency anemia, stable- current Hgb 8.2, no signs of active bleed - Iron low (31), TIBC wnl (325), % sat low (10), ferritin wnl (106) - B12 wnl (>1000), folate wnl (4.1) - FOBT positive - Peripheral smear- RBC microcytic hypochromic, few teardrop, occasional target cells, no schistocytes - Maintain Hgb >7, transfusion if necessary Low TSH (0.04)- repeat wnl (1.4) - Free T4 wnl (1.42, 1.37) - T3 low (0.33) Hypokalemia - Repleted - Monitor daily Rheumatoid Arthritis- currently asymptomatic - Hold anti-TNF alpha - Work-up for opportunistic infections IVF: not indicated GI ppx: Protonix 40 mg PO daily VTE ppx: Lovenox 40 mg SC, SCDs Diet: heart healthy Code status: full code Case was discussed with attending, Dr. Shelton. <Arelis Shelton - Last Filed: 12/05/17 17:52> Objective - Vital Signs/Intake and Output Vital Signs (last 24 hours): Temp Pulse Resp BP Pulse Ox 99.8 F H 74 18 108/53 L 99 12/05/17 12:00 12/05/17 14:00 12/05/17 12:00 12/05/17 12:00 12/05/17 05:46 Intake and Output: 12/05/17 12/05/17 06:59 18:59 Intake Total 220 Balance 220 - Medications Medications: Current Medications Acetaminophen (Tylenol 325mg Tab) 650 mg PO Q6H PRN PRN Reason: Fever >100.4 F OR mild pain Last Admin: 12/05/17 13:36 Dose: 650 mg Albuterol Sulfate (Albuterol 0.083% Inhal Bharati (2.5 Mg/3 Ml) Ud) 2.5 mg INH [id number] [facility] Last Admin: 12/05/17 13:51 Dose: Not Given Bacitracin (Bacitracin) 1 ea TOP DAILY [facility] Last Admin: 12/05/17 13:25 Dose: 1 ea Doxycycline Hyclate (Doryx) 100 mg PO Q12 ANNA PRN Reason: Protocol Stop: 12/11/17 10:01 Last Admin: 12/05/17 09:46 Dose: 100 mg Enoxaparin Sodium (Lovenox) 40 mg SC DAILY ANNA PRN Reason: Protocol Last Admin: 12/05/17 09:46 Dose: 40 mg Guaifenesin (Mucinex La) 600 mg PO BID [facility] Last Admin: 12/05/17 09:46 Dose: 600 mg Meropenem (Merrem Iv 1 Gm Premix) 50 mls @ 100 mls/hr IVPB Q8 ANNA PRN Reason: Protocol Stop: 12/06/17 16:58 Last Admin: 12/05/17 13:25 Dose: 100 mls/hr Lactobacillus Acidophilus (Bacid Acidophilus) 1 cap PO BID [facility] Last Admin: 12/05/17 09:46 Dose: 1 cap Midodrine (Proamatine) 2.5 mg PO BID [facility] Ondansetron HCl (Zofran Inj) 4 mg IVP Q6H PRN PRN Reason: Nausea/Vomiting Last Admin: 11/30/17 13:00 Dose: 4 mg Pantoprazole Sodium (Protonix Ec Tab) 40 mg PO 0600 [facility] Last Admin: 12/05/17 06:38 Dose: 40 mg Tramadol HCl (Ultram) 50 mg PO Q8 PRN PRN Reason: Pain, moderate (4-7) Last Admin: 12/05/17 16:24 Dose: 50 mg - Labs Labs: 12/05/17 07:00 12/05/17 06:30 PT 15.5 SECONDS (9.4-12.5) H 11/30/17 05:00 INR 1.34 11/30/17 05:00 APTT 28.1 Seconds (25.1-36.5) 11/30/17 05:00 Attending/Attestation - Attestation I have personally seen and examined this patient.: Yes I have fully participated in the care of the patient.: Yes I have reviewed all pertinent clinical information, including history, physical exam and plan: Yes Notes (Text): Patient seen and examined by me at 10:05AM with resident. Case including HPI, physical exam, and assessment and plan discussed with resident. Agree with above with following additions/corrections. 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 Patient states that she is feeling better today. Patient states shortness of breath has improved and cough has also improved. Breathing treatments are helping. Still with right sided back/chest pain from the pneumonia. Pain medications are helping. No abdominal pain, nausea, or vomiting. No fevers or chills. No headaches or dizziness. No dysuria. Patient is having bowel movements , no hematochezia or blood in stool. Physical exam: General: Awake and alert sitting up in bed in no acute distress HEENT: Normocephalic atraumatic. Extraocular muscles intact. Pupils equal reactive. No scleral icterus. Oropharynx is pink and moist. No pharyngeal erythema or exudate appreciated. Neck is supple. Cardiovascular: Bradycardic S1, S2. No murmurs, rubs, or gallops appreciated Pulmonary: Normal respiratory effort. No rhonchi, rales or wheezing appreciated. Gastrointestinal: Soft, nondistended. Nontender. Positive bowel sounds all 4 quadrants, no guarding. Musculoskeletal: Moves all extremities, no calf tenderness. Mild bilateral lower extremity pitting edema Central nervous system: AAO x 3. CN 2-12 grossly intact. Dermatologic: Skin warm and dry. 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 1. Severe sepsis. Resolving. Secondary to UTI and pneumonia. ID following, recommendations appreciated. Continue doxycycline and meropenem. Zyvox stopped. Procalcitonin was 20.61. Repeat procalcitonin 0.76. Urine culture positive for streptococcus anginosus. Blood culture with no growth.Quantiferon indeterminate. Sputum for AFB preliminary reads negative x 3. Patient taken off isolation. Sputum culture positive for yeast. Lactic acidosis resolved. Leukocytosis resolved. Patient remains afebrile. Chest CT per radiologist shows dense right upper lobe infiltrate with patchy infiltrate right lower lobe , boderline at left lower lobe. CTA chest per radiologist showed no pulmonary embolus, artifacts obscure long bases however; dense right upper lobe infiltrate and limited right lower lobe infiltrate reiterated and limited left lower lobe atelectasis reiterated. Chest xray 11/30/17 per radiologist showed mild interval worsening of infiltrates at the right and left bases and mid left lung zone as well, dense infiltrate unchanged right upper lobe. 2. Abdominal pain. Nausea and vomiting. Resolved. Continue Zofran. GI following , recommendations appreciated. CT abd/pelvis per radiologist showed post gastric bypass operative changes are identified with no bowel obstruction appreciable or gross local bowel mesenteric reaction; no ascites or free air; prior cholecystectomy. Hepatitis panel negative. 3. Stool for occult blood positive. H&H stable. GI following, recommendations appreciated. No intervention currently. Continue to monitor CBC. 4. Bradycardia. Unclear etiology. Resolved today. Cardiology following, recommendations appreciated. 2D echo per vessel captain shows left ventricular normal size, normal left ventricular wall thickness, left ventricular function is normal, left ventricular ejection fraction is within normal range, normal LV segmental wall motion, moderate pulmonary hypertension, mild aortic regurgitation. Lupus panel pending. Continue to monitor on telemetry. Continue to taper midodrine. 5. Iron deficiency anemia. Patient gets IV iron infusions as an outpatient. Stool for occult blood positive. H&H stable. Continue to monitor CBC. 6. Abnormal TSH. Repeat TSH within normal limits. Free T4 within normal limits. 7. Hypokalemia. Resolved. Continue to monitor. 8. Rheumatoid Arthritis. Home medications held for now secondary to acute infection. 9. GI/DVT prophylaxis. Protonix and Lovenox. Case was discussed in detail with the patient regarding current diagnosis and treatment plan.
[2017-12-05] MEDS: Meropenem IV 1 gm in NS 50 ML IVPB SCH ×3 (06:37→22:17)
[2017-12-05] MEDS: Pantoprazole 40 mg EC Tab PO SCH (06:38)
[2017-12-05] MEDS: Morphine 2 mg/ml ISec IVP PRN (06:39)
[2017-12-05 07:16] LABS: BASO # 0.01 K/mm3 (0.0-2.0); BASO % 0.1 % (0.0-3.0); EOS # 0.4 (0.0-0.7); EOS % 6.4 % (1.5-5.0); GRAN # 3.48 (1.4-6.5); GRAN % 51.8 % (50.0-68.0); HEMOGLOBIN 8.2 g/dL (12.0-16.0); LYMPH # 1.5 (1.2-3.4); LYMPH % 22.9 % (22.0-35.0); MEAN CELL VOLUME 86.3 fl (80.0-105.0); MEAN CORPUSCULAR HGB CONC 32.4 g/dl (31.0-37.0); MEAN PLATELET VOLUME 11.6 fl (7.0-11.0); MONO # 1.3 (0.1-0.6); MONO % 18.8 % (1.0-6.0); RBC 2.93 10^6/uL (3.5-6.1); RED CELL DISTRIBUTION WIDTH 16.1 % (11.5-14.5); WHITE BLOOD COUNT 6.7 10^3/ul (4.5-11.0)
[2017-12-05 07:33] LABS: BLOOD UREA NITROGEN 3 mg/dL (7-21); GFR NON-AFRICAN AMERICAN > 60
--- NOTE | 2017-12-05 08:45 | CP.PCM.PN ---
<Danny Del Toro - Last Filed: 12/05/17 14:23> Subjective - Date & Time of Evaluation Date of Evaluation: 12/05/17 Time of Evaluation: 08:44 - Subjective Subjective: GI Progress Note for Dr. Andrew's Service- Bryan, PGY2 Patient seen and assessed at bedside. No acute events overnight noted. Patient notes one normal caliber/normal color BM this AM. Patient otherwise currently denies any fevers, chills, chest pain, SOB, abdominal pain, N/V/D/C, changes in urine output or any skin changes. Objective - Vital Signs/Intake and Output Vital Signs (last 24 hours): Temp Pulse Resp BP Pulse Ox 99.6 F 77 18 112/73 99 12/05/17 05:46 12/05/17 05:46 12/05/17 05:46 12/05/17 05:46 12/05/17 05:46 Intake and Output: 12/05/17 12/05/17 06:59 18:59 Intake Total 220 Balance 220 - Medications Medications: Current Medications Acetaminophen (Tylenol 325mg Tab) 650 mg PO Q6H PRN PRN Reason: Fever >100.4 F OR mild pain Last Admin: 12/02/17 10:51 Dose: 650 mg Albuterol Sulfate (Albuterol 0.083% Inhal Bharati (2.5 Mg/3 Ml) Ud) 2.5 mg INH [id number] ANNA Last Admin: 12/05/17 08:06 Dose: 2.5 mg Doxycycline Hyclate (Doryx) 100 mg PO Q12 ANNA PRN Reason: Protocol Stop: 12/11/17 10:01 Last Admin: 12/04/17 21:47 Dose: 100 mg Enoxaparin Sodium (Lovenox) 40 mg SC DAILY ANNA PRN Reason: Protocol Last Admin: 12/04/17 09:36 Dose: 40 mg Guaifenesin (Mucinex La) 600 mg PO BID ANNA Last Admin: 12/04/17 17:42 Dose: 600 mg Meropenem (Merrem Iv 1 Gm Premix) 50 mls @ 100 mls/hr IVPB Q8 ANNA PRN Reason: Protocol Stop: 12/06/17 16:58 Last Admin: 12/05/17 06:37 Dose: 100 mls/hr Lactobacillus Acidophilus (Bacid Acidophilus) 1 cap PO BID [facility] Last Admin: 12/04/17 17:41 Dose: 1 cap Midodrine (Proamatine) 5 mg PO BID [facility] Last Admin: 12/04/17 17:42 Dose: 5 mg Morphine Sulfate (Morphine) 1 mg IVP Q8 PRN PRN Reason: Pain, moderate (4-7) Last Admin: 12/05/17 06:39 Dose: 1 mg Ondansetron HCl (Zofran Inj) 4 mg IVP Q6H PRN PRN Reason: Nausea/Vomiting Last Admin: 11/30/17 13:00 Dose: 4 mg Pantoprazole Sodium (Protonix Ec Tab) 40 mg PO 0600 [facility] Last Admin: 12/05/17 06:38 Dose: 40 mg - Labs Labs: 12/05/17 07:00 12/05/17 06:30 PT 15.5 SECONDS (9.4-12.5) H 11/30/17 05:00 INR 1.34 11/30/17 05:00 APTT 28.1 Seconds (25.1-36.5) 11/30/17 05:00 - Constitutional Appears: Non-toxic, No Acute Distress - Head Exam Head Exam: ATRAUMATIC, NORMOCEPHALIC - Eye Exam Eye Exam: EOMI - ENT Exam ENT Exam: Mucous Membranes Moist - Neck Exam Neck Exam: Full ROM - Respiratory Exam Respiratory Exam: NORMAL BREATHING PATTERN. absent: Accessory Muscle Use, Respiratory Distress - Cardiovascular Exam Cardiovascular Exam: RRR, +S1, +S2 - GI/Abdominal Exam GI & Abdominal Exam: Soft, Normal Bowel Sounds. 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 GI was consulted for N/V and sepsis in the setting of history of gastric bypass surgery. Plan: -CT Abdomen/Pelvis reviewed and discussed with patient -FOBT positive without hematochezia -H/H currently stable at patients baseline with noted history of chronic anemia -Continue to monitor with daily CBC's -LFT's within normal limits; Hepatitis panel negative -Heart Healthy Diet -Continue PPI daily -Continue Zofran PRN for N/V -Antibiotics per ID, all recommendations appreciated GI Disposition: Patient to have repeat GI workup once medical optimization has been achieved. In the mean time, we will obtain records from [facility] [place] for previous colonoscopy. Patient seen and case discussed with attending, Dr. Andrew. <Brittney Andrew V - Last Filed: 12/05/17 23:25> Objective - Vital Signs/Intake and Output Vital Signs (last 24 hours): Temp Pulse Resp BP Pulse Ox 99.7 F H 59 L 18 113/58 L 99 12/05/17 18:00 12/05/17 18:00 12/05/17 18:00 12/05/17 18:00 12/05/17 05:46 Intake and Output: 12/05/17 12/06/17 18:59 06:59 Intake Total 50 1140 Output Total 500 Balance 50 640 - Medications Medications: Current Medications Acetaminophen (Tylenol 325mg Tab) 650 mg PO Q6H PRN PRN Reason: Fever >100.4 F OR mild pain Last Admin: 12/05/17 13:36 Dose: 650 mg Albuterol Sulfate (Albuterol 0.083% Inhal Bharati (2.5 Mg/3 Ml) Ud) 2.5 mg INH [id number] ANNA Last Admin: 12/05/17 19:30 Dose: 2.5 mg Bacitracin (Bacitracin) 1 ea TOP DAILY ANNA Last Admin: 12/05/17 13:25 Dose: 1 ea Doxycycline Hyclate (Doryx) 100 mg PO Q12 ANNA PRN Reason: Protocol Stop: 12/11/17 10:01 Last Admin: 12/05/17 22:19 Dose: 100 mg Enoxaparin Sodium (Lovenox) 40 mg SC DAILY ANNA PRN Reason: Protocol Last Admin: 12/05/17 09:46 Dose: 40 mg Guaifenesin (Mucinex La) 600 mg PO BID ANNA Last Admin: 12/05/17 18:53 Dose: 600 mg Meropenem (Merrem Iv 1 Gm Premix) 50 mls @ 100 mls/hr IVPB Q8 ANNA PRN Reason: Protocol Stop: 12/06/17 16:58 Last Admin: 12/05/17 22:17 Dose: 100 mls/hr Lactobacillus Acidophilus (Bacid Acidophilus) 1 cap PO BID ANNA Last Admin: 12/05/17 18:53 Dose: 1 cap Midodrine (Proamatine) 2.5 mg PO BID [facility] Last Admin: 12/05/17 18:53 Dose: 2.5 mg Ondansetron HCl (Zofran Inj) 4 mg IVP Q6H PRN PRN Reason: Nausea/Vomiting Last Admin: 11/30/17 13:00 Dose: 4 mg Pantoprazole Sodium (Protonix Ec Tab) 40 mg PO 0600 [facility] Last Admin: 12/05/17 06:38 Dose: 40 mg Tramadol HCl (Ultram) 50 mg PO Q8 PRN PRN Reason: Pain, moderate (4-7) Last Admin: 12/05/17 16:24 Dose: 50 mg - Labs Labs: 12/05/17 07:00 12/05/17 06:30 PT 15.5 SECONDS (9.4-12.5) H 11/30/17 05:00 INR 1.34 11/30/17 05:00 APTT 28.1 Seconds (25.1-36.5) 11/30/17 05:00 Attending/Attestation - Attestation Notes (Text): This is an addendum to GI followup report dictated by the Shift Supervisor. The patient was seen and evaluated earlier. Medical records, lab studies, imagings were reviewed. Last 24 hours events reviewed. Agreed with the above treatment plan as outlined in Shift Supervisor 's notes with the addition of the following discussed with the patient and the patients mother who was at bedside explained about the findings and follow up GI recommendations would defer endoscopic procedures now in view of pneumonia Patient would need EGD and colonscopy as an outpatient Advised to followup with her professional skateboarder post discharge 12/05/17 23:23
[2017-12-05] MEDS ORDERED: Potassium Chloride 20 mEq ER Tab PO ONE (08:57)
--- NOTE | 2017-12-05 09:03 | CP.PCM.PN ---
Subjective - Date & Time of Evaluation Date of Evaluation: 12/05/17 Time of Evaluation: 09:15 - Subjective Subjective: Pgy3 ID Progress note for Dr. Gonzalez Patient seen and examined at bedside. No acute events overnight. Patient denied acute complaints of headache, dizziness, fever, palpitations, SOB, cough, abd pain, nausea, vomiting, bowel/bladder complaints, pain in her legs b/l. Patient complained of some right sided pleuritic chest pain every time she took a deep breath and some mild b/l LE swelling. Objective - Vital Signs/Intake and Output Vital Signs (last 24 hours): Temp Pulse Resp BP Pulse Ox 99.6 F 77 18 112/73 99 12/05/17 05:46 12/05/17 05:46 12/05/17 05:46 12/05/17 05:46 12/05/17 05:46 Intake and Output: 12/05/17 12/05/17 06:59 18:59 Intake Total 220 Balance 220 - Medications Medications: Current Medications Acetaminophen (Tylenol 325mg Tab) 650 mg PO Q6H PRN PRN Reason: Fever >100.4 F OR mild pain Last Admin: 12/02/17 10:51 Dose: 650 mg Albuterol Sulfate (Albuterol 0.083% Inhal Bharati (2.5 Mg/3 Ml) Ud) 2.5 mg INH [id number] [facility] Last Admin: 12/05/17 08:06 Dose: 2.5 mg Doxycycline Hyclate (Doryx) 100 mg PO Q12 ANNA PRN Reason: Protocol Stop: 12/11/17 10:01 Last Admin: 12/04/17 21:47 Dose: 100 mg Enoxaparin Sodium (Lovenox) 40 mg SC DAILY ANNA PRN Reason: Protocol Last Admin: 12/04/17 09:36 Dose: 40 mg Guaifenesin (Mucinex La) 600 mg PO BID [facility] Last Admin: 12/04/17 17:42 Dose: 600 mg Meropenem (Merrem Iv 1 Gm Premix) 50 mls @ 100 mls/hr IVPB Q8 ANNA PRN Reason: Protocol Stop: 12/06/17 16:58 Last Admin: 12/05/17 06:37 Dose: 100 mls/hr Lactobacillus Acidophilus (Bacid Acidophilus) 1 cap PO BID [facility] Last Admin: 12/04/17 17:41 Dose: 1 cap Midodrine (Proamatine) 5 mg PO BID [facility] Last Admin: 12/04/17 17:42 Dose: 5 mg Morphine Sulfate (Morphine) 1 mg IVP Q8 PRN PRN Reason: Pain, moderate (4-7) Last Admin: 12/05/17 06:39 Dose: 1 mg Ondansetron HCl (Zofran Inj) 4 mg IVP Q6H PRN PRN Reason: Nausea/Vomiting Last Admin: 11/30/17 13:00 Dose: 4 mg Pantoprazole Sodium (Protonix Ec Tab) 40 mg PO 0600 [facility] Last Admin: 12/05/17 06:38 Dose: 40 mg - Labs Labs: 12/05/17 07:00 12/05/17 06:30 PT 15.5 SECONDS (9.4-12.5) H 11/30/17 05:00 INR 1.34 11/30/17 05:00 APTT 28.1 Seconds (25.1-36.5) 11/30/17 05:00 - Constitutional Appears: Non-toxic, No Acute Distress - Head Exam Head Exam: ATRAUMATIC, NORMAL INSPECTION, NORMOCEPHALIC - Eye Exam Eye Exam: EOMI, Normal appearance. absent: Conjunctival injection, Scleral icterus - ENT Exam ENT Exam: Mucous Membranes Moist - Neck Exam Neck Exam: Full ROM - Respiratory Exam Respiratory Exam: Decreased Breath Sounds, NORMAL BREATHING PATTERN. absent: Accessory Muscle Use, Respiratory Distress - Cardiovascular Exam Cardiovascular Exam: REGULAR RHYTHM, +S1, +S2 - GI/Abdominal Exam GI & Abdominal Exam: Soft, Normal Bowel Sounds. 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 ID consulted for sepsis secondary to pna. Plan: -Severe sepsis with acute hypoxic respiratory failure from severe right upper lobe, right lower lobe CAP -In light of patient's hx of RA on anti-TNFi needed to r/o TB AFB negative x 3 -continue Doxy and Merrem for 7 days total -Legionella Ag is negative -Quantiferon TB test is indeterminate -HIV test is non-reactive -continue management as per primary Discussed with Dr. Carlos Loza PGY3
[2017-12-05] MEDS: Enoxaparin 40 mg Syringe SC SCH (09:46)
[2017-12-05] MEDS: Lactobacillus Acidophilus 500 MU Cap PO SCH ×2 (09:46→18:53)
[2017-12-05] MEDS: guaiFENesin 600 mg ER Tab PO SCH ×2 (09:46→18:53)
[2017-12-05] MEDS: Bacitracin 500 Units/gm Oint Foilpak UD TOP SCH (13:25)
--- NOTE | 2017-12-05 17:17 | PN ---
DATE: 12/05/2017 FOLLOWUP SUBJECTIVE: The patient denies chest pain. She felt short of breath, experiencing productive cough today. PHYSICAL EXAMINATION VITAL SIGNS: Blood pressure 108/53, heart rate 69, temperature 99.8, and respirations 18. HEENT: Pale conjunctivae. CHEST: Bilateral rhonchi. HEART: S1 and S2, regular. ABDOMEN: Soft. EXTREMITIES: No edema. LABORATORY DATA: Hemoglobin and hematocrit today 8.1 and 25.3, white count and platelet count are within normal limits. Today's SMA-7; sodium of 140, potassium 3.4, chloride 108, CO2 of 27. Glucose 84. BUN 3, creatinine 0.6. Blood culture is negative after 5 days. ASSESSMENT: 1. Right upper lobe pneumonia. 2. Sinus bradycardia. 3. Streptococcus anginosus urinary tract infection. 4. Hypokalemia. RECOMMENDATIONS: Continue albuterol inhaler every 6 hours. Continue doxycycline 100 mg p.o. twice a day, subcutaneous Lovenox 20 mg once a day, IV meropenem at 1 g every 8 hours, ProAmatine 2.5 mg twice a day. The patient did receive K-Dur 20 mEq orally today as a supplement for her hypokalemia. I recommend performing a followup chest x-ray. Andres Casanova MD
[2017-12-05] MEDS ORDERED: Morphine 2 mg/ml ISec IVP ONE (19:44)
[2017-12-06] MEDS: Albuterol 0.083% Inhal Sol (2.5 mg/3 mL) UD INH SCH ×4 (01:28→19:51)
[2017-12-06] MEDS: Pantoprazole 40 mg EC Tab PO SCH (05:22)
[2017-12-06] MEDS: Meropenem IV 1 gm in NS 50 ML IVPB SCH (05:22)
[2017-12-06 07:48] LABS: BASO # 0.01 K/mm3 (0.0-2.0); BASO % 0.1 % (0.0-3.0); EOS # 0.7 (0.0-0.7); EOS % 8.1 % (1.5-5.0); GRAN # 4.45 (1.4-6.5); HEMOGLOBIN 8.2 g/dL (12.0-16.0); LYMPH # 1.8 (1.2-3.4); LYMPH % 22.3 % (22.0-35.0); MEAN CELL VOLUME 86.9 fl (80.0-105.0); MEAN CORPUSCULAR HEMOGLOBIN 28.3 pg (25.0-35.0); MEAN CORPUSCULAR HGB CONC 32.5 g/dl (31.0-37.0); MEAN PLATELET VOLUME 11.1 fl (7.0-11.0); MONO # 1.3 (0.1-0.6); MONO % 15.5 % (1.0-6.0); RBC 2.9 10^6/uL (3.5-6.1); RED CELL DISTRIBUTION WIDTH 16.1 % (11.5-14.5); WHITE BLOOD COUNT 8.3 10^3/ul (4.5-11.0)
[2017-12-06 08:19] LABS: BLOOD UREA NITROGEN < 2 mg/dL (7-21); CALCIUM 7.8 mg/dL (8.4-10.5); GFR NON-AFRICAN AMERICAN > 60
[2017-12-06] MEDS ORDERED: Potassium Chloride 20 mEq ER Tab PO ONE (08:39)
[2017-12-06] MEDS: Bacitracin 500 Units/gm Oint Foilpak UD TOP SCH (09:50)
[2017-12-06] MEDS: Lactobacillus Acidophilus 500 MU Cap PO SCH ×2 (09:51→17:07)
[2017-12-06] MEDS: Enoxaparin 40 mg Syringe SC SCH (09:51)
--- NOTE | 2017-12-06 10:11 | PN ---
DATE: 12/06/2017 SUBJECTIVE: The patient is in bed, in no acute distress, nontoxic. PHYSICAL EXAMINATION: VITAL SIGNS: On exam, temperature is 99, blood pressure is 105/60, respiratory rate of 18, heart rate of 60. HEENT: Examination of HEENT is unremarkable. NECK: Supple. LUNGS: Have decreased breath sounds. HEART: Normal S1, S2. ABDOMEN: Soft, nontender. LABORATORY DATA: Laboratory examination reveals a white count of 8.3, hemoglobin of 8, platelets of 226. Chemistries reveals a BUN of 2, creatinine 0.6. Urinalysis is noted. RONDA titer is noted to . Complement levels are noted. Microbiology reveals the mycobacteria cultures are negative. No acid-fast is seen on the smear. The cultures are pending. Blood cultures are no growth. Review of orders reveals the patient to be on p.o. doxycycline, IV meropenem. ASSESSMENT AND PLAN: A 47-year-old female with asthma. Admitted with severe sepsis with acute hypoxic respiratory failure and a right upper lobe, right lower lobe community-acquired pneumonia and on meropenem and doxycycline. Vasculitis workup. Rheumatic arthritis. Anti-TNF inhibitor. Today is day #8 of antibiotics. The patient has had adequate antibiotics. We will discontinue the antibiotics. She will follow up with general helper. Huey Steel MD
[2017-12-06] MEDS: guaiFENesin 600 mg ER Tab PO SCH ×2 (12:11→17:14)
[2017-12-06 12:38] LABS: PH,URINE 6.5 (4.7-8.0); URINE APPEARANCE CLEAR (CLEAR); URINE BILIRUBIN NEGATIVE (NEGATIVE); URINE BLOOD TRACE-LYSED (NEGATIVE); URINE COLOR LIGHT YELLOW (YELLOW); URINE GLUCOSE (UA) NEGATIVE (NEGATIVE); URINE LEUKOCYTE ESTERASE NEGATIVE Leu/uL (NEGATIVE); URINE PROTEIN NEGATIVE mg/dL (<30 mg/dL); URINE UROBILINOGEN 0.2 E.U./dL (<1 E.U./dL)
--- NOTE | 2017-12-06 13:09 | PN ---
DATE: 12/06/2017 FOLLOWUP SUBJECTIVE: The patient's shortness of breath improved. She is still experiencing productive cough. Rhythm is normal sinus with periods of mild sinus bradycardia. PHYSICAL EXAMINATION: VITAL SIGNS: Blood pressure 105/56, heart rate 59, temperature 98.6, respirations 18. HEENT: Pale conjunctivae. CHEST: Bilateral rhonchi. HEART: S1 and S2 regular. EXTREMITIES: No edema. LABORATORY DATA: Today's hemoglobin and hematocrit 8.2 and 25.2. White count 8.3, platelet count 126,000. Today's SMA-7: Sodium 141, potassium 3.5, chloride 105, CO2 of 28, glucose 70, BUN less than 2, creatinine 0.6. RONDA screen is positive. Rheumatoid factor less than 14. RONDA titer is more than 1:1280. Chest x-ray revealed resolution of right upper lobe pneumonia with new right lower lobe infiltrate. ASSESSMENT: 1. Improved right upper lobe pneumonia. 2. Right lower lobe pneumonia. 3. Consider lupus erythematosus. 4. Anemia. 5. Improved sinus bradycardia. RECOMMENDATIONS: Continue subcutaneous Lovenox 40 mg daily, Mucinex 600 mg twice a day, lactobacillus acidophilus one capsule twice a day. The patient did receive potassium 20 mEq orally today and I will follow repeat venous Doppler of the lower extremity that was performed today. Andres Casanova MD
--- NOTE | 2017-12-06 13:18 | RAD ---
Date of service: 12/06/2017 HISTORY: PNA COMPARISON: 11/30/2017 TECHNIQUE: Chest PA and lateral FINDINGS: LUNGS: No active pulmonary disease. PLEURA: No significant pleural effusion identified. No pneumothorax apparent. CARDIOVASCULAR: Normal. OSSEOUS STRUCTURES: No significant abnormalities. VISUALIZED UPPER ABDOMEN: Normal. OTHER FINDINGS: None. IMPRESSION: No active disease.
[2017-12-06 13:37] LABS: URINE RBC 0 - 2 /hpf (0-2)
--- NOTE | 2017-12-06 14:27 | RAD ---
Date of service: 12/06/2017 PROCEDURE: Left Foot Radiographs. HISTORY: pain, swelling COMPARISON: None. FINDINGS: BONES: There is no acute fracture. There is an old fracture deformity of the 5th metatarsal JOINTS: Normal. SOFT TISSUES: Normal. OTHER FINDINGS: Small calcaneal spurs IMPRESSION: No acute findings
--- NOTE | 2017-12-06 14:58 | CP.PCM.PN ---
<Myranda Enrique - Last Filed: 12/06/17 15:09> Subjective - Date & Time of Evaluation Date of Evaluation: 12/06/17 Time of Evaluation: 08:45 - Subjective Subjective: PGY-1 Myranda Enrique D.O. Medicine progress note for Dr. Shelton's service: Patient was seen and examined this morning. No events reported over night. Patient is complaining of swelling in her L foot and leg. Her SOB and cough is improving with breathing treatments and Mucinex. Her appetite has improved, and she does not feel weak. She does not feel lightheaded or dizzy upon standing and walking around. She denies diarrhea or constipation. Objective - Vital Signs/Intake and Output Vital Signs (last 24 hours): Temp Pulse Resp BP Pulse Ox 98.6 F 107 H 18 105/56 L 96 12/06/17 06:00 12/06/17 10:00 12/06/17 06:00 12/06/17 06:00 12/06/17 06:00 Intake and Output: 12/06/17 12/06/17 06:59 18:59 Intake Total 1500 Output Total 503 Balance 997 - Medications Medications: Current Medications Acetaminophen (Tylenol 325mg Tab) 650 mg PO Q6H PRN PRN Reason: Fever >100.4 F OR mild pain Last Admin: 12/05/17 13:36 Dose: 650 mg Albuterol Sulfate (Albuterol 0.083% Inhal Bharati (2.5 Mg/3 Ml) Ud) 2.5 mg INH [id number] [facility] Last Admin: 12/06/17 13:41 Dose: 2.5 mg Bacitracin (Bacitracin) 1 ea TOP DAILY ANNA Last Admin: 12/06/17 09:50 Dose: 1 ea Enoxaparin Sodium (Lovenox) 40 mg SC DAILY ANNA PRN Reason: Protocol Last Admin: 12/06/17 09:51 Dose: 40 mg Guaifenesin (Mucinex La) 600 mg PO BID [facility] Last Admin: 12/06/17 12:11 Dose: 600 mg Lactobacillus Acidophilus (Bacid Acidophilus) 1 cap PO BID ANNA Last Admin: 12/06/17 09:51 Dose: 1 cap Midodrine (Proamatine) 2.5 mg PO BID [facility] Last Admin: 12/05/17 18:53 Dose: 2.5 mg Ondansetron HCl (Zofran Inj) 4 mg IVP Q6H PRN PRN Reason: Nausea/Vomiting Last Admin: 11/30/17 13:00 Dose: 4 mg Pantoprazole Sodium (Protonix Ec Tab) 40 mg PO 0600 ANNA Last Admin: 12/06/17 05:22 Dose: 40 mg Tramadol HCl (Ultram) 50 mg PO Q8 PRN PRN Reason: Pain, moderate (4-7) Last Admin: 12/05/17 16:24 Dose: 50 mg - Labs Labs: 12/06/17 07:00 12/06/17 07:00 PT 15.5 SECONDS (9.4-12.5) H 11/30/17 05:00 INR 1.34 11/30/17 05:00 APTT 28.1 Seconds (25.1-36.5) 11/30/17 05:00 - Constitutional Appears: Non-toxic, No Acute Distress - Head Exam Head Exam: ATRAUMATIC, NORMAL INSPECTION, NORMOCEPHALIC - Eye Exam Eye Exam: EOMI, Normal appearance, PERRL - ENT Exam ENT Exam: Mucous Membranes Moist, Normal Exam - Neck Exam Neck Exam: Normal Inspection - Respiratory Exam Respiratory Exam: Clear to Ausculation Bilateral, NORMAL BREATHING PATTERN - Cardiovascular Exam Cardiovascular Exam: REGULAR RHYTHM, +S1, +S2 - GI/Abdominal Exam GI & Abdominal Exam: Soft, Normal Bowel Sounds. absent: Tenderness - Rectal Exam Rectal Exam: Deferred - Extremities Exam Extremities Exam: Pedal Edema (L 3+, R 1+) - Back Exam Back Exam: NORMAL INSPECTION. absent: tenderness - Neurological Exam Neurological Exam: Alert, Awake, CN II-XII Intact, Oriented x3 Neuro motor strength exam: Left Upper Extremity: 5, Right Upper Extremity: 5, Left Lower Extremity: 5, Right Lower Extremity: 5 Assessment and Plan - Assessment and Plan (Free Text) Assessment: Patient is a 47 yo AA female with a history of RA on monoclonal Ab, asthma/COPD , gastric bypass with subsequent SBO, and iron deficiency anemia who presented with SOB, R chest wall pain, significant fatigue, and subjective fevers and chills. She was found to have significant leukocytosis. Imaging demonstrated RUL , RLL infiltrates and d/l atelectasis. UA is consistent with UTI. Patient was hypotensive with weak response to IVF, and was transferred to the ICU. She has not required pressors thus far. Patient was placed on isolation for concern of opportunistic infections 2/2 immunosuppression from monoclonal Ab use. Sputum was negative for AFB, and she is no longer on precautions. Patient was transferred to telemetry. Plan: Severe sepsis 2/2 Pneumonia and UTI, improving- h/o asthma/COPD - CT chest: Dense right upper lobe infiltrate with patchy infiltrate right lower lobe, borderline at the left lower lobe - CTA chest: No evidence of PE - CXR 11/30: Mild interval worsening of infiltrates at the right and left bases and mid left lung zone as well. Dense infiltrate unchanged right upper lobe. - CXR 12/06: no active disease - LE Dopplers 12/01, 12/06: no DVT - Afebrile- Tmax 100 on 11/29 - Tylenol 650 mg PO q6hrs PRN fever - Lactate 3.3 - Procalcintonin 20.61->0.76 - Leukocytosis resolved (WBC 30s->17.5->6.7, 8.3)- steroids discontinued - SBP 100s-110s, maintain MAP >65 - Hold Minodrine - IVF discontinued - Continue to monitor closely for hypotension - Quantiferon indeterminate- f/u repeat - Blood Cx negative - Urine Cx- Strep anginosus (>100,000) sensitive to vanco and PCN, GNR (<10, 000), yeast - F/u repeat UA - Sputum Cx- yeast - AFB x3 negative - Urine L. pneumophila Ag negative - HIV nonreactive - MRSA negative - Discontinue Meropenem - Discontinue Doxycycline - Albuterol 2.5 mg INH q6hrs - Mucinex 600 mg PO BID - Tylenol 650 mg PO q6hrs PRN pain - Toradol 30 mg IV q6hrs PRN pain - ICU consulted (Mark) - ID consulted (Damián) Bradycardia, resolved (HR 70s)- could also be side effect of albuterol - EKG 12/01: marked sinus bradycardia, low voltage QRS - Echo: EF 60%, moderate pulm HTN - F/u lupus panel- negative thus far - Continue to monitor closely - Cardiology consulted (Edilberto)- atropine 0.5 mg IV if HR <30 L foot edema - LE Dopplers: no DVT - L foot XR: negative H/o SBO s/p gastric bypass in 2001- N/V/abd pain resolved - CT A/P: Post gastric by pass operative changes are identified with no bowel obstruction appreciable or gross local bowel mesenteric reaction. No ascites or free air. Prior cholecystectomy. - Zofran 4 mg IV q6hrs PRN nausea - Hepatitis panel negative - GI consulted (Lorrie)- will need endoscopy as outpatient Iron deficiency anemia, stable- current Hgb 8.2, no signs of active bleed - Iron low (31), TIBC wnl (325), % sat low (10), ferritin wnl (106) - B12 wnl (>1000), folate wnl (4.1) - FOBT positive - Peripheral smear- RBC microcytic hypochromic, few teardrop, occasional target cells, no schistocytes - Maintain Hgb >7, transfusion if necessary Low TSH (0.04)- repeat wnl (1.4) - Free T4 wnl (1.42, 1.37) - T3 low (0.33) Hypokalemia - Repleted - Monitor daily Rheumatoid Arthritis- currently asymptomatic - Hold anti-TNF alpha - Work-up for opportunistic infections IVF: not indicated GI ppx: Protonix 40 mg PO daily VTE ppx: Lovenox 40 mg SC, SCDs Diet: heart healthy Code status: full code Case was discussed with attending, Dr. Shelton. <Arelis Shelton R - Last Filed: 12/06/17 17:47> Objective - Vital Signs/Intake and Output Vital Signs (last 24 hours): Temp Pulse Resp BP Pulse Ox 98.6 F 82 18 105/56 L 96 12/06/17 06:00 12/06/17 14:00 12/06/17 06:00 12/06/17 06:00 12/06/17 06:00 Intake and Output: 12/06/17 12/06/17 06:59 18:59 Intake Total 1500 Output Total 503 Balance 997 - Medications Medications: Current Medications Acetaminophen (Tylenol 325mg Tab) 650 mg PO Q6H PRN PRN Reason: Fever >100.4 F OR mild pain Last Admin: 12/05/17 13:36 Dose: 650 mg Albuterol Sulfate (Albuterol 0.083% Inhal Bharati (2.5 Mg/3 Ml) Ud) 2.5 mg INH [id number] [facility] Last Admin: 12/06/17 13:41 Dose: 2.5 mg Bacitracin (Bacitracin) 1 ea TOP DAILY [facility] Last Admin: 12/06/17 09:50 Dose: 1 ea Enoxaparin Sodium (Lovenox) 40 mg SC DAILY [facility] PRN Reason: Protocol Last Admin: 12/06/17 09:51 Dose: 40 mg Guaifenesin (Mucinex La) 600 mg PO BID [facility] Last Admin: 12/06/17 17:14 Dose: 600 mg Lactobacillus Acidophilus (Bacid Acidophilus) 1 cap PO BID [facility] Last Admin: 12/06/17 17:07 Dose: 1 cap Midodrine (Proamatine) 2.5 mg PO BID [facility] Last Admin: 12/05/17 18:53 Dose: 2.5 mg Ondansetron HCl (Zofran Inj) 4 mg IVP Q6H PRN PRN Reason: Nausea/Vomiting Last Admin: 11/30/17 13:00 Dose: 4 mg Pantoprazole Sodium (Protonix Ec Tab) 40 mg PO 0600 [facility] Last Admin: 12/06/17 05:22 Dose: 40 mg Tramadol HCl (Ultram) 50 mg PO Q8 PRN PRN Reason: Pain, moderate (4-7) Last Admin: 12/06/17 17:06 Dose: 50 mg - Labs Labs: 12/06/17 07:00 12/06/17 07:00 PT 15.5 SECONDS (9.4-12.5) H 11/30/17 05:00 INR 1.34 11/30/17 05:00 APTT 28.1 Seconds (25.1-36.5) 11/30/17 05:00 Attending/Attestation - Attestation I have personally seen and examined this patient.: Yes I have fully participated in the care of the patient.: Yes I have reviewed all pertinent clinical information, including history, physical exam and plan: Yes Notes (Text): Patient seen and examined by me at 9:15AM with resident. Case including HPI, physical exam, and assessment and plan discussed with resident. Agree with above with following additions/corrections. 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 Patient states that she is feeling ok. Feels her left foot is more swollen than normal. Shortness of breath and cough improved. Patient states that she is also using incentive spirometer which is helping. Breathing treatments are helping. Improving right sided back/chest pain from the pneumonia. Pain medications are helping. No abdominal pain, nausea, or vomiting. No fevers or chills. No headaches or dizziness. No dysuria. Patient is having bowel movements. Patient is now eating well. Physical exam: General: Awake and alert sitting up in bed in no acute distress HEENT: Normocephalic atraumatic. Extraocular muscles intact. Pupils equal reactive. No scleral icterus. Oropharynx is pink and moist. No pharyngeal erythema or exudate appreciated. Neck is supple. Cardiovascular: Normal rhythm. Normal S1, S2. No murmurs, rubs, or gallops appreciated Pulmonary: Normal respiratory effort. No rhonchi, rales or wheezing appreciated. Gastrointestinal: Soft, nondistended. Nontender. Positive bowel sounds all 4 quadrants, no guarding. Musculoskeletal: Moves all extremities, no calf tenderness. Mild bilateral lower extremity pitting edema Central nervous system: AAO x 3. CN 2-12 grossly intact. Dermatologic: Skin warm and dry. 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 1. Severe sepsis. Sepsis resolved. Secondary to UTI and pneumonia. ID following , recommendations appreciated. Continue doxycycline and meropenem, today is last day. Will repeat chest x-ray. Zyvox stopped. Procalcitonin was 20.61. Repeat procalcitonin 0.76. Urine culture positive for streptococcus anginosus. Blood culture with no growth.Quantiferon indeterminate. Sputum for AFB preliminary reads negative x 3. Patient taken off isolation. Sputum culture positive for yeast. Lactic acidosis resolved. Leukocytosis resolved. Patient remains afebrile. Chest CT per radiologist shows dense right upper lobe infiltrate with patchy infiltrate right lower lobe, boderline at left lower lobe. CTA chest per radiologist showed no pulmonary embolus, artifacts obscure long bases however; dense right upper lobe infiltrate and limited right lower lobe infiltrate reiterated and limited left lower lobe atelectasis reiterated. Chest xray 11/30/17 per radiologist showed mild interval worsening of infiltrates at the right and left bases and mid left lung zone as well, dense infiltrate unchanged right upper lobe. 2. Left foot edema. Bilateral lower extremity edema. We'll repeat bilateral lower extremity Dopplers. Will get x-ray of the left foot. 3. Abdominal pain. Nausea and vomiting. Resolved. Continue Zofran. GI following , recommendations appreciated. CT abd/pelvis per radiologist showed post gastric bypass operative changes are identified with no bowel obstruction appreciable or gross local bowel mesenteric reaction; no ascites or free air; prior cholecystectomy. Hepatitis panel negative. 3. Stool for occult blood positive. H&H stable. GI following, recommendations appreciated. No intervention inpatient. Continue to monitor CBC. 4. Bradycardia. Unclear etiology. Resolved. Cardiology following, recommendations appreciated. 2D echo per aircraft pilot shows left ventricular normal size, normal left ventricular wall thickness, left ventricular function is normal, left ventricular ejection fraction is within normal range, normal LV segmental wall motion, moderate pulmonary hypertension, mild aortic regurgitation. Lupus panel pending. Continue to monitor on telemetry. We'll stop midodrine today. 5. Iron deficiency anemia. Patient gets IV iron infusions as an outpatient. Stool for occult blood positive. H&H stable. Continue to monitor CBC. 6. Abnormal TSH. Repeat TSH within normal limits. Free T4 within normal limits. 7. Hypokalemia. Resolved. Continue to monitor. 8. Rheumatoid Arthritis. Home medications held for now secondary to acute infection. 9. GI/DVT prophylaxis. Protonix and Lovenox. Case was discussed in detail with the patient regarding current diagnosis and treatment plan.
[2017-12-06] MEDS ORDERED: Oxycodone/Acetaminophen 10/325 mg Tab PO ONE (19:33)
[2017-12-07] MEDS: Albuterol 0.083% Inhal Sol (2.5 mg/3 mL) UD INH SCH ×2 (01:45→08:23)
[2017-12-07] MEDS: Pantoprazole 40 mg EC Tab PO SCH (05:49)
--- NOTE | 2017-12-07 06:30 | CP.PCM.PN ---
<Myranda Enrique - Last Filed: 12/07/17 13:37> Subjective - Date & Time of Evaluation Date of Evaluation: 12/07/17 Time of Evaluation: 09:00 - Subjective Subjective: PGY-1 Myranda Enrique D.O. Medicine progress note for Dr. Shelton's service: Patient was seen and examined this morning. Over night, the patient had L leg pain that required Percocet. This morning, the patient's L leg swelling has resolved, but her L foot is still significantly edematous. Her pain is present but decreased. Patient reports that her SOB and cough have improved. She denies fevers, chills, abdominal pain, N/V/D/C. She is eating and sleeping well. Objective - Vital Signs/Intake and Output Vital Signs (last 24 hours): Temp Pulse Resp BP Pulse Ox 99.2 F 74 20 93/50 L 94 L 12/07/17 00:01 12/07/17 02:00 12/07/17 00:01 12/07/17 00:01 12/07/17 00:01 Intake and Output: 12/06/17 12/07/17 18:59 06:59 Intake Total 540 120 Output Total 900 0 Balance -360 120 - Medications Medications: Current Medications Acetaminophen (Tylenol 325mg Tab) 650 mg PO Q6H PRN PRN Reason: Fever >100.4 F OR mild pain Last Admin: 12/05/17 13:36 Dose: 650 mg Albuterol Sulfate (Albuterol 0.083% Inhal Bharati (2.5 Mg/3 Ml) Ud) 2.5 mg INH [id number] [facility] Last Admin: 12/07/17 01:45 Dose: 2.5 mg Bacitracin (Bacitracin) 1 ea TOP DAILY ANNA Last Admin: 12/06/17 09:50 Dose: 1 ea Enoxaparin Sodium (Lovenox) 40 mg SC DAILY [facility] PRN Reason: Protocol Last Admin: 12/06/17 09:51 Dose: 40 mg Guaifenesin (Mucinex La) 600 mg PO BID ANNA Last Admin: 12/06/17 17:14 Dose: 600 mg Lactobacillus Acidophilus (Bacid Acidophilus) 1 cap PO BID ANNA Last Admin: 12/06/17 17:07 Dose: 1 cap Midodrine (Proamatine) 2.5 mg PO BID [facility] Last Admin: 12/05/17 18:53 Dose: 2.5 mg Ondansetron HCl (Zofran Inj) 4 mg IVP Q6H PRN PRN Reason: Nausea/Vomiting Last Admin: 11/30/17 13:00 Dose: 4 mg Pantoprazole Sodium (Protonix Ec Tab) 40 mg PO 0600 [facility] Last Admin: 12/07/17 05:49 Dose: 40 mg Tramadol HCl (Ultram) 50 mg PO Q8 PRN PRN Reason: Pain, moderate (4-7) Last Admin: 12/07/17 05:51 Dose: 50 mg - Labs Labs: 12/06/17 07:00 12/06/17 07:00 PT 15.5 SECONDS (9.4-12.5) H 11/30/17 05:00 INR 1.34 11/30/17 05:00 APTT 28.1 Seconds (25.1-36.5) 11/30/17 05:00 - Constitutional Appears: Non-toxic, No Acute Distress - Head Exam Head Exam: ATRAUMATIC, NORMAL INSPECTION - Eye Exam Eye Exam: EOMI, Normal appearance, PERRL - ENT Exam ENT Exam: Mucous Membranes Moist, Normal Exam - Neck Exam Neck Exam: Normal Inspection - Respiratory Exam Respiratory Exam: Clear to Ausculation Bilateral, NORMAL BREATHING PATTERN - Cardiovascular Exam Cardiovascular Exam: REGULAR RHYTHM, +S1, +S2 - GI/Abdominal Exam GI & Abdominal Exam: Soft, Normal Bowel Sounds. absent: Tenderness - Rectal Exam Rectal Exam: Deferred - Extremities Exam Extremities Exam: Pedal Edema (L foot). absent: Calf Tenderness - Back Exam Back Exam: NORMAL INSPECTION. absent: tenderness - Neurological Exam Neurological Exam: Alert, CN II-XII Intact, Oriented x3 Neuro motor strength exam: Left Upper Extremity: 5, Right Upper Extremity: 5, Left Lower Extremity: 5, Right Lower Extremity: 5 - Psychiatric Exam Psychiatric exam: Normal Affect, Normal Mood - Skin Skin Exam: Dry, Intact, Normal Color, Warm Assessment and Plan - Assessment and Plan (Free Text) Assessment: Patient is a 47 yo AA female with a history of RA on monoclonal Ab, asthma/COPD , gastric bypass with subsequent SBO, and iron deficiency anemia who presented with SOB, R chest wall pain, significant fatigue, and subjective fevers and chills. She was found to have significant leukocytosis. Imaging demonstrated RUL , RLL infiltrates and d/l atelectasis. UA is consistent with UTI. Patient was hypotensive with weak response to IVF, and was transferred to the ICU. She has not required pressors thus far. Patient was placed on isolation for concern of opportunistic infections 2/2 immunosuppression from monoclonal Ab use. Sputum was negative for AFB, and she is no longer on precautions. Patient was transferred to telemetry. Plan: Severe sepsis 2/2 Pneumonia and UTI, improving- h/o asthma/COPD - CT chest: Dense right upper lobe infiltrate with patchy infiltrate right lower lobe, borderline at the left lower lobe - CTA chest: No evidence of PE - CXR 11/30: Mild interval worsening of infiltrates at the right and left bases and mid left lung zone as well. Dense infiltrate unchanged right upper lobe. - CXR 12/06: no active disease - LE Dopplers 12/01, 12/06: no DVT - Afebrile- Tmax 100 on 11/29 - Tylenol 650 mg PO q6hrs PRN fever - Lactate 3.3 - Procalcintonin 20.61->0.76 - Leukocytosis resolved (WBC 30s->17.5->6.7)- steroids discontinued - SBP 90s-110s, maintain MAP >65 - Hold Minodrine - IVF discontinued - Continue to monitor closely for hypotension - Quantiferon indeterminate- f/u repeat - Blood Cx negative - Urine Cx- Strep anginosus (>100,000) sensitive to vanco and PCN, GNR (<10, 000), yeast - Repeat UA negative - Sputum Cx- yeast - AFB x3 negative - Urine L. pneumophila Ag negative - HIV nonreactive - MRSA negative - Discontinued antibiotics - Albuterol 2.5 mg INH q6hrs PRN - Mucinex 600 mg PO BID - Tylenol 650 mg PO q6hrs PRN pain - Toradol 30 mg IV q6hrs PRN pain - ICU consulted (Mark) - ID consulted (Damián) Bradycardia, resolved (HR 70s-80s)- could also be side effect of albuterol - EKG 12/01: marked sinus bradycardia, low voltage QRS - Echo: EF 60%, moderate pulm HTN - Lupus panel- RONDA, anti-mitochondrial Ab positive - Continue to monitor closely of albuterol - Cardiology consulted (Edilberto)- atropine 0.5 mg IV if HR <30 L foot edema - LE Dopplers: no DVT - L foot XR: negative - Podiatry consulted (Tray)- no surgical intervention indicated, f/u with outpatient photo tube assembler H/o SBO s/p gastric bypass in 2001- N/V/abd pain resolved - CT A/P: Post gastric by pass operative changes are identified with no bowel obstruction appreciable or gross local bowel mesenteric reaction. No ascites or free air. Prior cholecystectomy. - Zofran 4 mg IV q6hrs PRN nausea - Hepatitis panel negative - GI consulted (Lorrie)- will need endoscopy as outpatient Iron deficiency anemia, stable- current Hgb 8, no signs of active bleed - Iron low (31), TIBC wnl (325), % sat low (10), ferritin wnl (106) - B12 wnl (>1000), folate wnl (4.1) - FOBT positive - Peripheral smear- RBC microcytic hypochromic, few teardrop, occasional target cells, no schistocytes - Maintain Hgb >7, transfusion if necessary Low TSH (0.04)- repeat wnl (1.4) - Free T4 wnl (1.42, 1.37) - T3 low (0.33) - Follow up as outpatient Hypokalemia - Repleted - Monitor daily Rheumatoid Arthritis- currently asymptomatic - RONDA positive, titer >1:1280 - Anti-mitochondrial Ab positive, titer 1:160 - Hold anti-TNF alpha - Work-up for opportunistic infections IVF: not indicated GI ppx: Protonix 40 mg PO daily, Florastor 1 capsule PO BID VTE ppx: Lovenox 40 mg SC, SCDs Diet: heart healthy Code status: full code Case was discussed with attending, Dr. Shelton. <Arelis Shelton - Last Filed: 12/07/17 14:08> Objective - Vital Signs/Intake and Output Vital Signs (last 24 hours): Temp Pulse Resp BP Pulse Ox 99 F 108 H 20 108/70 95 12/07/17 06:00 12/07/17 10:00 12/07/17 06:00 12/07/17 06:00 12/07/17 06:00 Intake and Output: 12/07/17 12/07/17 06:59 18:59 Intake Total 120 660 Output Total 0 900 Balance 120 -240 - Medications Medications: Current Medications Acetaminophen (Tylenol 325mg Tab) 650 mg PO Q6H PRN PRN Reason: Fever >100.4 F OR mild pain Last Admin: 12/05/17 13:36 Dose: 650 mg Albuterol Sulfate (Albuterol 0.083% Inhal Bharati (2.5 Mg/3 Ml) Ud) 2.5 mg INH [id number] PRN PRN Reason: Shortness of Breath Bacitracin (Bacitracin) 1 ea TOP DAILY [facility] Last Admin: 12/07/17 09:40 Dose: 1 ea Enoxaparin Sodium (Lovenox) 40 mg SC DAILY ANNA PRN Reason: Protocol Last Admin: 12/07/17 09:40 Dose: 40 mg Guaifenesin (Mucinex La) 600 mg PO BID [facility] Last Admin: 12/07/17 09:40 Dose: 600 mg Lactobacillus Acidophilus (Bacid Acidophilus) 1 cap PO BID [facility] Last Admin: 12/07/17 09:40 Dose: 1 cap Ondansetron HCl (Zofran Inj) 4 mg IVP Q6H PRN PRN Reason: Nausea/Vomiting Last Admin: 11/30/17 13:00 Dose: 4 mg Pantoprazole Sodium (Protonix Ec Tab) 40 mg PO 0600 [facility] Last Admin: 12/07/17 05:49 Dose: 40 mg Tramadol HCl (Ultram) 50 mg PO Q8 PRN PRN Reason: Pain, moderate (4-7) Last Admin: 12/07/17 05:51 Dose: 50 mg - Labs Labs: 12/07/17 06:30 12/07/17 06:30 PT 15.5 SECONDS (9.4-12.5) H 11/30/17 05:00 INR 1.34 11/30/17 05:00 APTT 28.1 Seconds (25.1-36.5) 11/30/17 05:00 Attending/Attestation - Attestation I have personally seen and examined this patient.: Yes I have fully participated in the care of the patient.: Yes I have reviewed all pertinent clinical information, including history, physical exam and plan: Yes Notes (Text): Patient seen and examined by me at 9:20AM with resident. Case including HPI, physical exam, and assessment and plan discussed with resident. Agree with above with following additions/corrections. 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 Patient states that she is feels like she is getting better. Still complains of left foot and heel pain. States it hurts with ambulating. Feels lower extremity edema has improved. Shortness of breath and cough improved. However, still using nebulizer treatments. Improving right sided back/chest pain from the pneumonia. Pain medications are helping. No abdominal pain, nausea, or vomiting. No fevers or chills. No headaches or dizziness. No dysuria. Patient is having bowel movements. Patient eating well. Physical exam: General: Awake and alert sitting up in bed in no acute distress HEENT: Normocephalic atraumatic. Extraocular muscles intact. Pupils equal reactive. No scleral icterus. Oropharynx is pink and moist. No pharyngeal erythema or exudate appreciated. Neck is supple. Cardiovascular: Normal rhythm. Normal S1, S2. No murmurs, rubs, or gallops appreciated Pulmonary: Normal respiratory effort. No rhonchi, rales or wheezing appreciated. Gastrointestinal: Soft, nondistended. Nontender. Positive bowel sounds all 4 quadrants, no guarding. Musculoskeletal: Moves all extremities, no calf tenderness. Mild bilateral lower extremity pitting edema. Positive left foot edema and tenderness to palpation, no signs of infection. Central nervous system: AAO x 3. CN 2-12 grossly intact. Dermatologic: Skin warm and dry. 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 1. Severe sepsis. Sepsis resolved. Secondary to UTI and pneumonia. ID following , recommendations appreciated. S/P treatment with Zyvox, doxycycline and meropenem. Repeat chest x-ray per radiologist shows no active disease. Procalcitonin was 20.61. Repeat procalcitonin 0.76. Urine culture positive for streptococcus anginosus. Blood culture with no growth. Quantiferon indeterminate. Sputum for AFB preliminary reads negative x 3. Patient taken off isolation. Sputum culture positive for yeast. Lactic acidosis resolved. Leukocytosis resolved. Patient remains afebrile. Chest CT per radiologist shows dense right upper lobe infiltrate with patchy infiltrate right lower lobe , boderline at left lower lobe. CTA chest per radiologist showed no pulmonary embolus, artifacts obscure long bases however; dense right upper lobe infiltrate and limited right lower lobe infiltrate reiterated and limited left lower lobe atelectasis reiterated. Chest xray 11/30/17 per radiologist showed mild interval worsening of infiltrates at the right and left bases and mid left lung zone as well, dense infiltrate unchanged right upper lobe. 2. Left foot edema and pain. Bilateral lower extremity edema. Repeat bilateral lower extremity dopplers negative for DVT . X-ray of the left foot per radiologist shows no acute finidings. Will consult podiatry. 3. Abdominal pain. Nausea and vomiting. Resolved. Continue Zofran. GI following , recommendations appreciated. CT abd/pelvis per radiologist showed post gastric bypass operative changes are identified with no bowel obstruction appreciable or gross local bowel mesenteric reaction; no ascites or free air; prior cholecystectomy. Hepatitis panel negative. 3. Stool for occult blood positive. H&H stable. GI following, recommendations appreciated. No intervention inpatient. Continue to monitor CBC. 4. Bradycardia. Unclear etiology. Resolved. Cardiology following, recommendations appreciated. 2D echo per airfreight loading supervisor shows left ventricular normal size, normal left ventricular wall thickness, left ventricular function is normal, left ventricular ejection fraction is within normal range, normal LV segmental wall motion, moderate pulmonary hypertension, mild aortic regurgitation. Lupus panel pending. Continue to monitor on telemetry. Midodrine stopped. 5. Iron deficiency anemia. Patient gets IV iron infusions as an outpatient. Stool for occult blood positive. H&H slightly downtrended today. Continue to monitor CBC. 6. Abnormal TSH. Repeat TSH within normal limits. Free T4 within normal limits. 7. Hypokalemia. Replace potassium. Continue to monitor. 8. Rheumatoid Arthritis. Home medications held for now secondary to acute infection. 9. GI/DVT prophylaxis. Protonix and Lovenox. Case was discussed in detail with the patient regarding current diagnosis and treatment plan.
[2017-12-07 07:30] LABS: BASO # 0.01 K/mm3 (0.0-2.0); BASO % 0.1 % (0.0-3.0); EOS # 0.5 (0.0-0.7); EOS % 4.7 % (1.5-5.0); GRAN # 6.36 (1.4-6.5); GRAN % 64.8 % (50.0-68.0); LYMPH # 1.9 (1.2-3.4); LYMPH % 19.2 % (22.0-35.0); MEAN CELL VOLUME 87.1 fl (80.0-105.0); MEAN CORPUSCULAR HEMOGLOBIN 28.7 pg (25.0-35.0); MEAN CORPUSCULAR HGB CONC 32.9 g/dl (31.0-37.0); MEAN PLATELET VOLUME 10.9 fl (7.0-11.0); MONO # 1.1 (0.1-0.6); MONO % 11.2 % (1.0-6.0); RBC 2.79 10^6/uL (3.5-6.1); RED CELL DISTRIBUTION WIDTH 16.7 % (11.5-14.5); WHITE BLOOD COUNT 9.8 10^3/ul (4.5-11.0)
[2017-12-07 07:38] LABS: CALCIUM 7.7 mg/dL (8.4-10.5); GFR NON-AFRICAN AMERICAN > 60
[2017-12-07 07:42] LABS: BLOOD UREA NITROGEN < 2 mg/dL (7-21)
[2017-12-07] MEDS ORDERED: Albuterol 0.083% Inhal Sol (2.5 mg/3 mL) UD INH PRN (08:38)
[2017-12-07] MEDS: guaiFENesin 600 mg ER Tab PO SCH ×2 (09:40→17:42)
[2017-12-07] MEDS: Lactobacillus Acidophilus 500 MU Cap PO SCH ×2 (09:40→17:42)
[2017-12-07] MEDS: Bacitracin 500 Units/gm Oint Foilpak UD TOP SCH (09:40)
[2017-12-07] MEDS: Enoxaparin 40 mg Syringe SC SCH (09:40)
--- NOTE | 2017-12-07 11:55 | CP.PCM.CON ---
History of Present Illness - History of Present Illness History of Present Illness: Podiatry consult note for Dr. Feliz 47 y/o female with PMHx of RA, asthma, SBO 2/2 intra-abdominal scar tissue, and chronic iron-deficiency anemia seen and evaluated for pain to her left foot. Patient states she was admitted due to severe septic pneumonia. Podiatry was consulted as patient complains of pain to her left foot at the arch, which she states started several days ago. Patient denies any trauma to the foot. Patient states the pain is constant and worse with ambulation. Patient denies any numbness, tingling or burning. Patient reports she is a patient of Dr. Payam Sotelo, who she sees 2-3 times per year. Patient last saw him in March of 2017 due to complaints of pain to her left foot bunion. Patient states she has generalized pain to her pain due to history of rheumatoid arthritis. Patient denies any fever, nausea vomitting at this time. PMHx: as above PSH: Cholecystectomy, bilateral wrist fractures with metal placement, gastric bypass surgery, SocHx: denies etoh, substance and tobacco use FamHx: HTN (both parents) Allergies: denies Review of Systems - Review of Systems All systems: reviewed and no additional remarkable complaints except Review of Systems: As per HPI Past Patient History - Infectious Disease Hx of Infectious Diseases: None - Tetanus Immunizations Tetanus Immunization: Unknown - Past Social History Smoking Status: Never Smoked - CARDIAC Hx Pacemaker: No - PULMONARY Hx Respiratory Disorders: No - NEUROLOGICAL Hx Neurological Disorder: No - HEENT Hx HEENT Problems: No - RENAL Hx Chronic Kidney Disease: No - ENDOCRINE/METABOLIC Hx Endocrine Disorders: No - HEMATOLOGICAL/ONCOLOGICAL Hx Blood Transfusions: Yes Hx Blood Transfusion Reaction: No - INTEGUMENTARY Hx Dermatological Problems: No - MUSCULOSKELETAL/RHEUMATOLOGICAL Hx Rheumatoid Arthritis: Yes - GASTROINTESTINAL Other/Comment: gastric bypass sx. cholesytectomy - GENITOURINARY/GYNECOLOGICAL Hx Genitourinary Disorders: No - PSYCHIATRIC Hx Emotional Abuse: No Hx Physical Abuse: No Hx Substance Use: No - SURGICAL HISTORY Hx Orthopedic Surgery: Yes (B/L WRIST METAL PLACEMENT) - ANESTHESIA Hx Anesthesia Reactions: No Hx Malignant Hyperthermia: No Meds Allergies/Adverse Reactions: Allergies Allergy/AdvReac Type Severity Reaction Status Date / Time No Known Allergies Allergy Verified 04/11/15 19:53 - Medications Medications: Current Medications Acetaminophen (Tylenol 325mg Tab) 650 mg PO Q6H PRN PRN Reason: Fever >100.4 F OR mild pain Last Admin: 12/05/17 13:36 Dose: 650 mg Albuterol Sulfate (Albuterol 0.083% Inhal Bharati (2.5 Mg/3 Ml) Ud) 2.5 mg INH [id number] PRN PRN Reason: Shortness of Breath Bacitracin (Bacitracin) 1 ea TOP DAILY [facility] Last Admin: 12/07/17 09:40 Dose: 1 ea Enoxaparin Sodium (Lovenox) 40 mg SC DAILY [facility] PRN Reason: Protocol Last Admin: 12/07/17 09:40 Dose: 40 mg Guaifenesin (Mucinex La) 600 mg PO BID [facility] Last Admin: 12/07/17 09:40 Dose: 600 mg Lactobacillus Acidophilus (Bacid Acidophilus) 1 cap PO BID [facility] Last Admin: 12/07/17 09:40 Dose: 1 cap Midodrine (Proamatine) 2.5 mg PO BID [facility] Last Admin: 12/05/17 18:53 Dose: 2.5 mg Ondansetron HCl (Zofran Inj) 4 mg IVP Q6H PRN PRN Reason: Nausea/Vomiting Last Admin: 11/30/17 13:00 Dose: 4 mg Pantoprazole Sodium (Protonix Ec Tab) 40 mg PO 0600 [facility] Last Admin: 12/07/17 05:49 Dose: 40 mg Tramadol HCl (Ultram) 50 mg PO Q8 PRN PRN Reason: Pain, moderate (4-7) Last Admin: 12/07/17 05:51 Dose: 50 mg Physical Exam - Constitutional Appears: Well, Non-toxic, No Acute Distress - Head Exam Head Exam: ATRAUMATIC, NORMOCEPHALIC - Extremities Exam Additional comments: Lower Extremity Focused Exam VASC: DP and PT 2/4 bilaterally, CFT less than 3 seconds X 10, TG warm to cool within normal limits, +2 pitting edema noted to bilateral legs NEURO: Epicritic and protective sensation intact bilaterlly DERM: discoloration noted to the right leg, no open lesions, no eythema, no interdigital maceration, no clinical signs of infection ORTHO: pain on palpation distal to the medial calcaneal tubercle at the plantar fascia, pain with hallux dorsiflexion, hallux abducto-valgus deformity noted of the left foot with a prominent medial eminence, flattening of the arch also noted on the left, diffuse tenderness of palpation and range of motion of the ankle, STJ, and MTJ due to history of RA - Neurological Exam Neurological exam: Alert, Oriented x3 - Psychiatric Exam Psychiatric exam: Normal Affect, Normal Mood Results - Vital Signs Recent Vital Signs: Last Vital Signs Temp 99 F 12/07/17 06:00 Pulse 88 12/07/17 06:00 Resp 20 12/07/17 06:00 BP 108/70 12/07/17 06:00 Pulse Ox 95 12/07/17 06:00 - Labs Result Diagrams: 12/07/17 06:30 12/07/17 06:30 Labs: Laboratory Results - last 24 hr 12/02/17 12/06/17 12/07/17 06:10 12:20 06:30 WBC 9.8 RBC 2.79 L Hgb 8.0 L Hct 24.3 L MCV 87.1 MCH 28.7 MCHC 32.9 RDW 16.7 H Plt Count 227 MPV 10.9 Gran % 64.8 Lymph % (Auto) 19.2 L [place] % (Auto) 11.2 H Eos % (Auto) 4.7 Baso % (Auto) 0.1 Gran # 6.36 Lymph # (Auto) 1.9 [place] # (Auto) 1.1 H Eos # (Auto) 0.5 Baso # (Auto) 0.01 Sodium Potassium Chloride Carbon Dioxide Anion Gap BUN Creatinine Est GFR ( Amer) Est GFR (Non-Af Amer) Random Glucose Calcium Phosphorus Magnesium Urine Color Light yellow Urine Appearance Clear Urine pH 6.5 Ur Specific Capulin <= 1.005 Urine Protein Negative Urine Glucose (UA) Negative Urine Ketones Negative Urine Blood Trace-lysed H Urine Nitrate Negative Urine Bilirubin Negative Urine Urobilinogen 0.2 Ur Leukocyte Esterase Negative Urine RBC 0 - 2 Urine WBC 5 - 10 Ur Epithelial Cells 1 - 3 Anti-Mitochondrial Titr 1:160 H Anti-Mitochondrial Ab Positive H Striated Muscle Ab TNP Anti-Myocardial Ab Negative Anti-Parietal Cell Ab <20.0 12/07/17 06:30 WBC RBC Hgb Hct MCV MCH MCHC RDW Plt Count MPV Gran % Lymph % (Auto) [place] % (Auto) Eos % (Auto) Baso % (Auto) Gran # Lymph # (Auto) [place] # (Auto) Eos # (Auto) Baso # (Auto) Sodium 140 Potassium 3.8 Chloride 105 Carbon Dioxide 28 Anion Gap 11 BUN < 2 L Creatinine 0.5 L Est GFR ( Amer) > 60 Est GFR (Non-Af Amer) > 60 Random Glucose 66 L Calcium 7.7 L Phosphorus 3.2 Magnesium 1.7 Urine Color Urine Appearance Urine pH Ur Specific Capulin Urine Protein Urine Glucose (UA) Urine Ketones Urine Blood Urine Nitrate Urine Bilirubin Urine Urobilinogen Ur Leukocyte Esterase Urine RBC Urine WBC Ur Epithelial Cells Anti-Mitochondrial Titr Anti-Mitochondrial Ab Striated Muscle Ab Anti-Myocardial Ab Anti-Parietal Cell Ab Assessment & Plan - Assessment and Plan (Free Text) Assessment: 47 y/o female with PMHx of RA, asthma, SBO 2/2 intra-abdominal scar tissue, and chronic iron-deficiency anemia seen and evaluated for pain to her left foot. Plan: Patient seen and evaluated Plan discussed with attending Dr. Feliz Chart, labs and vitals reviewed- WBC 9.8, afebrile Foot X-ray- negative for acute fracture, dislocation or displacement Ultrasound LE- negative for DVT No plan for podiatric surgical intervention at this time Patient advised to apply ice to affected extremity at this time Patient to follow up with supervisor molding Dr. Payam Sotelo upon discharge, patient supervisor molding aware of patient's hospital admission Podiatry will follow patient while in house - Date & Time Date: 12/07/17 Time: 12:12
--- NOTE | 2017-12-07 13:24 | PN ---
DATE: 12/07/2017 SUBJECTIVE: The patient is in bed, in no acute distress, nontoxic. Seen earlier today. PHYSICAL EXAMINATION: VITAL SIGNS: On exam, temperature is 98, blood pressure is 108/80, respiratory rate of 20, heart rate of 80. HEENT: Examination of HEENT is unremarkable. NECK: Supple. LUNGS: Have decreased breath sounds. HEART: Normal S1, S2. ABDOMEN: Soft. LABORATORY DATA: Laboratory examination reveals a white count of 9.8, hemoglobin of 8. Chemistries are noted with a BUN of 2, creatinine of 0.5 and procalcitonin of 0.76. Urinalysis is noted. RONDA is positive to 1:1280. Antimitochondrial antibody is positive with a titer of 1:160. ASSESSMENT AND PLAN: This is a 47-year-old female with asthma. Admitted with severe sepsis; acute hypoxia; respiratory failure; right upper lobe, right lower lobe community-acquired pneumonia. On meropenem and doxycycline. Currently, now off of antibiotics. Recommend rheumatology evaluation. Huey Steel MD
--- NOTE | 2017-12-07 13:39 | PN ---
DATE: 12/07/2017 FOLLOWUP SUBJECTIVE: The patient is experiencing sharp, right-sided lower chest pain in her back. The patient is experiencing productive cough. No retrosternal chest pain and no dizziness. PHYSICAL EXAMINATION: VITAL SIGNS: Blood pressure 108/70, heart rate 88, temperature 99, respirations 20. HEENT: Pale conjunctivae. CHEST: Diminished breath sounds over the right base. HEART: S1 and S2 regular. ABDOMEN: Soft. EXTREMITIES: No edema. LABORATORY DATA: Hemoglobin and hematocrit 8 and 24.3. White count and platelet count are within normal limit. Today's SMA-7: Sodium 140, potassium 3.8, chloride 105, CO2 of 28, glucose 66, BUN less than 2, creatinine 0.5, calcium is within normal at 7.7. Left foot x-ray, no acute findings. ASSESSMENT: 1. Pneumonia. 2. Improved sinus bradycardia. 3. Obesity. 4. Iron-deficiency anemia with hypokalemia. RECOMMENDATIONS: Continue albuterol inhaler 2.5 mg every 6 hours p.r.n., continue subcutaneous Lovenox 40 mg once a day, Protonix 40 mg p.o. once a day, Ultram 50 mg p.o. every 8 hours for moderate pain. I will follow up the repeat venous Doppler of the lower extremities. Discontinue ProAmatine. Andres Casanova MD
[2017-12-07 17:41] VITALS: RESP 20
[2017-12-08] MEDS: Pantoprazole 40 mg EC Tab PO SCH (05:22)
--- NOTE | 2017-12-08 05:41 | CP.PCM.DIS ---
<Myranda Enrique - Last Filed: 12/08/17 20:23> Provider - Provider Date of Admission: 11/29/17 15:55 Attending physician: Arelis Shelton DO Primary care physician: Tam Mcmanus MD Consults: cardiology, pulmonology, podiatry, infectious disease, GI, ICU Time Spent in preparation of Discharge (in minutes): 45 Diagnosis - Discharge Diagnosis (1) Sepsis Status: Resolved Priority: High (2) PNA (pneumonia) Status: Resolved Priority: High (3) Bradycardia Status: Resolved Priority: High (4) Rheumatoid arthritis Status: Chronic Priority: Medium Hospital Course - Lab Results Lab Results: Micro Results 12/02/17 18:57 Other: Please Indicate Mycobacterial Culture - Preliminary 12/02/17 08:40 Other: Please Indicate Mycobacterial Culture - Preliminary 12/01/17 08:14 Sputum Gram Stain - Final 12/01/17 08:14 Sputum Sputum Culture - Final Yeast Species 12/01/17 08:00 Other: Please Indicate Mycobacterial Culture - Preliminary 11/29/17 16:30 Naris MRSA Culture (Admit) - Final MRSA NOT DETECTED Most Recent Lab Values WBC 9.8 10^3/ul (4.5-11.0) 12/07/17 06:30 RBC 2.79 10^6/uL (3.5-6.1) L 12/07/17 06:30 Hgb 8.0 g/dL (12.0-16.0) L 12/07/17 06:30 Hct 24.3 % (36.0-48.0) L 12/07/17 06:30 MCV 87.1 fl (80.0-105.0) 12/07/17 06:30 MCH 28.7 pg (25.0-35.0) 12/07/17 06:30 MCHC 32.9 g/dl (31.0-37.0) 12/07/17 06:30 RDW 16.7 % (11.5-14.5) H 12/07/17 06:30 Plt Count 227 10^3/uL (120.0-450.0) 12/07/17 06:30 MPV 10.9 fl (7.0-11.0) 12/07/17 06:30 Gran % 64.8 % (50.0-68.0) 12/07/17 06:30 Lymph % (Auto) 19.2 % (22.0-35.0) L 12/07/17 06:30 [place] % (Auto) 11.2 % (1.0-6.0) H 12/07/17 06:30 Eos % (Auto) 4.7 % (1.5-5.0) 12/07/17 06:30 Baso % (Auto) 0.1 % (0.0-3.0) 12/07/17 06:30 Gran # 6.36 (1.4-6.5) 12/07/17 06:30 Lymph # (Auto) 1.9 (1.2-3.4) 12/07/17 06:30 [place] # (Auto) 1.1 (0.1-0.6) H 12/07/17 06:30 Eos # (Auto) 0.5 (0.0-0.7) 12/07/17 06:30 Baso # (Auto) 0.01 K/mm3 (0.0-2.0) 12/07/17 06:30 Neutrophils % (Manual) 50 % (50.0-70.0) 12/04/17 06:30 Band Neutrophils % 4 % (0-2) H 11/29/17 06:10 Lymphocytes % (Manual) 22 % (22.0-35.0) 12/04/17 06:30 Monocytes % (Manual) 21 % (1.0-6.0) H 12/04/17 06:30 Eosinophils % (Manual) 7 % (0.0-3.0) H 12/04/17 06:30 Nucleated RBC % 2 % 12/04/17 06:30 Toxic Granulation Slight 11/29/17 06:10 Platelet Evaluation Normal (NORMAL) 11/29/17 06:10 Plt Clumps, EDTA Present 11/29/17 06:10 Hypochromasia 1+ 11/29/17 06:10 Anisocytosis (manual) 1+ 11/29/17 06:10 PT 15.5 SECONDS (9.4-12.5) H 11/30/17 05:00 INR 1.34 11/30/17 05:00 APTT 28.1 Seconds (25.1-36.5) 11/30/17 05:00 Sodium 140 mmol/L (132-148) 12/07/17 06:30 Potassium 3.8 mmol/L (3.6-5.0) 12/07/17 06:30 Chloride 105 mmol/L (98-107) 12/07/17 06:30 Carbon Dioxide 28 mmol/L (21-33) 12/07/17 06:30 Anion Gap 11 (10-20) 12/07/17 06:30 BUN < 2 mg/dL (7-21) L 12/07/17 06:30 Creatinine 0.5 mg/dl (0.7-1.2) L 12/07/17 06:30 Est GFR ( Amer) > 60 12/07/17 06:30 Est GFR (Non-Af Amer) > 60 12/07/17 06:30 POC Glucose (mg/dL) 63 mg/dL (65-110) L 11/29/17 11:41 Random Glucose 66 mg/dL (70-110) L 12/07/17 06:30 Hemoglobin A1c 4.7 % (4.2-6.5) 11/30/17 12:00 Lactic Acid 1.7 mmol/L (0.7-2.1) 11/30/17 00:45 Calcium 7.7 mg/dL (8.4-10.5) L 12/07/17 06:30 Phosphorus 3.2 mg/dL (2.5-4.5) 12/07/17 06:30 Magnesium 1.7 mg/dL (1.7-2.2) 12/07/17 06:30 Iron 31 ug/dL (45-180) L 11/29/17 06:49 TIBC 325 ug/dL (265-497) 11/29/17 06:49 % Saturation 10 % (20-55) L 11/29/17 06:49 Ferritin 106.0 ng/mL 11/29/17 06:49 Total Bilirubin 0.5 mg/dL (0.2-1.3) 12/03/17 05:30 AST 12 U/L (14-36) L D 12/03/17 05:30 ALT 23 U/L (7-56) 12/03/17 05:30 Alkaline Phosphatase 78 U/L (38-126) 12/03/17 05:30 Lactate Dehydrogenase 752 U/L (333-699) H 11/29/17 05:00 Total Creatine Kinase 46 U/L (35-230) 11/29/17 05:00 Troponin I < 0.01 ng/mL 12/01/17 10:30 Total Protein 5.8 g/dL (5.8-8.3) 12/03/17 05:30 Albumin 2.7 g/dL (3.0-4.8) L 12/03/17 05:30 Globulin 3.1 gm/dL 12/03/17 05:30 Albumin/Globulin Ratio 0.9 (1.1-1.8) L 12/03/17 05:30 Vitamin B12 > 1000 pg/mL (239-931) H 12/01/17 10:48 Folate 4.1 ng/mL 12/01/17 10:48 Procalcitonin 0.76 NG/ML (0.19-0.49) H 12/04/17 09:50 Free T4 1.37 ng/dL (0.78-2.19) 11/30/17 12:00 Thyroxine (T4) 4.0 ug/dL (5.5-11.0) L 12/03/17 09:00 Total T3 0.33 ng/mL (0.97-1.69) L 11/29/17 06:49 TSH 3rd Generation 1.40 mIU/mL (0.46-4.68) 12/03/17 09:00 Beta HCG, Quant 5.48 mIU/mL (0-6.15) 11/29/17 06:49 Urine Color Light yellow (YELLOW) 12/06/17 12:20 Urine Appearance Clear (CLEAR) 12/06/17 12:20 Urine pH 6.5 (4.7-8.0) 12/06/17 12:20 Ur Specific [place] <= 1.005 (1.005-1.035) 12/06/17 12:20 Urine Protein Negative mg/dL (<30 mg/dL) 12/06/17 12:20 Urine Glucose (UA) Negative mg/dL (NEGATIVE) 12/06/17 12:20 Urine Ketones Negative mg/dL (NEGATIVE) 12/06/17 12:20 Urine Blood Trace-lysed (NEGATIVE) H 12/06/17 12:20 Urine Nitrate Negative (NEGATIVE) 12/06/17 12:20 Urine Bilirubin Negative (NEGATIVE) 12/06/17 12:20 Urine Urobilinogen 0.2 E.U./dL (<1 E.U./dL) 12/06/17 12:20 Ur Leukocyte Esterase Negative Caren/uL (NEGATIVE) 12/06/17 12:20 Urine RBC 0 - 2 /hpf (0-2) 12/06/17 12:20 Urine WBC 5 - 10 /hpf (0-6) 12/06/17 12:20 Ur Epithelial Cells 1 - 3 /hpf (0-5) 12/06/17 12:20 Amorphous Sediment Few 11/29/17 06:49 Urine Bacteria Many (NEG) 11/29/17 06:49 Coarse Granular Casts Trace /hpf (0-2) H 11/29/17 06:49 Urine Other Uyeast 11/29/17 06:49 Stool Occult Blood Positive (NEGATIVE) H 12/02/17 13:10 Urine Opiates Screen Negative (NEGATIVE) 11/29/17 13:20 Urine Methadone Screen Negative (NEGATIVE) 11/29/17 13:20 Ur Barbiturates Screen Negative (NEGATIVE) 11/29/17 13:20 Ur Phencyclidine Scrn Negative (NEGATIVE) 11/29/17 13:20 Ur Amphetamines Screen Negative (NEGATIVE) 11/29/17 13:20 U Benzodiazepines Scrn Positive (NEGATIVE) H 11/29/17 13:20 U Oth Cocaine Metabols Negative (NEGATIVE) 11/29/17 13:20 U Cannabinoids Screen Negative (NEGATIVE) 11/29/17 13:20 Rheumatoid Factor <14 IU/mL (<14) 12/02/17 06:10 RONDA Screen Positive (NEGATIVE) H 12/02/17 06:10 RONDA Titer >=1:1280 titer H 12/02/17 06:10 RONDA Pattern Lysosomal 12/02/17 06:10 SS-A Antibody <1.0 neg AI (<1.0 NEGATIVE) 12/02/17 06:10 SS-B Antibody <1.0 neg AI (<1.0 NEGATIVE) 12/02/17 06:10 Sm (Brooks) Antibody <1.0 neg AI (<1.0 NEGATIVE) 12/02/17 06:10 SM/A P MECHANIC Antibody <1.0 neg AI (<1.0 NEGATIVE) 12/02/17 06:10 Scl-70 Antibody <1.0 neg AI (<1.0 NEGATIVE) 12/02/17 06:10 Anti-ds DNA Titer (Crith) TNP 12/02/17 06:10 Anti-ds DNA (Crithidia) Negative (NEGATIVE) 12/02/17 06:10 Ribosomal P Prot Ab <1.0 neg AI (<1.0 NEGATIVE) 12/02/17 06:10 Anti-Mitochondrial Titr 1:160 (<1:20) H 12/02/17 06:10 Anti-Mitochondrial Ab Positive (NEGATIVE) H 12/02/17 06:10 Actin IgG Antibody <20 U 12/02/17 06:10 Striated Muscle Ab TNP 12/02/17 06:10 Myocardial Ab Titer TNP 12/02/17 06:10 Anti-Myocardial Ab Negative (NEGATIVE) 12/02/17 06:10 Reticulin Ab Titer TNP 12/02/17 06:10 Reticulin IgA Antibody Negative (NEGATIVE) 12/02/17 06:10 Thyroperoxidase Ab <1 IU/mL (<9) 12/02/17 06:10 Anti-Parietal Cell Ab <20.0 U 12/02/17 06:10 Complement C3 96 mg/dL (83-193) 12/02/17 06:10 Complement C4 42 mg/dL (15-57) 12/02/17 06:10 Hepatitis A IgM Ab Negative (NEGATIVE) 12/01/17 10:48 Hep Bs Antigen Negative (NEGATIVE) 12/01/17 10:48 Hep B Core IgM Ab Negative (NEGATIVE) 12/01/17 10:48 Hepatitis C Antibody Negative (NEGATIVE) 12/01/17 10:48 HIV 1&2 Ag/Ab, 4th Gen Nonreactive (Nonreactive) 11/29/17 14:00 Ur L.pneumophila Ag Negative (NEGATIVE) 11/29/17 13:20 TB Test (QFT) Nil 0.08 IU/mL 11/29/17 14:00 TB Test Mitogen - Nil 0.02 IU/mL 11/29/17 14:00 TB Test TB - Nil 0.04 IU/mL 11/29/17 14:00 TB Test (QFT) Indeterminate (Negative) H 11/29/17 14:00 Blood Type A POSITIVE 11/29/17 08:30 Antibody Screen Negative 11/29/17 08:30 BBK History Checked Patient has bt 11/29/17 08:30 - Hospital Course Hospital Course: This is a 47 yo F with PMH of RA (on monoclonal antibody tx), asthma, SBO 2/2 intra-abdominal scar tissue, and chronic iron-deficiency anemia on monthly IV iron treatments who presented to [facility] [place] [facility] with worsening shortness of breath, right chest wall pain, chills, and malaise x24 hours. Pt reports awaking from sleep yesterday with the shortness of breath and R chest pain, thought it was her asthma, used her rescue inhaler and received some relief. Remained at home through the day and reports fatigue/malaise throughout the day, mostly sleeping through the day. Minimal PO intake for last 2-3 days due to stress, but drinking water every day, tolerating well. This AM, awoke short of breath again , no relief from multiple doses of rescue inhaler over 90 minutes, so had family call EMS. Chest pain is right-sided, radiates through to back, worse with coughing and deep breathing, is reproducible on palpation, described as soreness. Has dry cough, feels like she has sputum to bring up but has been unable to. Describes shortness of breath as feeling like she can't catch her breath, but not actively gasping for air, not frankly tachypnic. Denies emesis, diarrhea, melena, dysuria, hematuria. Does have mild abdominal pain (again described as soreness), reports dry mouth and infrequent urination despite regularly drinking water daily. Reports compliance with all home medications. No focal weakness, no exacerbation with mobilization at home. Does report 25lb weight loss over last 2-3 months, but also reports caring for sick family member then, increased stress and irregular/decreased meal intake during this time (reports eating 1-2 meals a day during that time). Reports subjective fevers and chills. All other ROS in 12-system review negative. In the ED, patient obtained a CXR, concerning for R upper/middle lobe infiltrate , and UA concerning for UTI. Labs were concerning for Leukocytosis > 30, and vitals were concerning for tachycardia up to 120's, and SBP 80's-90's. However , patient remained fully awake, alert, and neurologically intact throughout interview and exam, and clinically appears dry. Also reports PRN Lasix use for seasonal LE swelling, last used in September 2017, but denies routine use for fluid overload, never told she needs a diuretic for her heart. Later after admission to floor, patient continued to be hypotensive and tachycardic. Lactate was obtained, found to be 3.3, code sepsis called at 1132 , and patient was transferred to the ICU. She was placed on midodrine. She did not require pressors. Patient was placed on isolation for concern of opportunistic infections/TB 2/2 immunosuppression from monoclonal Ab use. Sputum was negative for AFB, and she is no longer on precautions. Patient was transferred to telemetry. She was provided with antibiotics and breathing treatments. Repeat CXR showed resolution of PNA. Patient was seen by podiatry for L foot swelling. LE Dopplers were negative for DVTs. Patient was given medications for pain control. She will follow-up with a inspection and testing supervisor as an outpatient. Upon discharge, patient was not short of breath. Her cough had significantly improved. She was sleeping and eating well. She denied abdominal pain and nausea. Her vitals were stable and bradycardia and hypotension resolved. Discharge Exam - Head Exam Head Exam: ATRAUMATIC, NORMAL INSPECTION - Eye Exam Eye Exam: EOMI, Normal appearance, PERRL - ENT Exam ENT Exam: Mucous Membranes Moist, Normal Exam - Neck Exam Neck exam: Normal Inspection - Respiratory Exam Respiratory Exam: Clear to PA & Lateral, NORMAL BREATHING PATTERN, UNREMARKABLE - Cardiovascular Exam Cardiovascular Exam: REGULAR RHYTHM, +S1, +S2 - GI/Abdominal Exam GI & Abdominal Exam: Normal Bowel Sounds, Soft, Unremarkable. absent: Tenderness - Rectal Exam Rectal Exam: Deferred - Extremities Exam Extremities exam: normal inspection, pedal edema (L foot) - Back Exam Back exam: NORMAL INSPECTION. absent: tenderness - Neurological Exam Neurological exam: Alert, CN II-XII Intact, Normal Gait, Oriented x3 - Psychiatric Exam Psychiatric exam: Normal Affect, Normal Mood - Skin Skin Exam: Dry, Intact, Normal Color, Warm Discharge Plan - Discharge Medications Prescriptions: Albuterol HFA [Ventolin HFA 90 mcg/actuation (8 g)] 1 puff IH Q6 #1 inhaler guaiFENesin [Mucinex LA] 600 mg PO BID #6 tab - Follow Up Plan Condition: IMPROVED Disposition: HOME/ ROUTINE Patient education suggested?: Yes Instructions: Rheumatoid Arthritis, Pneumonia in Adults, Chest Pain (DC) Additional Instructions: 1) Please follow up with your PMD within one week of discharge. 2) Patient to take any medications as directed, unless otherwise indicated. 3) Patient to follow up with [facility] [employer] as an outpatient. 4) Please return to the ED for any return of symptoms. Referrals: Tam Mcmansu MD [Primary Care Provider] - <Miriam Jaime - Last Filed: 12/09/17 15:09> Provider - Provider Date of Admission: 11/29/17 15:55 Attending physician: Arelis Shelton DO Primary care physician: Tam Mcmanus MD Hospital Course - Lab Results Lab Results: Micro Results 12/01/17 08:00 Other: Please Indicate Mycobacterial Culture - Preliminary 12/02/17 18:57 Other: Please Indicate Mycobacterial Culture - Preliminary 12/02/17 08:40 Other: Please Indicate Mycobacterial Culture - Preliminary 12/01/17 08:14 Sputum Gram Stain - Final 12/01/17 08:14 Sputum Sputum Culture - Final Yeast Species 11/29/17 16:30 Naris MRSA Culture (Admit) - Final MRSA NOT DETECTED Most Recent Lab Values WBC 9.8 10^3/ul (4.5-11.0) 12/08/17 09:30 RBC 3.13 10^6/uL (3.5-6.1) L 12/08/17 09:30 Hgb 8.8 g/dL (12.0-16.0) L 12/08/17 09:30 Hct 27.5 % (36.0-48.0) L 12/08/17 09:30 MCV 87.9 fl (80.0-105.0) 12/08/17 09:30 MCH 28.1 pg (25.0-35.0) 12/08/17 09:30 MCHC 32.0 g/dl (31.0-37.0) 12/08/17 09:30 RDW 17.1 % (11.5-14.5) H 12/08/17 09:30 Plt Count 265 10^3/uL (120.0-450.0) 12/08/17 09:30 MPV 10.7 fl (7.0-11.0) 12/08/17 09:30 Gran % 70.7 % (50.0-68.0) H 12/08/17 09:30 Lymph % (Auto) 18.8 % (22.0-35.0) L 12/08/17 09:30 [place] % (Auto) 6.6 % (1.0-6.0) H 12/08/17 09:30 Eos % (Auto) 3.8 % (1.5-5.0) 12/08/17 09:30 Baso % (Auto) 0.1 % (0.0-3.0) 12/08/17 09:30 Gran # 6.94 (1.4-6.5) H 12/08/17 09:30 Lymph # (Auto) 1.9 (1.2-3.4) 12/08/17 09:30 [place] # (Auto) 0.7 (0.1-0.6) H 12/08/17 09:30 Eos # (Auto) 0.4 (0.0-0.7) 12/08/17 09:30 Baso # (Auto) 0.01 K/mm3 (0.0-2.0) 12/08/17 09:30 Neutrophils % (Manual) 50 % (50.0-70.0) 12/04/17 06:30 Band Neutrophils % 4 % (0-2) H 11/29/17 06:10 Lymphocytes % (Manual) 22 % (22.0-35.0) 12/04/17 06:30 Monocytes % (Manual) 21 % (1.0-6.0) H 12/04/17 06:30 Eosinophils % (Manual) 7 % (0.0-3.0) H 12/04/17 06:30 Nucleated RBC % 2 % 12/04/17 06:30 Toxic Granulation Slight 11/29/17 06:10 Platelet Evaluation Normal (NORMAL) 11/29/17 06:10 Plt Clumps, EDTA Present 11/29/17 06:10 Hypochromasia 1+ 11/29/17 06:10 Anisocytosis (manual) 1+ 11/29/17 06:10 PT 15.5 SECONDS (9.4-12.5) H 11/30/17 05:00 INR 1.34 11/30/17 05:00 APTT 28.1 Seconds (25.1-36.5) 11/30/17 05:00 Sodium 141 mmol/L (132-148) 12/08/17 09:30 Potassium 3.8 mmol/L (3.6-5.0) 12/08/17 09:30 Chloride 105 mmol/L (98-107) 12/08/17 09:30 Carbon Dioxide 27 mmol/L (21-33) 12/08/17 09:30 Anion Gap 12 (10-20) 12/08/17 09:30 BUN 2 mg/dL (7-21) L 12/08/17 09:30 Creatinine 0.5 mg/dl (0.7-1.2) L 12/08/17 09:30 Est GFR ( Amer) > 60 12/08/17 09:30 Est GFR (Non-Af Amer) > 60 12/08/17 09:30 POC Glucose (mg/dL) 63 mg/dL (65-110) L 11/29/17 11:41 Random Glucose 91 mg/dL (70-110) 12/08/17 09:30 Hemoglobin A1c 4.7 % (4.2-6.5) 11/30/17 12:00 Lactic Acid 1.7 mmol/L (0.7-2.1) 11/30/17 00:45 Calcium 8.2 mg/dL (8.4-10.5) L 12/08/17 09:30 Phosphorus 2.9 mg/dL (2.5-4.5) 12/08/17 09:30 Magnesium 1.9 mg/dL (1.7-2.2) 12/08/17 09:30 Iron 31 ug/dL (45-180) L 11/29/17 06:49 TIBC 325 ug/dL (265-497) 11/29/17 06:49 % Saturation 10 % (20-55) L 11/29/17 06:49 Ferritin 106.0 ng/mL 11/29/17 06:49 Total Bilirubin 0.6 mg/dL (0.2-1.3) 12/08/17 09:30 AST 17 U/L (14-36) 12/08/17 09:30 ALT 17 U/L (7-56) 12/08/17 09:30 Alkaline Phosphatase 83 U/L (38-126) 12/08/17 09:30 Lactate Dehydrogenase 752 U/L (333-699) H 11/29/17 05:00 Total Creatine Kinase 46 U/L (35-230) 11/29/17 05:00 Troponin I < 0.01 ng/mL 12/01/17 10:30 Total Protein 6.7 g/dL (5.8-8.3) 12/08/17 09:30 Albumin 3.3 g/dL (3.0-4.8) 12/08/17 09:30 Globulin 3.4 gm/dL 12/08/17 09:30 Albumin/Globulin Ratio 1.0 (1.1-1.8) L 12/08/17 09:30 Vitamin B12 > 1000 pg/mL (239-931) H 12/01/17 10:48 Folate 4.1 ng/mL 12/01/17 10:48 Procalcitonin 0.76 NG/ML (0.19-0.49) H 12/04/17 09:50 Free T4 1.37 ng/dL (0.78-2.19) 11/30/17 12:00 Thyroxine (T4) 4.0 ug/dL (5.5-11.0) L 12/03/17 09:00 Total T3 0.33 ng/mL (0.97-1.69) L 11/29/17 06:49 TSH 3rd Generation 1.40 mIU/mL (0.46-4.68) 12/03/17 09:00 Beta HCG, Quant 5.48 mIU/mL (0-6.15) 11/29/17 06:49 Urine Color Light yellow (YELLOW) 12/06/17 12:20 Urine Appearance Clear (CLEAR) 12/06/17 12:20 Urine pH 6.5 (4.7-8.0) 12/06/17 12:20 Ur Specific [place] <= 1.005 (1.005-1.035) 12/06/17 12:20 Urine Protein Negative mg/dL (<30 mg/dL) 12/06/17 12:20 Urine Glucose (UA) Negative mg/dL (NEGATIVE) 12/06/17 12:20 Urine Ketones Negative mg/dL (NEGATIVE) 12/06/17 12:20 Urine Blood Trace-lysed (NEGATIVE) H 12/06/17 12:20 Urine Nitrate Negative (NEGATIVE) 12/06/17 12:20 Urine Bilirubin Negative (NEGATIVE) 12/06/17 12:20 Urine Urobilinogen 0.2 E.U./dL (<1 E.U./dL) 12/06/17 12:20 Ur Leukocyte Esterase Negative Caren/uL (NEGATIVE) 12/06/17 12:20 Urine RBC 0 - 2 /hpf (0-2) 12/06/17 12:20 Urine WBC 5 - 10 /hpf (0-6) 12/06/17 12:20 Ur Epithelial Cells 1 - 3 /hpf (0-5) 12/06/17 12:20 Amorphous Sediment Few 11/29/17 06:49 Urine Bacteria Many (NEG) 11/29/17 06:49 Coarse Granular Casts Trace /hpf (0-2) H 11/29/17 06:49 Urine Other Uyeast 11/29/17 06:49 Stool Occult Blood Positive (NEGATIVE) H 12/02/17 13:10 Urine Opiates Screen Negative (NEGATIVE) 11/29/17 13:20 Urine Methadone Screen Negative (NEGATIVE) 11/29/17 13:20 Ur Barbiturates Screen Negative (NEGATIVE) 11/29/17 13:20 Ur Phencyclidine Scrn Negative (NEGATIVE) 11/29/17 13:20 Ur Amphetamines Screen Negative (NEGATIVE) 11/29/17 13:20 U Benzodiazepines Scrn Positive (NEGATIVE) H 11/29/17 13:20 U Oth Cocaine Metabols Negative (NEGATIVE) 11/29/17 13:20 U Cannabinoids Screen Negative (NEGATIVE) 11/29/17 13:20 Rheumatoid Factor <14 IU/mL (<14) 12/02/17 06:10 RONDA Screen Positive (NEGATIVE) H 12/02/17 06:10 RONDA Titer >=1:1280 titer H 12/02/17 06:10 RONDA Pattern Lysosomal 12/02/17 06:10 SS-A Antibody <1.0 neg AI (<1.0 NEGATIVE) 12/02/17 06:10 SS-B Antibody <1.0 neg AI (<1.0 NEGATIVE) 12/02/17 06:10 Sm (Brooks) Antibody <1.0 neg AI (<1.0 NEGATIVE) 12/02/17 06:10 SM/A P MECHANIC Antibody <1.0 neg AI (<1.0 NEGATIVE) 12/02/17 06:10 Scl-70 Antibody <1.0 neg AI (<1.0 NEGATIVE) 12/02/17 06:10 Anti-ds DNA Titer (Crith) TNP 12/02/17 06:10 Anti-ds DNA (Crithidia) Negative (NEGATIVE) 12/02/17 06:10 Ribosomal P Prot Ab <1.0 neg AI (<1.0 NEGATIVE) 12/02/17 06:10 Anti-Mitochondrial Titr 1:160 (<1:20) H 12/02/17 06:10 Anti-Mitochondrial Ab Positive (NEGATIVE) H 12/02/17 06:10 Actin IgG Antibody <20 U 12/02/17 06:10 Striated Muscle Ab TNP 12/02/17 06:10 Myocardial Ab Titer TNP 12/02/17 06:10 Anti-Myocardial Ab Negative (NEGATIVE) 12/02/17 06:10 Reticulin Ab Titer TNP 12/02/17 06:10 Reticulin IgA Antibody Negative (NEGATIVE) 12/02/17 06:10 Thyroperoxidase Ab <1 IU/mL (<9) 12/02/17 06:10 Anti-Parietal Cell Ab <20.0 U 12/02/17 06:10 Complement C3 96 mg/dL (83-193) 12/02/17 06:10 Complement C4 42 mg/dL (15-57) 12/02/17 06:10 Hepatitis A IgM Ab Negative (NEGATIVE) 12/01/17 10:48 Hep Bs Antigen Negative (NEGATIVE) 12/01/17 10:48 Hep B Core IgM Ab Negative (NEGATIVE) 12/01/17 10:48 Hepatitis C Antibody Negative (NEGATIVE) 12/01/17 10:48 HIV 1&2 Ag/Ab, 4th Gen Nonreactive (Nonreactive) 11/29/17 14:00 Ur L.pneumophila Ag Negative (NEGATIVE) 11/29/17 13:20 TB Test (QFT) Nil 0.08 IU/mL 11/29/17 14:00 TB Test Mitogen - Nil IU/mL (()) 12/05/17 06:00 TB Test TB - Nil 0.04 IU/mL 11/29/17 14:00 TB Test (QFT) TNP 12/05/17 06:00 Blood Type A POSITIVE 11/29/17 08:30 Antibody Screen Negative 11/29/17 08:30 BBK History Checked Patient has bt 11/29/17 08:30 Attending/Attestation - Attestation I have personally seen and examined this patient.: Yes I have fully participated in the care of the patient.: Yes I have reviewed all pertinent clinical information, including history, physical exam and plan: Yes Notes (Text): 12/09/17 15:00 attending note; patient seen and examined with resident. 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 1. Severe sepsis.Secondary to UTI and pneumonia. currently sepsis is resolved. Patient is afebrile and nontoxic. Denies any shortness of breath. Tolerating diet well. Ambulating fine without oxygen. S/P treatment with Zyvox, doxycycline and meropenem. Initial Chest CT shows dense right upper lobe infiltrate with patchy infiltrate right lower lobe, boderline at left lower lobe. CTA chest per radiologist showed no pulmonary embolus. Repeat chest x-ray shows no active disease. Urine culture positive for streptococcus anginosus. Blood culture with no growth. Quantiferon indeterminate. Sputum for AFB negative x 3. 2. Left foot edema and pain. Bilateral lower extremity edema. Repeat bilateral lower extremity dopplers negative for DVT . X-ray of the left foot per radiologist shows no acute finidings. 3. Abdominal pain; Resolved. Evaluated by GI. CT abd/pelvis per radiologist showed post gastric bypass operative changes are identified with no bowel obstruction appreciable or gross local bowel mesenteric reaction; no ascites or free air; prior cholecystectomy. Hepatitis panel negative. 4. Iron deficiency anemia. Patient gets IV iron infusions as an outpatient. 5. Rheumatoid Arthritis. Needs close follow-up with rheumatology. patient will be discharged home today. Follow-up with PMD Dr. Mcmanus. Case was discussed in detail with the patient regarding current diagnosis and treatment plan.
[2017-12-08 07:10] VITALS: O2SAT 97
--- NOTE | 2017-12-08 08:46 | CP.PCM.PN ---
<Shauna Loza - Last Filed: 12/08/17 11:19> Subjective - Date & Time of Evaluation Date of Evaluation: 12/08/17 Time of Evaluation: 08:46 - Subjective Subjective: [id number] ID Progress note for Dr. Gonzalez Patient seen and examined at bedside this AM eating breakfast. Overnight patient had no acute events as per nursing. Patient is eagerly awaiting discharge. She reported a slight headache around 3am but stated it went away - denied associated nausea, vomiting, ringing of the ears, blurry vision. On complete ROS patient denied acute complaints of fever, chills, dizziness, chest pain, palpitations, SOB, cough, abd pain, nausea, vomiting, bowel/bladder complaints, pain in her legs b/l. She reported her pleuritic chest pain with deep breaths had resolved. Patient did admit to some b/l foot swelling which was making it difficult for her to walk- patient is going to be seen by podiatry in house and will f/u with her edi analyst outpatient. Objective - Vital Signs/Intake and Output Vital Signs (last 24 hours): Temp Pulse Resp BP Pulse Ox 99 F 70 20 112/60 97 12/08/17 06:00 12/08/17 06:00 12/08/17 06:00 12/08/17 06:00 12/08/17 06:00 Intake and Output: 12/08/17 12/08/17 06:59 18:59 Intake Total 400 Balance 400 - Medications Medications: Current Medications Acetaminophen (Tylenol 325mg Tab) 650 mg PO Q6H PRN PRN Reason: Fever >100.4 F OR mild pain Last Admin: 12/05/17 13:36 Dose: 650 mg Albuterol Sulfate (Albuterol 0.083% Inhal Bharati (2.5 Mg/3 Ml) Ud) 2.5 mg INH [id number] PRN PRN Reason: Shortness of Breath Bacitracin (Bacitracin) 1 ea TOP DAILY ANNA Last Admin: 12/07/17 09:40 Dose: 1 ea Enoxaparin Sodium (Lovenox) 40 mg SC DAILY ANNA PRN Reason: Protocol Last Admin: 12/07/17 09:40 Dose: 40 mg Guaifenesin (Mucinex La) 600 mg PO BID ANNA Last Admin: 12/07/17 17:42 Dose: 600 mg Lactobacillus Acidophilus (Bacid Acidophilus) 1 cap PO BID ANNA Last Admin: 12/07/17 17:42 Dose: 1 cap Ondansetron HCl (Zofran Inj) 4 mg IVP Q6H PRN PRN Reason: Nausea/Vomiting Last Admin: 11/30/17 13:00 Dose: 4 mg Pantoprazole Sodium (Protonix Ec Tab) 40 mg PO 0600 ANNA Last Admin: 12/08/17 05:22 Dose: 40 mg Tramadol HCl (Ultram) 50 mg PO Q8 PRN PRN Reason: Pain, moderate (4-7) Last Admin: 12/08/17 06:40 Dose: 50 mg - Labs Labs: 12/07/17 06:30 12/07/17 06:30 PT 15.5 SECONDS (9.4-12.5) H 11/30/17 05:00 INR 1.34 11/30/17 05:00 APTT 28.1 Seconds (25.1-36.5) 11/30/17 05:00 - Constitutional Appears: Non-toxic, No Acute Distress - Head Exam Head Exam: ATRAUMATIC, NORMAL INSPECTION, NORMOCEPHALIC - Eye Exam Eye Exam: EOMI, Normal appearance. absent: Conjunctival injection, Scleral icterus - ENT Exam ENT Exam: Mucous Membranes Moist - Neck Exam Neck Exam: Full ROM - Respiratory Exam Respiratory Exam: Decreased Breath Sounds, NORMAL BREATHING PATTERN. absent: Accessory Muscle Use, Rales, Rhonchi, Wheezes, Respiratory Distress - Cardiovascular Exam Cardiovascular Exam: REGULAR RHYTHM, RRR, +S1, +S2 - GI/Abdominal Exam GI & Abdominal Exam: Soft, Normal Bowel Sounds. 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 ID consulted for sepsis secondary to pna Plan: -Severe sepsis with acute hypoxic respiratory failure from severe right upper lobe, right lower lobe CAP -In light of patient's hx of RA on anti-TNFi needed to r/o TB AFB negative x 3 -patient was on Doxy and Merrem for 7 days total- currently off Abx procalcitonin 11/29 20.61 --> 0.76 on 12/04 -Legionella Ag is negative -Quantiferon TB test is indeterminate -HIV test is non-reactive -continue management as per primary -recommend rheum and podiatry f/u as outpatient Discussed with Dr. Carlos Loza PGY3 <Abdi Gonzalez - Last Filed: 12/08/17 15:10> Objective - Vital Signs/Intake and Output Vital Signs (last 24 hours): Temp Pulse Resp BP Pulse Ox 99.2 F 86 20 92/60 L 97 12/08/17 12:00 12/08/17 12:00 12/08/17 12:00 12/08/17 12:00 12/08/17 06:00 Intake and Output: 12/08/17 12/08/17 06:59 18:59 Intake Total 400 Balance 400 - Medications Medications: Current Medications Acetaminophen (Tylenol 325mg Tab) 650 mg PO Q6H PRN PRN Reason: Fever >100.4 F OR mild pain Last Admin: 12/05/17 13:36 Dose: 650 mg Albuterol Sulfate (Albuterol 0.083% Inhal Bharati (2.5 Mg/3 Ml) Ud) 2.5 mg INH C7HPMRT PRN PRN Reason: Shortness of Breath Bacitracin (Bacitracin) 1 ea TOP DAILY [facility] Last Admin: 12/08/17 10:07 Dose: 1 ea Guaifenesin (Mucinex La) 600 mg PO BID ANNA Last Admin: 12/08/17 10:07 Dose: 600 mg Lactobacillus Acidophilus (Bacid Acidophilus) 1 cap PO BID ANNA Last Admin: 12/08/17 10:06 Dose: 1 cap Ondansetron HCl (Zofran Inj) 4 mg IVP Q6H PRN PRN Reason: Nausea/Vomiting Last Admin: 11/30/17 13:00 Dose: 4 mg Pantoprazole Sodium (Protonix Ec Tab) 40 mg PO 0600 [facility] Last Admin: 12/08/17 05:22 Dose: 40 mg Tramadol HCl (Ultram) 50 mg PO Q8 PRN PRN Reason: Pain, moderate (4-7) Last Admin: 12/08/17 06:40 Dose: 50 mg - Labs Labs: 12/08/17 09:30 12/08/17 09:30 PT 15.5 SECONDS (9.4-12.5) H 11/30/17 05:00 INR 1.34 11/30/17 05:00 APTT 28.1 Seconds (25.1-36.5) 11/30/17 05:00 Assessment and Plan - Assessment and Plan (Free Text) Plan: Infectious Diseases Attending Physician Addendum Patient seen and examined, discussed with medical coordinator pesticide use. I have reviewed the pertinent clinical information for the patient. I have full participated in the patient's care. I agree with the above findings, assessment and plan and in addition: Assessment S/P severe sepsis with acute hypoxic respiratory failure from severe right upper lobe, right lower lobe community-acquired pneumonia, clinically improved and S/P treatment with antibiotics Rheumatoid arthritis on anti-TNF inihibitor bradycardia, etiology to be determined rheumatoid arthritis and has been taking anti-TNF inhibitor for the past 2 years (although intermittently) obesity with BMI 37 arthritis asthma Plan completed course of antibiotics - continue to monitor clinically HIV test is non-reactive
[2017-12-08 09:48] LABS: BASO # 0.01 K/mm3 (0.0-2.0); BASO % 0.1 % (0.0-3.0); EOS # 0.4 (0.0-0.7); EOS % 3.8 % (1.5-5.0); GRAN # 6.94 (1.4-6.5); GRAN % 70.7 % (50.0-68.0); HEMOGLOBIN 8.8 g/dL (12.0-16.0); LYMPH # 1.9 (1.2-3.4); LYMPH % 18.8 % (22.0-35.0); MEAN CELL VOLUME 87.9 fl (80.0-105.0); MEAN CORPUSCULAR HEMOGLOBIN 28.1 pg (25.0-35.0); MEAN PLATELET VOLUME 10.7 fl (7.0-11.0); MONO # 0.7 (0.1-0.6); MONO % 6.6 % (1.0-6.0); RBC 3.13 10^6/uL (3.5-6.1); RED CELL DISTRIBUTION WIDTH 17.1 % (11.5-14.5); WHITE BLOOD COUNT 9.8 10^3/ul (4.5-11.0)
[2017-12-08 10:02] LABS: ALBUMIN 3.3 g/dL (3.0-4.8); ALT/SGPT 17 U/L (7-56); AST/SGOT 17 U/L (14-36); BLOOD UREA NITROGEN 2 mg/dL (7-21); CALCIUM 8.2 mg/dL (8.4-10.5); GFR NON-AFRICAN AMERICAN > 60
[2017-12-08] MEDS: Lactobacillus Acidophilus 500 MU Cap PO SCH (10:06)
[2017-12-08] MEDS: Enoxaparin 40 mg Syringe SC SCH (10:07)
[2017-12-08] MEDS: guaiFENesin 600 mg ER Tab PO SCH (10:07)
[2017-12-08] MEDS: Bacitracin 500 Units/gm Oint Foilpak UD TOP SCH (10:07)
--- NOTE | 2017-12-08 11:43 | PN ---
DATE: 12/08/2017 SUBJECTIVE: The patient denies chest pain. She is experiencing productive cough. PHYSICAL EXAMINATION: VITAL SIGNS: Blood pressure 112/60, heart rate 70, temperature 99, respirations 20. HEENT: Pale conjunctivae. CHEST: Minimal basilar rhonchi. HEART: S1 and S2 regular. EXTREMITIES: No edema. LABORATORY DATA: Antimitochondrial antibody is positive, the titer is 160. ASSESSMENT: 1. Pneumonia. 2. Rheumatoid arthritis. 3. Possible lupus. 4. Anemia. 5. Improved sinus bradycardia. RECOMMENDATIONS: Continue current Lactobacillus acidophilus. Continue prophylactic subcutaneous Lovenox, oral Protonix and Tylenol. The patient was given copy for lupus titers to present it to her clinical molecular geneticist whom she will see as an outpatient in [place]. Andres Casanova MD
--- NOTE | 2017-12-08 12:23 | US ---
HISTORY: Leg pain and swelling. Evaluate for DVT PHYSICIAN(S): Edwin Brooks MD. TECHNIQUE: Duplex sonography and color-flow Doppler with graded compression were used to evaluate the deep venous systems of both lower extremities. The exam is somewhat limited by edema and body habitus FINDINGS: The visualized deep venous systems of both lower extremities are sonographically normal and compressible. Normal wave forms and augmentation are seen. There is no sonographic evidence for deep venous thrombosis in the visualized segments of both lower extremities. IMPRESSION: No sonographic evidence for deep venous thrombosis in the visualized segments of both lower extremities.
[2017-12-08 12:51] VITALS: BP 92/60; PULSE 86; TEMP 99.2
== END 2017-12-08 15:53 | disposition home or self-care (01) | DRG 871 ==
LOC: ED 05:04 → ERH 07:04 → 3RSO 10:13 → OBSVTOIN 15:55 → ICU 16:05 → 2RNO 12-04 01:44
PROVIDERS: ADMIT Internal Medicine; ATTEND Hospitalist
DX: A41.9 Sepsis, unspecified organism (principal); J96.01 Acute respiratory failure with hypoxia; R65.21 Severe sepsis with septic shock; J18.9 Pneumonia, unspecified organism; N39.0 Urinary tract infection, site not specified; J44.0 Chronic obstructive pulmonary disease with (acute) lower respiratory infection; J98.11 Atelectasis; E87.2 Acidosis; Z87.01 Personal history of pneumonia (recurrent); Z98.84 Bariatric surgery status; M06.9 Rheumatoid arthritis, unspecified; D50.9 Iron deficiency anemia, unspecified; R53.81 Other malaise; R63.4 Abnormal weight loss; R00.0 Tachycardia, unspecified; Z68.37 Body mass index [BMI] 37.0-37.9, adult; M19.90 Unspecified osteoarthritis, unspecified site; E66.01 Morbid (severe) obesity due to excess calories; R63.0 Anorexia; R00.1 Bradycardia, unspecified; E87.6 Hypokalemia; Z78.9 Other specified health status; F41.1 Generalized anxiety disorder; I27.20 Pulmonary hypertension, unspecified; I10 Essential (primary) hypertension; G89.29 Other chronic pain; I35.1 Nonrheumatic aortic (valve) insufficiency; M21.612 Bunion of left foot; T38.0X5A Adverse effect of glucocorticoids and synthetic analogues, initial encounter; Z82.49 Family history of ischemic heart disease and other diseases of the circulatory system